=== PATIENT | female | born 1940 | race Caucasian/White ===

== ENCOUNTER 2022-08-01 12:37 | Outpatient (CLI) | payer MEDICARE, OTHER, SELFPAY ==
[2022-08-01 15:31] LABS: Chloride* 105 mmol/L (96-114)
[2022-08-01 15:32] LABS: Potassium* 4.5 mmol/L (3.6-5.1); Sodium* 139 mmol/L (135-149)
[2022-08-01 15:34] LABS: Carbon Dioxide* 30 mmol/L (20-32); Cholesterol* 193 mg/dL (90-199); Creatinine* 1.3 mg/dL (0.5-1.5); Estimated Glomerular Filt Rate 42 ml/min
[2022-08-01 15:35] LABS: Blood Urea Nitrogen* 30 mg/dL (7-30); Calcium* 8.9 mg/dL (8.4-10.6); Glucose* 81 mg/dL (60-115); HDL Cholesterol* 50 mg/dL (>=50); LDL Cholesterol Calculated 109 mg/dL (<100); Triglycerides* 168 mg/dL (40-149)
[2022-08-01 15:51] LABS: Vitamin D 25 Hydroxy* 31 ng/mL (30-80)
== END 2022-08-01 12:38 | disposition home or self-care (01) ==
PROVIDERS: PCP Internal Medicine; Visit Provider Internal Medicine
DX: M81.0 Age-related osteoporosis without current pathological fracture (principal); I10 Essential (primary) hypertension; Z13.6 Encounter for screening for cardiovascular disorders
CPT/HCPCS: 80048; 80061; 82306

== ENCOUNTER 2023-01-31 12:58 | Outpatient (CLI) | payer MEDICARE, OTHER, SELFPAY | END 2023-01-31 12:59 | disposition home or self-care (01) | LOC: AMB 02-01 09:10 | PROVIDERS: PCP Internal Medicine; Visit Provider Family Medicine | DX: J96.91 Respiratory failure, unspecified with hypoxia (principal) | CPT/HCPCS: A0425; A0428 ==

== ENCOUNTER 2023-03-21 13:50 | Inpatient (IN) | payer MEDICARE, OTHER, SELFPAY ==
[2023-03-21] VITALS (21 sets, daily range): BP systolic 82–146; BP diastolic 41–127; PULSE 76–94; RESP 18–24; TEMP 36.2–37.8; O2SAT 88–100; BMI 26.5; BMI 26.7
--- NOTE | 2023-03-21 14:07 | ED_ITS ---
HPI - General Adult General Time Seen by Provider: 14:07 Date Seen: 03/21/23 Chief complaint: Cough Stated complaint: Cough, low O2/BP Time Seen by Provider: 03/21/23 13:53 Source: patient and RN notes reviewed Mode of arrival: ambulatory Limitations: no limitations History of Present Illness HPI narrative: Patient is an 82-year-old female accompanied by her referred by her physical therapist for hypoxia and hypotension at her appointment today. She states she is not lightheaded, does not feel weak. Her feels that she was more ?lethargic? today. She believes she started coughing today, her thinks is probably last night. She does not think she aspirated but her isn't sure. There are no documented fevers. No other concerning symptoms. She was 88% at physical therapy and reportedly usually is in the higher 90s on her oxygenation. She was hospitalized January 26 through January 31 here at [place] for aspiration pneumonia. There reportedly was a speech pathology assessment but I do not see it at this time. 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 She has been taking her anticoagulant for which she is on this for history of pulmonary embolism. Related Data Home Medications Medication Instructions Recorded Confirmed albuterol 90 mcg/actuation aerosol 2 spray inhalation Q4H PRN 08/08/22 03/21/23 inhaler calcium carbonate 500 mg calcium 500 mg PO DAILY 08/08/22 03/21/23 (1,250 mg) tablet cyanocobalamin (vitamin B-12) 100 100 mcg PO DAILY 08/08/22 03/21/23 mcg tablet magnesium oxide 400 mg PO DAILY 08/08/22 03/21/23 melatonin 3 mg capsule 3 mg PO HS PRN 08/08/22 03/21/23 dexamethasone 4 mg tablet 20 mg PO .WEEKLY 01/17/23 03/21/23 carvedilol 12.5 mg tablet 6.25 mg PO BID 01/27/23 03/21/23 mirtazapine 7.5 mg tablet 7.5 mg PO HS 01/27/23 03/21/23 pregabalin 75 mg capsule 75 mg PO DAILY 01/27/23 03/21/23 Previous Rx's Medication Instructions Recorded rivaroxaban 20 mg tablet (Xarelto) See Rx Instructions .Route 10/05/22 .COMPLEX #90 tabs acetaminophen 325 mg tablet 650 mg (2 x 325 mg) PO QID PRN #30 01/31/23 tabs Allergies Allergy/AdvReac Type Severity Reaction Status Date / Time No Known Allergies Allergy Unknown Verified 03/21/23 16:15 Review of Systems Status of ROS: Reports: 6 or more systems reviewed and unremarkable except as noted in History and [facility] History History of breast cancer ?Z85.3 - Personal history of malignant neoplasm of breast (ICD-10) Surgical History History of placement of ear tubes (10/22/12) ?Z96.22 - Myringotomy tube(s) status (ICD-10) 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 They also have a home in [place] but have primarily been living here since [facility]. Home here is handicap assessable in the live on 1 level. They have a caregiver who comes to their h ome in the afternoon 3 days a week from 130-430 on Monday and . Remote history of minimal smoking. She drinks up to a half glass of wine a day and her notes she is not even drinking her half glass every day anymore What is your current living situation?: I presently have a place to live Problems where you live: no known problems In the past 12 months, utilities in danger of being shut off: no In the past 12 mos, have been you worried that your food would run out before you had money to buy more?: never true In the past 12 mos, the food you bought just didn't last and you didn't have money to buy more?: never true Highest level of school completed/degree received: Bachelor's degree Smoking Status: Never smoker Do you use any of these nicotine containing products: None Second hand tobacco smoke exposure: No How often do you have a drink containing alcohol: 2-4 times a month Alcohol type: wine How many standard drinks containing alcohol do you have on a typical day: 1 or 2 How often do you have six or more drinks on one occasion: Never AUDIT-C Alcohol total score: 2 Non-prescribed substance use: denies use Caffeine: Yes (1 CAN PEPSIS/DAY) How often does anyone, including family, friends and others, physically hurt you : never How often does anyone, including family, friends and others, insult or talk down to you: never How often does anyone, including family, friends and others, threaten you with harm: never How often does anyone, including family, friends and others, scream or curse at you: never Little interest or pleasure in doing things: not at all Feeling down, depressed, or hopeless: not at all service: No Exam Const: Vital Signs, click to edit/add: Vital Signs - 24 hr 03/21/23 13:54 03/21/23 15:02 03/21/23 15:02 Temperature 97.1 F L Pulse Rate Pulse Rate [Left] 76 Respiratory Rate 18 Blood Pressure Blood Pressure [Ri ght Forearm] Blood Pressure [Ri ght Upper Arm] 128/80 Pulse Oximetry 88 100 100 Oxygen Delivery Me thod Room Air Nasal Cannula Oxygen Flow Rate 2 03/21/23 16:25 03/21/23 16:28 03/21/23 16:29 Temperature 97.3 F L Pulse Rate 86 87 Pulse Rate [Left] 94 Respiratory Rate 20 Blood Pressure 141/123 H Blood Pressure [Ri ght Forearm] Blood Pressure [Ri ght Upper Arm] 143/127 H Pulse Oximetry 96 94 94 Oxygen Delivery Me thod Nasal Cannula Nasal Cannula Nasal Cannula Oxygen Flow Rate 1 1 1 03/21/23 16:30 03/21/23 16:33 03/21/23 16:38 Temperature Pulse Rate 87 88 Pulse Rate [Left] Respiratory Rate Blood Pressure 143/127 H Blood Pressure [Ri ght Forearm] 146/89 H Blood Pressure [Ri ght Upper Arm] Pulse Oximetry 95 92 Oxygen Delivery Me thod Nasal Cannula Nasal Cannula Oxygen Flow Rate 1 1 03/21/23 16:38 03/21/23 16:39 03/21/23 17:00 Temperature Pulse Rate 91 88 89 Pulse Rate [Left] Respiratory Rate Blood Pressure 146/89 H Blood Pressure [Ri ght Forearm] Blood Pressure [Ri ght Upper Arm] Pulse Oximetry 91 93 92 Oxygen Delivery Me thod Nasal Cannula Nasal Cannula Nasal Cannula Oxygen Flow Rate 1 1 1 03/21/23 17:03 Temperature Pulse Rate 89 Pulse Rate [Left] Respiratory Rate Blood Pressure 115/84 Blood Pressure [Ri ght Forearm] Blood Pressure [Ri t Upper Arm] Pulse Oximetry 93 Oxygen Delivery Me thod Nasal Cannula Oxygen Flow Rate 1 Documenting provider has reviewed patient's vital signs: yes Common normals: no apparent distress, oriented x3, no limitations and alert General appearance: cooperative, comfortable, well kempt and frail appearing HENMT: Common normals: normocephalic, head/scalp atraumatic, hearing grossly normal bilaterally and external nose normal Head and scalp: normocephalic and atraumatic Face and sinus: normal facial exam Nose: external nose normal Eye: Common normals: PERRL, EOMs intact bilaterally, conjunctivae normal and no scleral icterus Conjunctiva: conjunctiva(e) normal Pupil: PERRL Neck & C-Spine: Common normals: full ROM, no lymphadenopathy, supple, no meningeal signs, no JVD and thyroid normal Thyroid: thyroid normal Chest: Common normals: inspection of chest normal and palpation of chest normal Resp: Common normals: normal respiratory effort, no retractions and no use of accessory muscles Effort & inspection: able to speak in complete sentences Other: Has rhonchi heard throughout, difficulty sitting up on her own to listen to her lungs posteriorly. Cardio: Common normals: no JVD, regular rate, regular rhythm, S1 normal heart sound, S2 normal heart sound, no gallops, no clicks and no murmurs Rate: regular rate Rhythm: regular rhythm Heart sounds: S1 normal and S2 normal GI: Common normals: Normal to inspection, nondistended, normoactive bowel sounds present, soft to palpation, non-tender, no hepatosplenomegaly and no masses Palpation: soft and no hepatosplenomegaly Extremity: Other: Really no use of her right lower extremity, chronic thickened changes of this extremity. Did need to straighten her foot. No significant left lower extremity edema noted or skin changes. Neuro: Common normals: oriented x3 Sensorium/orientation: alert Meningeal signs: no meningeal signs Psych: Appearance: well kempt Course Course Hospital Course: Patient is an 82-year-old female with history of aspiration pneumonia here with asymptomatic hypotension, hypoxia. Most likely would be a recurrent aspiration event last night. It is possible that this is a new infectious etiology. We do have the triple viral swab pending, blood cultures and full complement of labs. Will proceed for better delineation of lung processes. Will place her on supplemental oxygen, consider cardiac manifestations of respiratory illness. Will have her on cardiac monitoring, pulse oximetry and get a baseline EKG. Consultations Consultation #1: Have spoken with Dr. Hernandez regarding this patient. Is likely a new aspiration pneumonia versus community-acquired pneumonia, patient has been stable here, no hypotension. Low-dose oxygen has recovered her hypoxia. Discussed antibiotics given that she was just in in the beginning of January. We have settled on Unasyn, have ordered 3 g IV. Will go now and let patient or no plan for hospitalization. Time: 17:15 Vital Signs Vital signs: Initial Vital Signs Temperature 97.1 F L 03/21/23 13:54 Temperature Source Temporal Artery Scan 03/21/23 13:54 Pulse Rate 76 03/21/23 13:54 Respiratory Rate 18 03/21/23 13:54 Blood Pressure 128/80 03/21/23 13:54 Blood Pressure Mean 96 03/21/23 13:54 Blood Pressure Position Sitting 03/21/23 13:54 Pulse Oximetry 88 03/21/23 13:54 Oxygen Delivery Method Room Air 03/21/23 13:54 Vital Signs Temperature 97.1 F L 03/21/23 13:54 Pulse Rate 76 03/21/23 13:54 Respiratory Rate 18 03/21/23 13:54 Blood Pressure 128/80 03/21/23 13:54 Pulse Oximetry 88 03/21/23 13:54 Oxygen Delivery Method Room Air 03/21/23 13:54 Temperature 97.3 F L 03/21/23 16:29 Pulse Rate 89 03/21/23 17:03 Respiratory Rate 20 03/21/23 16:29 Blood Pressure 115/84 03/21/23 17:03 Pulse Oximetry 93 03/21/23 17:03 Oxygen Delivery Method Nasal Cannula 03/21/23 17:03 Oxygen Flow Rate 1 03/21/23 17:03 Medical Decision Making Lab Data Labs: Lab Results 03/21/23 03/21/23 03/21/23 Range/Units 14:22 14:42 14:55 WBC 3.28 L (4.50-11.00) K/uL RBC 3.37 L (4.00-5.20) m/uL Hgb 10.4 L (12.0-16.0) gm/dL Hct 32.9 L (33.0-51.0) % MCV 98 (80-100) fL MCH 31 (26-34) pg MCHC 32 (32-36) gm/dL RDW Coeff of Ambreen 18.6 H (11.5-15.5) % Plt Count 112 L (140-440) K/uL Neut % (Auto) 55.5 (42.0-72.0) % Lymph % (Auto) 28.0 (20-44) % Crawford % (Auto) 11.9 H (0.0-11.0) % Eos % (Auto) 4.3 (0.0-7.0) % Baso % (Auto) 0.3 (0.0-3.0) % Neut # (Auto) 1.80 (1.7-7.0) K/uL Lymph # (Auto) 0.90 (0.90-2.90) K/uL Crawford # (Auto) 0.40 (0.00-0.90) K/UL Eos # (Auto) 0.10 (0.00-0.50) K/uL Baso # (Auto) 0.00 (0.00-0.30) K/uL Abs Immat Gran (auto) 0.00 (0.00-0.30) K/uL Imm/Tot Granulo (auto) 0.0 % VBG pH 7.370 (7.32-7.43) VBG pCO2 53 H (40-50) mmHG VBG pO2 34.7 (25-47) mmHG VBG HCO3 31 H (21-28) mmol/L Sodium 140 (135-149) mmol/L Potassium 3.9 (3.6-5.1) mmol/L Chloride 103 (96-114) mmol/L Carbon Dioxide 33 H (20-32) mmol/L BUN 26 (7-30) mg/dL Creatinine 1.1 (0.5-1.5) mg/dL Estimated Creat Clear 31.72 Estimated GFR 50 ml/min Glucose 81 (60-115) mg/dL Lactate 0.8 (0.5-1.9) mmol/L Calcium 9.7 (8.4-10.6) mg/dL Total Bilirubin 0.6 (0.1-1.5) mg/dL AST 27 (12-35) U/L ALT 18 (4-35) U/L Alkaline Phosphatase 51 (40-150) U/L C-Reactive Protein < 0.5 L (0.5-1.0) mg/dL NT-Pro-B Natriuret Pep 646 pg/mL Total Protein 6.1 (6.0-8.3) g/dL Albumin 3.9 (3.3-5.0) g/dL SARS-CoV-2 (PCR) Negative SARS-CoV-2 (Negative) Influenza Type A (PCR) Negative PCR FLU A (Negative) Influenza Type B (PCR) Negative PCR FLU B (Negative) RSV (PCR) Negative PCR RSV (Negative) POC Troponin I 0.02 (0.01-0.04) ng/ml Imaging Data CT scan - chest: Attestation: I have reviewed the pertinent imaging results. Radiologist's impression: Patient: KARTIK VEGA Facility:?[facility] Patient ID:?[id number] Site Patient ID:?[id number]. Site :?[id number] Study:?CT Chest 75 CC ISOVUE 370-03/21/2023 4:14:38 PM Ordering Physician:Renee Whitaker Final Report: INDICATION: COUGH, HYPOXIA. TECHNIQUE: CT chest without contrast. COMPARISON: None. FINDINGS: Lungs and pleura: Left lower lobe medial consolidation with bronchiectasis may represent atelectasis or scarring. Superimposed infection not entirely excluded. Additional scattered areas of linear opacities likely atelectasis or scarring. No pleural effusions, pleural thickening, or pneumothorax. Heart and vasculature: Heart size is normal. Thoracic aorta is borderline dilated measuring 41 millimeters in diameter. Dilation of the main pulmonary artery measuring up to 31 millimeters in diameter, which can be seen in the setting pulmonary hypertension.. Lymph nodes/mediastinum: No mediastinal, hilar, or axillary adenopathy. Chest wall: Calcification in the left breast (2/34) with associated small soft tissue. Correlate with mammogram.. Right-sided Port-A-Cath with distal tip at the SVC. Upper abdomen: No significant findings. Small hiatal hernia. Bones: Unremarkable for age. Diffuse demineralization of the visualized bones. IMPRESSION: Left lower lobe consolidation with bronchiectasis may represent atelectasis or scarring. Superimposed infection/aspiration not entirely excluded. Borderline enlarged ascending aorta measuring up to 41 millimeters in diameter. Dilated main pulmonary artery which can be seen in the setting of pulmonary hypertension. Please note that all CT scans at this facility use dose modulation, iterative reconstruction, and/or weight-based dosing when appropriate to reduce radiation dose to as low as reasonably achievable. Dictated by Jamel Parsons MD @ 03/21/2023 4:51:48 PM (Electronic Signature) ECG Data Attestation: I personally reviewed and interpreted this ECG as follows: (Sinus rhythm with rate of 77 beats per minute. No definitive ischemia noted but flipped T-waves lead V1 and flattened in V2 V3.) Prior ECG tracings: not available for review Discharge Plan Discharge Prescriptions: No Action melatonin 3 mg capsule 3 mg PO HS PRN magnesium oxide 400 mg magnesium capsule 400 mg PO DAILY calcium carbonate 500 mg calcium (1,250 mg) tablet 500 mg PO DAILY cyanocobalamin (vitamin B-12) 100 mcg tablet 100 mcg PO DAILY albuterol 90 mcg/actuation aerosol 2 spray inhalation Q4H PRN dexamethasone 4 mg tablet 20 mg PO .WEEKLY Hold Instructions: Resume on 02/28/23. carvedilol 12.5 mg tablet 6.25 mg PO BID Rx Instructions: TAKE HALF TABLET BY MOUTH TWICE DAILY WITH A MEAL mirtazapine 7.5 mg tablet 7.5 mg PO HS pregabalin 75 mg capsule 75 mg PO DAILY acetaminophen 325 mg tablet 650 mg PO QID PRNQty: 30 0RF Xarelto 20 mg tablet See Rx Instructions .ROUTE .COMPLEX Qty: 90 3RF Dose Instruction: TAKE 1 TABLET BY MOUTH DAILY WITH EVENING MEAL Rx Instructions: TAKE 1 TABLET BY MOUTH DAILY WITH EVENING MEAL Follow Up/Referrals: Marylou Roberts MD [Primary Care Provider] -
--- NOTE | 2023-03-21 14:21 | CRLHL7_ITS ---
For Patients: As a result of the Century Cures Act, medical imaging exams and procedure reports are released immediately into your electronic medical record. You may view this report before your referring provider. If you have questions, please contact your health care provider. INDICATION: COUGH, HYPOXIA. TECHNIQUE: CT chest without contrast. COMPARISON: None. FINDINGS: Lungs and pleura: Left lower lobe medial consolidation with bronchiectasis may represent atelectasis or scarring. Superimposed infection not entirely excluded. Additional scattered areas of linear opacities likely atelectasis or scarring. No pleural effusions, pleural thickening, or pneumothorax. Heart and vasculature: Heart size is normal. Thoracic aorta is borderline dilated measuring 41 millimeters in diameter. Dilation of the main pulmonary artery measuring up to 31 millimeters in diameter, which can be seen in the setting pulmonary hypertension.. Lymph nodes/mediastinum: No mediastinal, hilar, or axillary adenopathy. Chest wall: Calcification in the left breast (2/34) with associated small soft tissue. Correlate with mammogram.. Right-sided Port-A-Cath with distal tip at the SVC. Upper abdomen: No significant findings. Small hiatal hernia. Bones: Unremarkable for age. Diffuse demineralization of the visualized bones. IMPRESSION: Left lower lobe consolidation with bronchiectasis may represent atelectasis or scarring. Superimposed infection/aspiration not entirely excluded. Borderline enlarged ascending aorta measuring up to 41 millimeters in diameter. Dilated main pulmonary artery which can be seen in the setting of pulmonary hypertension. Please note that all CT scans at this facility use dose modulation, iterative reconstruction, and/or weight-based dosing when appropriate to reduce radiation dose to as low as reasonably achievable. Dictated by Jamel Parsons MD @ 03/21/2023 4:51:48 PM (Electronically Signed)
[2023-03-21 15:05] LABS: HCO3 VBG 31 mmol/L (21-28); Lactate* 0.8 mmol/L (0.5-1.9); PCO2 VBG 53 mmHG (40-50); PO2 VBG 34.7 mmHG (25-47)
[2023-03-21 15:06] LABS: Basophils Percent Auto 0.3 % (0.0-3.0); Eosinophils Percent Auto 4.3 % (0.0-7.0); Hematocrit 32.9 % (33.0-51.0); Hemoglobin* 10.4 gm/dL (12.0-16.0); Mean Corpuscular HGB Conc 32 gm/dL (32-36); Mean Corpuscular Hemoglobin 31 pg (26-34); Mean Corpuscular Volume 98 fL (80-100); Monocytes Percent Auto 11.9 % (0.0-11.0); Neutrophils Percent Auto 55.5 % (42.0-72.0); Platelet Count* 112 K/uL (140-440); RDW Coefficient of Variation % 18.6 % (11.5-15.5); Red Blood Count 3.37 m/uL (4.00-5.20); White Blood Count* 3.28 K/uL (4.50-11.00)
[2023-03-21 15:13] LABS: Troponin, Point-of-Care* 0.02 ng/ml (0.01-0.04)
[2023-03-21 15:14] LABS: Slide Review Reflex No
[2023-03-21 15:28] LABS: Albumin* 3.9 g/dL (3.3-5.0); Chloride* 103 mmol/L (96-114)
[2023-03-21 15:29] LABS: Potassium* 3.9 mmol/L (3.6-5.1); Sodium* 140 mmol/L (135-149)
[2023-03-21 15:31] LABS: Alkaline Phosphatase* 51 U/L (40-150); Aspartate Amino Transferase* 27 U/L (12-35); Bilirubin Total* 0.6 mg/dL (0.1-1.5); Carbon Dioxide* 33 mmol/L (20-32); Creatinine* 1.1 mg/dL (0.5-1.5); Est. Creatinine Clearance* 31.72; Estimated Glomerular Filt Rate 50 ml/min; Total Protein* 6.1 g/dL (6.0-8.3)
[2023-03-21 15:32] LABS: Alanine Aminotransferase* 18 U/L (4-35); Blood Urea Nitrogen* 26 mg/dL (7-30); Calcium* 9.7 mg/dL (8.4-10.6); Glucose* 81 mg/dL (60-115)
[2023-03-21 15:45] LABS: C Reactive Protein* < 0.5 mg/dL (0.5-1.0); NT Pro B Type NatriureticPept* 646 pg/mL
[2023-03-21 15:55] LABS: PCR FLU A Negative PCR FLU A (Negative); PCR FLU B Negative PCR FLU B (Negative); PCR RSV Negative PCR RSV (Negative)
[2023-03-21 15:59] LABS: SARS PCR* Negative SARS-CoV-2 (Negative)
--- NOTE | 2023-03-21 16:41 | ED.NURSE ---
pt handed off to other nurse
[2023-03-21] MEDS: AMPICILLIN/SULBACTAM 3 GM in 0.9 % SODIUM CHLORIDE Mini-bag 100 ML IVPB ×2 (17:29→22:58)
--- NOTE | 2023-03-21 19:21 | P.IMHP_ITS ---
Hospitalist- H&P: HPI History of Present Illness Time Seen by Provider: 19:22 Date Seen: 03/21/23 Chief complaint: Cough, low O2/BP Narrative: Jennifer Medrano is a 82 year old female with a history of polio and recent hospitalization for suspected aspiration pneumonia who presented for wet cough and rigors. She is sleepy and tells me she feels exhausted and is having hard time giving history. Her is in the room and gives the history. I have also obtained some of the history from her chart. She was hospitalized here in early January and discharged on the 31 of January for suspected aspiration pneumonia. She had a speech evaluation for swallowing on 01/30/2023 which she passed and did not have any diet changes as a result. She went to [address] [place] [address] for rehab and did well, being discharged home from there on 03/19/2023. She has had in-home PT and OT. She was back to her usual self and was progressing in PT and OT until last night when her noticed a junky cough. This morning she seemed like she was not herself in the PT who came to the home did vital signs noting that her oxygen saturations were 88% on room air, blood pressure 84/50, heart rate 75, and she was afebrile. Her noted that she then had some rigors. He also noted that she appeared very pale. She says she feels short of breath, denies chest pain. 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 - Postpolio syndrome (ICD-10) Peripheral neuropathy (04/21/11) ?G62.9 - Polyneuropathy, unspecified (ICD-10) Multiple myeloma (04/21/11) ?C90.00 - Multiple myeloma not having achieved remission (ICD-10) Hypothyroidism (04/21/11) ?E03.9 - Hypothyroidism, unspecified (ICD-10) Common variable hypogammaglobulinemia (2017) ?D80.1 - Nonfamilial hypogammaglobulinemia (ICD-10) Essential hypertension ?I10 - Essential (primary) hypertension (ICD-10) Chemotherapy-induced peripheral neuropathy ?G62.0 - Drug-induced polyneuropathy (ICD-10) ?T45.1X5A - Adverse effect of antineoplastic and immunosuppressive drugs, initial encounter (ICD-10) Chronic insomnia ?F51.04 - Psychophysiologic insomnia (ICD-10) History of pulmonary embolism ?Z86.711 - Personal history of pulmonary embolism (ICD-10) History of breast cancer ?Z85.3 - Personal history of malignant neoplasm of breast (ICD-10) Surgical History History of placement of ear tubes (10/22/12) ?Z96.22 - Myringotomy tube(s) status (ICD-10) History of autologous stem cell transplant (04/21/11) ?Z94.84 - Stem cells transplant status (ICD-10) Social History (Updated 03/21/23 @ 20:45 by Terra Hernandez MD) Narrative: She lives in [place] with her . They also have a home in [place] but have primarily been living here since [facility]. Home here is handicap assessable in the live on 1 level. They have a caregiver who comes to their home in the afternoon 3 days a week from 130-430 on Monday and . Remote history of minimal smoking. She drinks up to a half glass of wine a day since returning home from [facility]. What is your current living situation?: I presently have a place to live Problems where you live: no known problems Problems where you live details: none In the past 12 months, utilities in danger of being shut off: no In the past 12 mos, have been you worried that your food would run out before you had money to buy more?: never true In the past 12 mos, the food you bought just didn't last and you didn't have money to buy more?: never true Highest level of school completed/degree received: Bachelor's degree Smoking Status: Never smoker Do you use any of these nicotine containing products: None Second hand tobacco smoke exposure: No How often do you have a drink containing alcohol: 2-4 times a month Alcohol type: wine How many standard drinks containing alcohol do you have on a typical day: 1 or 2 How often do you have six or more drinks on one occasion: Never AUDIT-C Alcohol total score: 2 Non-prescribed substance use: denies use Caffeine: Yes (1 CAN PEPSIS/DAY) How often does anyone, including family, friends and others, physically hurt you : never How often does anyone, including family, friends and others, insult or talk down to you: never How often does anyone, including family, friends and others, threaten you with harm: never How often does anyone, including family, friends and others, scream or curse at you: never Little interest or pleasure in doing things: not at all Feeling down, depressed, or hopeless: not at all service: No Meds Home Medications and Allergies Home Medications Medication Instructions Recorded Confirmed Type albuterol 90 mcg/actuation aerosol 2 spray inhalation Q4H PRN 08/08/22 03/21/23 History inhaler calcium carbonate 500 mg calcium 500 mg PO DAILY 08/08/22 03/21/23 History (1,250 mg) tablet cyanocobalamin (vitamin B-12) 100 100 mcg PO DAILY 08/08/22 03/21/23 History mcg tablet magnesium oxide 400 mg PO DAILY 08/08/22 03/21/23 History melatonin 3 mg capsule 3 mg PO HS PRN 08/08/22 03/21/23 History dexamethasone 4 mg tablet 20 mg PO .WEEKLY 01/17/23 03/21/23 History carvedilol 12.5 mg tablet 6.25 mg PO BID 01/27/23 03/21/23 History mirtazapine 7.5 mg tablet 7.5 mg PO HS 01/27/23 03/21/23 History pregabalin 75 mg capsule 75 mg PO DAILY 01/27/23 03/21/23 History rivaroxaban 20 mg tablet (Xarelto) 20 mg PO QPM 03/21/23 03/21/23 History Allergies Allergy/AdvReac Type Severity Reaction Status Date / Time No Known Allergies Allergy Unknown Verified 03/21/23 16:15 Exam Narrative: Exam Narrative: General: No acute distress. Sleepy, arousable, smiles when I look at her, oriented x3. HEENT: Normocephalic atraumatic, pupils equally round and reactive to light and accommodation. Oropharynx clear. Mucous membranes are moist. No cervical lymphadenopathy, thyromegaly or carotid bruits. No JVD. Cardiovascular: Regular rate and rhythm. No murmurs, gallops, or rubs. Chest: No increased work of breathing. Very shallow inspiration. Bibasilar crackles. Abdomen: Bowel sounds present. Soft, nondistended, nontender. No hepatosplenomegaly or masses. Extremities: 1+ bilateral pretibial edema, no cyanosis or clubbing. Skin: Pallor noted. No jaundice, no rashes. Neuro: Right foot and ankle are chronically flaccid. Pedal status as above. No other focal deficits noted. Const: Vital Signs, click to edit/add: Vital Signs - 24 hr 03/21/23 13:54 03/21/23 15:02 03/21/23 15:02 Temperature 97.1 F L Pulse Rate Pulse Rate [Left] 76 Respiratory Rate 18 Blood Pressure Blood Pressure [Ri ght Forearm] Blood Pressure [Ri ght Upper Arm] 128/80 Pulse Oximetry 88 100 100 Oxygen Delivery Me thod Room Air Nasal Cannula Oxygen Flow Rate 2 03/21/23 16:25 03/21/23 16:28 03/21/23 16:29 Temperature 97.3 F L Pulse Rate 86 87 Pulse Rate [Left] 94 Respiratory Rate 20 Blood Pressure 141/123 H Blood Pressure [Ri ght Forearm] Blood Pressure [Ri ght Upper Arm] 143/127 H Pulse Oximetry 96 94 94 Oxygen Delivery Me thod Nasal Cannula Nasal Cannula Nasal Cannula Oxygen Flow Rate 1 1 1 03/21/23 16:30 03/21/23 16:33 03/21/23 16:38 Temperature Pulse Rate 87 88 Pulse Rate [Left] Respiratory Rate Blood Pressure 143/127 H Blood Pressure [Ri ght Forearm] 146/89 H Blood Pressure [Ri ght Upper Arm] Pulse Oximetry 95 92 Oxygen Delivery Me thod Nasal Cannula Nasal Cannula Oxygen Flow Rate 1 1 03/21/23 16:38 03/21/23 16:39 03/21/23 17:00 Temperature Pulse Rate 91 88 89 Pulse Rate [Left] Respiratory Rate Blood Pressure 146/89 H Blood Pressure [Ri ght Forearm] Blood Pressure [Ri ght Upper Arm] Pulse Oximetry 91 93 92 Oxygen Delivery Me thod Nasal Cannula Nasal Cannula Nasal Cannula Oxygen Flow Rate 1 1 1 03/21/23 17:03 03/21/23 17:04 03/21/23 17:30 Temperature Pulse Rate 89 87 86 Pulse Rate [Left] Respiratory Rate Blood Pressure 115/84 Blood Pressure [Ri ght Forearm] Blood Pressure [Ri ght Upper Arm] Pulse Oximetry 93 94 94 Oxygen Delivery Me thod Nasal Cannula Oxygen Flow Rate 1 03/21/23 17:31 03/21/23 18:26 Temperature 99.5 F Pulse Rate 84 Pulse Rate [Left] Respiratory Rate 20 Blood Pressure 107/76 Blood Pressure [Ri ght Forearm] Blood Pressure [Ri ght Upper Arm] Pulse Oximetry 94 93 Oxygen Delivery Me thod Nasal Cannula Oxygen Flow Rate 2.5 Documenting provider has reviewed patient's vital signs: yes Hospitalist - H&P: Result Labs Labs: Short CBC 03/21/23 Range/Units 14:55 WBC 3.28 L (4.50-11.00) K/uL Hgb 10.4 L (12.0-16.0) gm/dL Hct 32.9 L (33.0-51.0) % Plt Count 112 L (140-440) K/uL BMP 03/21/23 14:55 Sodium 140 Potassium 3.9 Chloride 103 Carbon Dioxide 33 H BUN 26 Creatinine 1.1 Glucose 81 Calcium 9.7 Liver Function 03/21/23 Range/Units 14:55 Total Bilirubin 0.6 (0.1-1.5) mg/dL AST 27 (12-35) U/L ALT 18 (4-35) U/L Alkaline Phosphatase 51 (40-150) U/L Albumin 3.9 (3.3-5.0) g/dL EKG: Sinus rhythm with premature atrial complexes. 77 beats per minute. Low-voltage QRS. Nonspecific ST and T-wave abnormality. Ordering Physician: Julianne Villalba M.D. Date of Service: 03/21/23 Procedure(s): CT chest w con Accession Number(s): [id number] cc: Marylou Roberts M.D.; Julianne Villalba M.D.~ For Patients: As a result of the Cures Act, medical imaging exams and procedure reports are released immediately into your electronic medical record. You may view this report before your referring provider. If you have questions, please contact your health care provider. INDICATION: COUGH, HYPOXIA. TECHNIQUE: CT chest without contrast. COMPARISON: None. FINDINGS: Lungs and pleura: Left lower lobe medial consolidation with bronchiectasis may represent atelectasis or scarring. Superimposed infection not entirely excluded. Additional scattered areas of linear opacities likely atelectasis or scarring. No pleural effusions, pleural thickening, or pneumothorax. Heart and vasculature: Heart size is normal. Thoracic aorta is borderline dilated measuring 41 millimeters in diameter. Dilation of the main pulmonary artery measuring up to 31 millimeters in diameter, which can be seen in the setting pulmonary hypertension.. Lymph nodes/mediastinum: No mediastinal, hilar, or axillary adenopathy. Chest wall: Calcification in the left breast (2/34) with associated small soft tissue. Correlate with mammogram.. Right-sided Port-A-Cath with distal tip at the SVC. Upper abdomen: No significant findings. Small hiatal hernia. Bones: Unremarkable for age. Diffuse demineralization of the visualized bones. IMPRESSION: Left lower lobe consolidation with bronchiectasis may represent atelectasis or scarring. Superimposed infection/aspiration not entirely excluded. Borderline enlarged ascending aorta measuring up to 41 millimeters in diameter. Dilated main pulmonary artery which can be seen in the setting of pulmonary hypertension. Please note that all CT scans at this facility use dose modulation, iterative reconstruction, and/or weight-based dosing when appropriate to reduce radiation dose to as low as reasonably achievable. Dictated by Jamel Parsons MD @ 03/21/2023 4:51:48 PM (Electronically Signed) Assessment and Plan Assessment and plan (1) Acute hypoxemic respiratory failure: Problem comment: Acute on chronic Status: Acute (2) Pneumonia: Status: Acute (3) Dementia: Problem comment: At [address] [place] [address], SLUMS score 17/30 and dementia was diagnosed Status: Chronic (4) Frailty syndrome in geriatric patient: Status: Acute (5) Hypothyroidism: Problem comment: on replacement in past Status: Chronic (6) History of pulmonary embolism: Problem comment: around 2015, on xarelto (had DVT in past felt to be related to tamoxifen use) Status: Chronic (7) Post-polio syndrome: Problem comment: 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 Wheel-chair bound Status: Chronic (8) Multiple myeloma: Problem comment: Dxed 07/2010, s/p autologous stem cell transplant 02/2011, chemotherapy started at [facility] 2012. Not in remission. Pending ongoing therapy through [facility] soon. Needs clinical improvement before she can proceed with more treatment of her myeloma. Presently has pancytopenia. Status: Chronic (9) Common variable hypogammaglobulinemia: Problem comment: due to multiple myeloma Status: Chronic (10) Essential hypertension: Problem comment: Dxed 2005. No longer on treatment Status: Chronic Plan Admit for treatment of acute hypoxemic respiratory failure suspect secondary to probable pneumonia and known pulmonary hypertension. She was on Rocephin and azithromycin last time in then got switched to levofloxacin to finish out treatment. I will start her on Unasyn. Speech therapy did a swallow evaluation during her last hospitalization and I am not sure that repeating this would have any utility at this time. Her notes that she does a lot of laying in bed and rarely sits up and hardly ever stands which has likely contributed to atelectasis and poor inspiratory effort which contributes to risk of developing pneumonia. She is quite weak this evening so I am not sure if she will be able to participate with incentive spirometry or vibratory pep, but I will order these and wished her to try to do so. I have also ordered respiratory therapy to see her tomorrow. In the meantime I have also ordered nebulizers and furosemide as she does appear to have some amount of volume overload which may be contributing to this duration. I have written for the head of bed to remain elevated. She is no longer hypotensive and so I think it is safe to give her a diuretic tonight. Hopefully she will be able to participate in PT and OT tomorrow and I have ordered social work as she will likely need rehab again. I spoke with her about how wine can relax a person and also relaxed the lower esophageal sphincter which may also contribute to aspiration. The patient was agreeable to avoid alcohol at home. We also discussed the possibility that as she gets older and with post-polio syndrome, she is likely getting weaker and having poor inspiratory effort and she can likely expect recurrent hospitalizations for the same.
[2023-03-21] MEDS: MIRTAZAPINE 15 MG TABLET 7.5 MG PO (21:23)
[2023-03-21] MEDS: FUROSEMIDE 10 MG/ML inj 40 MG IVP (21:23)
[2023-03-21] MEDS: carvediloL 6.25 MG TABLET PO (21:23)
[2023-03-21] MEDS: SODIUM CHLORIDE 0.9 % (FLUSH) 10 ML SYRINGE 5 ML IVF (21:23)
[2023-03-21] MEDS: ALBUTEROL SULFATE 2.5 MG/3 ML VIAL.NEB NEB (21:30)
[2023-03-21] MEDS: ACETAMINOPHEN 325 MG TABLET 650 MG PO (21:54)
[2023-03-21 22:44] LABS: HCO3 VBG 29 mmol/L (21-28); PCO2 VBG 46 mmHG (40-50); PO2 VBG 55.7 mmHG (25-47); pH VBG 7.408 (7.32-7.43)
[2023-03-21] MEDS: METHYLPREDNISOLONE SOD SUCC 62.5 MG/ML (125) 60 MG IVP (22:53)
[2023-03-22] VITALS (23 sets, daily range): BP systolic 82–133; BP diastolic 37–72; PULSE 61–95; RESP 16–20; TEMP 35.9–36.7; O2SAT 90–991; BMI 26.8
[2023-03-22] MEDS: AMPICILLIN/SULBACTAM 3 GM in 0.9 % SODIUM CHLORIDE Mini-bag 100 ML IVPB ×3 (05:06→22:56)
[2023-03-22] MEDS: METHYLPREDNISOLONE SOD SUCC 62.5 MG/ML (125) 60 MG IVP ×4 (05:06→22:50)
--- NOTE | 2023-03-22 05:56 | PC.NURSE ---
[id number] at beginning of shift, Pt with difficultly clearing secretions, she is weak and tired, does not speak in full sentences but does nod head yes/no, occasionally talks in single word responses. she falls asleep frequently during assessment. O2 required to maintain sats >90%. Approx 2220, pt BP 85/45, charge nurse and MD updated and came to bedside. New order of solu-medrol given, md believes pt is exhausted with possibility of side effects from HS meds given. MD reassessed pt prior to leaving, no new orders obtained. Pt BP remained 80's/40's with maps in mid 50's to low 60's remainder of night, difficult to arouse but when awake answers questions appropriately and follows directions, able to open eyes, stick out tongue and smile. Pt pupils are pinpoint, reactive to light, round, equal. HR stable in 70's NSR. High temp of 100.1, tylenol given with HS meds afbrile remainder of night. No urine output during the night. Moist cough heard, continues to have difficulty clearing secretions.
[2023-03-22 06:34] LABS: Basophils Absolute Auto 0.01 K/uL (0.00-0.30); Basophils Percent Auto 0.2 % (0.0-3.0); Hematocrit 31.6 % (33.0-51.0); Hemoglobin* 10.3 gm/dL (12.0-16.0); Immature Granulocytes Abs Auto 0.01 K/uL (0.00-0.30); Immature Granulocytes Pct Auto 0.2 %; Lymphocytes Percent Auto 10.5 % (20-44); Mean Corpuscular HGB Conc 33 gm/dL (32-36); Mean Corpuscular Hemoglobin 32 pg (26-34); Mean Corpuscular Volume 99 fL (80-100); Neutrophils Percent Auto 85.1 % (42.0-72.0); Platelet Count* 93 K/uL (140-440); RDW Coefficient of Variation % 18.7 % (11.5-15.5); Red Blood Count 3.19 m/uL (4.00-5.20); White Blood Count* 5.53 K/uL (4.50-11.00)
[2023-03-22 06:37] LABS: Slide Review Reflex No
[2023-03-22 06:44] LABS: Chloride* 105 mmol/L (96-114)
[2023-03-22 06:45] LABS: Sodium* 142 mmol/L (135-149)
[2023-03-22 06:47] LABS: Creatinine* 1.4 mg/dL (0.5-1.5); Est. Creatinine Clearance* 24.93; Estimated Glomerular Filt Rate 38 ml/min
[2023-03-22 06:48] LABS: Blood Urea Nitrogen* 27 mg/dL (7-30); Calcium* 8.8 mg/dL (8.4-10.6); Carbon Dioxide* 31 mmol/L (20-32); Glucose* 174 mg/dL (60-115)
[2023-03-22 07:04] LABS: Procalcitonin* 1.34 ng/mL (<0.50)
[2023-03-22] MEDS: SODIUM CHLORIDE 0.9 % (FLUSH) 10 ML SYRINGE 5 ML IVF ×2 (10:02→21:48)
--- NOTE | 2023-03-22 10:08 | CRLHL7_ITS ---
For Patients: As a result of the Century Cures Act, medical imaging exams and procedure reports are released immediately into your electronic medical record. You may view this report before your referring provider. If you have questions, please contact your health care provider. INDICATION: Altered mental status. TECHNIQUE: CT head without contrast. COMPARISON: January 26, 2023. FINDINGS: CSF spaces: Mild diffuse parenchymal volume loss. Brain parenchyma and extra-axial spaces: Moderate chronic white matter ischemic disease. The jaramillo-white differentiation is normal. No sign of mass, hemorrhage, or midline shift. No extra-axial fluid collection. Skull base and calvarium: The visualized paranasal sinuses and mastoid air cells demonstrate no acute or significant findings. The visualized orbits are grossly unremarkable. No skull fractures. IMPRESSION: No acute intracranial abnormality on this noncontrast CT scan. Mild diffuse parenchymal volume loss and moderate chronic white matter ischemic disease. Please note that all CT scans at this facility use dose modulation, iterative reconstruction, and/or weight-based dosing when appropriate to reduce radiation dose to as low as reasonably achievable. Dictated by Jac Mullen MD @ 03/22/2023 12:03:28 PM (Electronically Signed)
--- NOTE | 2023-03-22 10:09 | CRLHL7_ITS ---
For Patients: As a result of the Century Cures Act, medical imaging exams and procedure reports are released immediately into your electronic medical record. You may view this report before your referring provider. If you have questions, please contact your health care provider. INDICATION: Hypoxia. TECHNIQUE: Chest 1 views. COMPARISON: January 13, 2023. FINDINGS: Cardiovascular and mediastinum: Stable heart size and vasculature. Right chest wall port with catheter tip in the superior cavoatrial junction. Lungs and pleural spaces: Left basilar atelectasis. No sign of infiltrate or mass. No sign of pleural effusion. No pneumothorax. Bones and soft tissues: No significant findings. IMPRESSION: Left basilar atelectasis. No acute findings and no significant changes from the prior exam. Dictated by Jac Mullen MD @ 03/22/2023 12:04:55 PM (Electronically Signed)
--- NOTE | 2023-03-22 10:30 | P.IMPN_ITS ---
Progress Note: A&P Assessment and plan (1) Acute hypoxemic respiratory failure: Problem details: Acute on chronic Status: Acute (2) Metabolic encephalopathy: Status: Acute (3) Chronic insomnia: Status: Chronic (4) Aspiration pneumonia: Status: Acute (5) Essential hypertension: Problem details: Dxed 2005. 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 Not in remission. Pending ongoing therapy through [facility] soon. Needs clinical improvement before she can proceed with more treatment of her myeloma. 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 Status: Chronic (9) History of pulmonary embolism: Problem details: around 2015, on xarelto (had DVT in past felt to be related to tamoxifen use) Status: Chronic (10) Peripheral neuropathy: Problem details: on Cymbelta in past, now on Lyrica, due to Tx from myeloma Status: Chronic (11) Hypothyroidism: Problem details: on replacement in past Status: Chronic (12) Dementia: Problem details: At [address] [place] [address], SLUMS score 17/30 and dementia was diagnosed Status: Chronic (13) Frailty syndrome in geriatric patient: Status: Acute Plan for 03/22/23 1) Acute hypoxic Respiratory Failure secondary to Aspiration pneumonia; will obt ain VBG to assess for hypercapnia 2) Worsening Metabolic Encephalopathy 3) Goals of care; lengthy discussion with , he confirmed full code status, I think he has limited insight into situation; patient with many chronic medical comorbities; and now with resp failure; hopefully patient will respond to treatment below. Overall prognosis in my opinion is guarded/poor Plan -transfer to CCU for closer monitoring -dc coreg -hold all sedating medications -stat CT Head -stat CXR -unable to obtain CT PE study given renal function; patient not tachycardic but on coreg; on Xarelto for Hx of PE/DVT -stat CMP, Lactate, VBG, UA, procal; sputum cx, BNP -continue unasyn, add vanco pharm to dose for now -venous doppler US LEs -Echo to assess for pulm htn -bolus (last MAP 65) -BIPAP prn -may consider trial of narcan if not improving; although has not had any narcotics; pupils pinpoint Code-Full DVT ppx-Xarelt Subjective Date Seen: 03/22/23 Interval history: Nursing notes reviewed; overnight patient with worsening altered mental status and tenous resp status This morning patient somnolent and lethargic; minimally responsive at bedside discussed severity of patient's status especially concern for resp status Exam Narrative: Exam Narrative: Gen: somnolent; le thargic HEENT: Nca t; pinpoint pupils CV: RRR normal s1 s2 Lungs: diminis hed breath sounds Abd: Soft,nt, nd N euro: somnolent, l ethargic; arousabl e to sternal rub M SK: age appropriat e muscle mass Const: Vital Signs, click to edit/add: Vital Signs - 24 hr 03/21/23 13:54 03/21/23 15:02 03/21/23 15:02 Temperature 97.1 F L Pulse Rate Pulse Rate [Left] 76 Pulse Rate [Right] Respiratory Rate 18 Blood Pressure Blood Pressure [Le ft Arm] Blood Pressure [Ri ght Forearm] Blood Pressure [Ri ght Upper Arm] 128/80 Pulse Oximetry 88 100 100 Oxygen Delivery Me thod Room Air Nasal Cannula Oxygen Flow Rate 2 03/21/23 16:25 03/21/23 16:28 03/21/23 16:29 Temperature 97.3 F L Pulse Rate 86 87 Pulse Rate [Left] 94 Pulse Rate [Right] Respiratory Rate 20 Blood Pressure 141/123 H Blood Pressure [Le ft Arm] Blood Pressure [Ri ght Forearm] Blood Pressure [Ri ght Upper Arm] 143/127 H Pulse Oximetry 96 94 94 Oxygen Delivery Me thod Nasal Cannula Nasal Cannula Nasal Cannula Oxygen Flow Rate 1 1 1 03/21/23 16:30 03/21/23 16:33 03/21/23 16:38 Temperature Pulse Rate 87 88 Pulse Rate [Left] Pulse Rate [Right] Respiratory Rate Blood Pressure 143/127 H Blood Pressure [Le ft Arm] Blood Pressure [Ri ght Forearm] 146/89 H Blood Pressure [Ri ght Upper Arm] Pulse Oximetry 95 92 Oxygen Delivery Me thod Nasal Cannula Nasal Cannula Oxygen Flow Rate 1 1 03/21/23 16:38 03/21/23 16:39 03/21/23 17:00 Temperature Pulse Rate 91 88 89 Pulse Rate [Left] Pulse Rate [Right] Respiratory Rate Blood Pressure 146/89 H Blood Pressure [Le ft Arm] Blood Pressure [Ri ght Forearm] Blood Pressure [Ri ght Upper Arm] Pulse Oximetry 91 93 92 Oxygen Delivery Me thod Nasal Cannula Nasal Cannula Nasal Cannula Oxygen Flow Rate 1 1 1 03/21/23 17:03 03/21/23 17:04 03/21/23 17:30 Temperature Pulse Rate 89 87 86 Pulse Rate [Left] Pulse Rate [Right] Respiratory Rate Blood Pressure 115/84 Blood Pressure [Le ft Arm] Blood Pressure [Ri ght Forearm] Blood Pressure [Ri ght Upper Arm] Pulse Oximetry 93 94 94 Oxygen Delivery Me thod Nasal Cannula Oxygen Flow Rate 1 03/21/23 17:31 03/21/23 18:26 03/21/23 18:26 Temperature 99.5 F 99.5 F Pulse Rate 84 Pulse Rate [Left] Pulse Rate [Right] Respiratory Rate 20 20 Blood Pressure 107/76 Blood Pressure [Le ft Arm] 144/88 H Blood Pressure [Ri ght Forearm] Blood Pressure [Ri ght Upper Arm] Pulse Oximetry 94 93 93 Oxygen Delivery Me thod Nasal Cannula Nasal Cannula Oxygen Flow Rate 2.5 2.5 03/21/23 18:26 03/21/23 19:00 03/21/23 20:37 Temperature 99.8 F H Pulse Rate Pulse Rate [Left] Pulse Rate [Right] Respiratory Rate 24 24 Blood Pressure Blood Pressure [Le ft Arm] 145/77 H Blood Pressure [Ri ght Forearm] Blood Pressure [Ri ght Upper Arm] Pulse Oximetry 93 92 93 Oxygen Delivery Me thod Nasal Cannula Nasal Cannula Oxygen Flow Rate 2.5 2.5 03/21/23 22:30 03/21/23 23:00 03/21/23 23:00 Temperature Pulse Rate Pulse Rate [Left] Pulse Rate [Right] Respiratory Rate 24 24 Blood Pressure Blood Pressure [Le ft Arm] 84/48 L Blood Pressure [Ri ght Forearm] Blood Pressure [Ri ght Upper Arm] Pulse Oximetry 93 Oxygen Delivery Me thod Nasal Cannula Oxygen Flow Rate 4 03/21/23 23:00 03/21/23 23:00 03/21/23 23:30 Temperature 100.1 F H Pulse Rate Pulse Rate [Left] Pulse Rate [Right] Respiratory Rate 24 Blood Pressure Blood Pressure [Le ft Arm] 109/57 L 82/41 L 82/41 L Blood Pressure [Ri ght Forearm] Blood Pressure [Ri ght Upper Arm] Pulse Oximetry 93 Oxygen Delivery Me thod Nasal Cannula Oxygen Flow Rate 4 03/21/23 23:56 03/22/23 00:00 03/22/23 00:30 Temperature Pulse Rate Pulse Rate [Left] Pulse Rate [Right] Respiratory Rate 24 Blood Pressure Blood Pressure [Le ft Arm] 96/48 L 82/37 L 86/43 L Blood Pressure [Ri ght Forearm] Blood Pressure [Ri ght Upper Arm] Pulse Oximetry 95 Oxygen Delivery Me thod Nasal Cannula Oxygen Flow Rate 4 03/22/23 01:00 03/22/23 01:30 03/22/23 02:00 Temperature Pulse Rate Pulse Rate [Left] Pulse Rate [Right] Respiratory Rate Blood Pressure Blood Pressure [Le ft Arm] 86/43 L 91/45 L 89/42 L Blood Pressure [Ri ght Forearm] Blood Pressure [Ri ght Upper Arm] Pulse Oximetry Oxygen Delivery Me thod Oxygen Flow Rate 03/22/23 02:30 03/22/23 03:00 03/22/23 03:00 Temperature 97.7 F Pulse Rate Pulse Rate [Left] Pulse Rate [Right] Respiratory Rate 18 Blood Pressure Blood Pressure [Le ft Arm] 83/44 L 87/46 L 91/47 L Blood Pressure [Ri ght Forearm] Blood Pressure [Ri ght Upper Arm] Pulse Oximetry 92 Oxygen Delivery Me thod OxyMask Oxygen Flow Rate 2 03/22/23 03:30 03/22/23 04:00 03/22/23 04:30 Temperature Pulse Rate Pulse Rate [Left] Pulse Rate [Right] Respiratory Rate Blood Pressure Blood Pressure [Le ft Arm] 86/46 L 83/47 L 92/47 L Blood Pressure [Ri ght Forearm] Blood Pressure [Ri ght Upper Arm] Pulse Oximetry Oxygen Delivery Me thod Oxygen Flow Rate 03/22/23 05:00 03/22/23 05:30 03/22/23 07:00 Temperature Pulse Rate Pulse Rate [Left] Pulse Rate [Right] Respiratory Rate Blood Pressure Blood Pressure [Le ft Arm] 88/46 L 89/46 L 91/51 L Blood Pressure [Ri ght Forearm] Blood Pressure [Ri ght Upper Arm] Pulse Oximetry Oxygen Delivery Me thod Oxygen Flow Rate 03/22/23 08:36 03/22/23 09:00 Temperature 97.2 F L 97.2 F L Pulse Rate Pulse Rate [Left] Pulse Rate [Right] 95 69 Respiratory Rate 20 20 Blood Pressure Blood Pressure [Le ft Arm] 110/55 L 113/53 L Blood Pressure [Ri ght Forearm] Blood Pressure [Ri ght Upper Arm] Pulse Oximetry 94 95 Oxygen Delivery Me thod OxyMask OxyMask Oxygen Flow Rate 1.5 1.5 Labs Labs: Laboratory Results - last 24 hr 03/21/23 03/21/23 03/21/23 14:22 14:42 14:55 WBC 3.28 L RBC 3.37 L Hgb 10.4 L Hct 32.9 L MCV 98 MCH 31 MCHC 32 RDW Coeff of Ambreen 18.6 H Plt Count 112 L Neut % (Auto) 55.5 Lymph % (Auto) 28.0 [place] % (Auto) 11.9 H Eos % (Auto) 4.3 Baso % (Auto) 0.3 Neut # (Auto) 1.80 Lymph # (Auto) 0.90 [place] # (Auto) 0.40 Eos # (Auto) 0.10 Baso # (Auto) 0.00 Abs Immat Gran (auto) 0.00 Imm/Tot Granulo (auto) 0.0 VBG pH 7.370 VBG pCO2 53 H VBG pO2 34.7 VBG HCO3 31 H Sodium 140 Potassium 3.9 Chloride 103 Carbon Dioxide 33 H BUN 26 Creatinine 1.1 Estimated Creat Clear 31.72 Estimated GFR 50 Glucose 81 Lactate 0.8 Calcium 9.7 Total Bilirubin 0.6 AST 27 ALT 18 Alkaline Phosphatase 51 C-Reactive Protein < 0.5 L NT-Pro-B Natriuret Pep 646 Total Protein 6.1 Albumin 3.9 Procalcitonin SARS-CoV-2 (PCR) Negative SARS-CoV-2 Influenza Type A (PCR) Negative PCR FLU A Influenza Type B (PCR) Negative PCR FLU B RSV (PCR) Negative PCR RSV POC Troponin I 0.02 03/21/23 03/22/23 22:40 05:37 WBC 5.53 RBC 3.19 L Hgb 10.3 L Hct 31.6 L MCV 99 MCH 32 MCHC 33 RDW Coeff of Ambreen 18.7 H Plt Count 93 L Neut % (Auto) 85.1 H Lymph % (Auto) 10.5 L [place] % (Auto) 4.0 Eos % (Auto) 0.0 Baso % (Auto) 0.2 Neut # (Auto) 4.70 Lymph # (Auto) 0.60 L [place] # (Auto) 0.20 Eos # (Auto) 0.00 Baso # (Auto) 0.01 Abs Immat Gran (auto) 0.01 Imm/Tot Granulo (auto) 0.2 VBG pH 7.408 VBG pCO2 46 VBG pO2 55.7 H VBG HCO3 29 H Sodium 142 Potassium 4.0 Chloride 105 Carbon Dioxide 31 BUN 27 Creatinine 1.4 Estimated Creat Clear 24.93 Estimated GFR 38 Glucose 174 H Lactate Calcium 8.8 Total Bilirubin AST ALT Alkaline Phosphatase C-Reactive Protein NT-Pro-B Natriuret Pep Total Protein Albumin Procalcitonin 1.34 H SARS-CoV-2 (PCR) Influenza Type A (PCR) Influenza Type B (PCR) RSV (PCR) POC Troponin I
[2023-03-22 10:33] LABS: HCO3 VBG 30 mmol/L (21-28); Lactate* 0.9 mmol/L (0.5-1.9); PCO2 VBG 54 mmHG (40-50); PO2 VBG 46.6 mmHG (25-47); pH VBG 7.352 (7.32-7.43)
[2023-03-22 10:47] LABS: Albumin* 3.5 g/dL (3.3-5.0); Chloride* 106 mmol/L (96-114); Sodium* 142 mmol/L (135-149)
[2023-03-22 10:50] LABS: Alanine Aminotransferase* 17 U/L (4-35); Alkaline Phosphatase* 41 U/L (40-150); Aspartate Amino Transferase* 26 U/L (12-35); Bilirubin Total* 0.5 mg/dL (0.1-1.5); Blood Urea Nitrogen* 28 mg/dL (7-30); Calcium* 8.8 mg/dL (8.4-10.6); Carbon Dioxide* 31 mmol/L (20-32); Creatinine* 1.3 mg/dL (0.5-1.5); Est. Creatinine Clearance* 26.84; Estimated Glomerular Filt Rate 41 ml/min; Glucose* 174 mg/dL (60-115); Total Protein* 5.7 g/dL (6.0-8.3)
[2023-03-22 10:56] LABS: Ammonia* < 9.0 umol/L (13.1-30.0)
[2023-03-22 11:00] LABS: NT Pro B Type NatriureticPept* 12700 pg/mL
[2023-03-22] MEDS: MAGNESIUM OXIDE 400 MG TABLET PO (11:47)
[2023-03-22] MEDS: 0.9 % SODIUM CHLORIDE 500 ML 500 ML IV (11:48)
[2023-03-22] MEDS: IPRAT-ALBUT 0.5-2.5 MG/3 ML NEB 1 NEB IH ×4 (11:51→21:49)
--- NOTE | 2023-03-22 11:55 | REH.PT ---
Attempted PT eval this morning. She had just transferred to CCU1 after sudden somnolent episode. I spoke with patient and her spouse. Pt exhausted and in/out of sleep. Not willing/ready to participate in PT eval this morning.
[2023-03-22 12:11] LABS: Appearance Urine Clear (Clear); Bilirubin Urine Negative (Negative); Blood Urine Negative (Negative); Color Urine Yellow (Yellow); Glucose Urine Negative (Negative); Ketones Urine Negative (Negative); Leukocyte Esterase Urine Negative (Negative); Nitrite Urine Negative (Negative); Protein Urine 1+ (Negative); Urobilinogen Urine 0.2 (0.2-1.0)
[2023-03-22 12:25] LABS: Bacteria Urine Few; RBC Urine 0-2 (0-2); WBC Urine 0-2 (0-5)
[2023-03-22] MEDS: 5 % DEXTROSE/0.9% SOD CHLORIDE 1,000 ML 75 ML IV (12:57)
--- NOTE | 2023-03-22 13:00 | CRLHL7_ITS ---
For Patients: As a result of the Cures Act, medical imaging exams and procedure reports are released immediately into your electronic medical record. You may view this report before your referring provider. If you have questions, please contact your health care provider. INDICATION: SOB, CHRONIC SWELLING COMPARISON: none TECHNIQUE: A compression venous ultrasound exam was performed of both lower extremities using jaramillo scale imaging, color Doppler and spectral Doppler analysis. FINDINGS: Sonographic imaging of the lower extremities demonstrates normal compressibility and color Doppler venous blood flow within the common femoral, deep femoral, and proximal greater saphenous veins. Within the thighs the femoral veins are patent and compressible. At a lower level the popliteal and posterior tibial veins also show normal compressibility and color Doppler venous blood flow. Peripheral hypoechoic clot formation noted within the common femoral veins bilaterally along with the proximal left femoral vein and right deep femoral vein. IMPRESSION: No acute DVT. 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 Dictated by Abdirizak Mayorga MD @ 03/22/2023 12:43:05 PM (Electronically Signed)
--- NOTE | 2023-03-22 13:25 | PC.SOCIAL ---
Confirmed pt. discharged from [facility] on 03/19 and was there under a Med A skilled stay for rehab, (01/26to 01/31) at [facility]. Pt. is under her 30- day window to return to a SNF under her Med A benefits. Spoke with [facility] and they have a potential shared room for a female available. No other beds are available in [place]. Pt.'s H and P and demographics was sent to [facility] as the physician felt pt. will need a rehab stay again. office services representative to follow-up on discharge planning.
[2023-03-22] MEDS: CYANOCOBALAMIN (VITAMIN B-12) 500 MCG TABLET PO (13:43)
--- NOTE | 2023-03-22 13:49 | PC.NURSE ---
Shift Note: Patient returned from radiology and was more awake and answering questions. Although confusion was noted as when asked where she is she said hospital. I asked where and her response was in [place]. Explained to her she is in [place] and her answer was close enough. Vitals have been stable since I took over. is at bedside she did have an ultrasound of her legs checking for a DVT and also an echo to check out her heart. O2 sat have been around 90-91 % when I ask her to take a deep breath she does increase to 94-96%. She is currently sitting straight up in bed and is enjoying her scramble eggs and toast with some apple juice. Will give giving report to her prior nurse as she is no longer a critical care patient.
--- NOTE | 2023-03-22 15:18 | PC.SOCIAL ---
[facility] will not have a bed for pt. They only have a shared room and spouse wants a private room. Also their was past stay issues at [facility].
--- NOTE | 2023-03-22 18:07 | PC.NURSE ---
[id number]: Patient started off day this am AAOx3, responsive and awake. At around 1000 patient became lethargic, unresponsive to sternal rub and pinpoint pupils that were reactive. Provider came to bedside and ordered several tests and labs. Patient was transferred to CCU status. Patient was later transferred back to [facility] status after she awakened again and was AAOx3. To note patient did wake up and scream ow my hair while transferring her to stretcher to go get CT scan. She also yelled her husbands name although she had not been awake since he came to visit her in the visit, but had been in room talking. Patient did not recall events from earlier today. Patient became vitally stable. Patient on RA. Patient has no complains of pain. Patient incontinent of bowel and bladder at baseline. Patient labs revealed were unremarkable. Patient continues with coarse crackles. Patient encouraged to perform Aerobika and IS. Patient with good appetite and ate lunch and dinner. Patient transfers with x2 assist to wheelchair. Patient right leg immobile d/t post polio. Patient easily tired after therapy services today. Patient takes pills whole in pudding.
[2023-03-22] MEDS: RIVAROXABAN 10 MG TABLET 20 MG PO (18:22)
[2023-03-22] MEDS: MIRTAZAPINE 15 MG TABLET 7.5 MG PO (21:49)
--- NOTE | 2023-03-22 22:09 | PC.NURSE ---
End of shift nursing note, care provided from [id number]: Pt alert and oriented x2, unaware of correct year, reoriented, reinforcement needed. Pt pleasant. Pt removed her IV this evening, pt states she doesn't know how but it was sitting on bedside table, catheter intact. Digital Printer Operator replaced IV to R wrist, patent, flushed and saline locked, protective sleeve placed over site. Vitals stable, BP continues to be on softer side, 113/50, pt asymptomatic, denies pain, denies dizziness. Pt incontinent of bowel and bladder this shift, but did notify staff that she believes she needed to be changed so had sensation, brief changed, celia cares completed, cream placed to buttocks. Pt tolerating PO intake. Continues on IV abx, solumedrol and sched nebs, con't on RA. Repo in bed w/ Ax1-2. Bed alarm on and call light within reach.
[2023-03-23 05:00] VITALS: BP 133/56; PULSE 62; RESP 16; TEMP 36.6; O2SAT 92
[2023-03-23] MEDS: METHYLPREDNISOLONE SOD SUCC 62.5 MG/ML (125) 60 MG IVP (05:00)
--- NOTE | 2023-03-23 06:13 | PC.NURSE ---
Shift note: The pt has been pleasant and cooperative. The pt has been alert and oriented to self, place and occasional to time; she appeared very forgetful. 2L of oxygen via NC with Spo2 in the 90s, the pt has been taking the oxygen tube off intermittently. . Very minimal cough noted. The pt has been denied chest pain and other distress. Redness noted buttock; the pt has bee turned and repositioned. Incontinent of urine and bowel noted this shift. The pt appeared without any any acute distress throughout the shift.
[2023-03-23 07:00] VITALS: BP 149/72; PULSE 66; RESP 16; TEMP 36.6; O2SAT 95
[2023-03-23] MEDS: IPRAT-ALBUT 0.5-2.5 MG/3 ML NEB 1 NEB IH (08:39)
[2023-03-23] MEDS: CYANOCOBALAMIN (VITAMIN B-12) 500 MCG TABLET PO (08:39)
[2023-03-23] MEDS: MAGNESIUM OXIDE 400 MG TABLET PO (08:39)
[2023-03-23] MEDS: PREGABALIN 75 MG CAPSULE PO (08:42)
--- NOTE | 2023-03-23 10:45 | PC.SOCIAL ---
Discharge planning: Met with pt and in room. Plan is for pt to reuturn home at discharge today. Pt is on service for PT/OT with [facility] and requested any needed information be provided to them to resume home care services at discharge. Called [facility] [phone] and received call back from Marilyn confirming pt is on service for PT/OT and requesting a resumption of home care PT/OT order, H&P and med list be faxed to [facility] at discharge to [phone]. Marilyn confirmed that a new face to face form is not needed to resume home care already being provided. exhaust worker to follow up as needed.
--- NOTE | 2023-03-23 10:55 | PM.DS1 ---
DS: Providers Provider Date Seen: 03/23/23 Date of admission: 03/21/23 20:53 Primary care physician: Marylou Roberts MD Admitting Clinician: Terra Hernandez MD Attending Physician on discharge: Terra Hernandez MD Date of Discharge: 03/23/23 DS: Diagnosis Discharge Diagnosis (1) Aspiration pneumonia: Status: Acute Problem details: Likely a recurrent problem. In January and today she had swallowing evaluations when her mental status was normal and these evaluations were normal. When she is obtunded she may not be protecting her airway leading to aspiration (2) Acute hypoxemic respiratory failure: Status: Acute Problem details: Acute on chronic. Not hypoxic on discharge. Acute hypoxia due to pneumonia. Chronic respiratory problems possibly due to a combination of factors including possible underlying lung disease, hypoventilation due to [employer] EXECUTIVE disease and post-polio (3) Metabolic encephalopathy: Status: Acute Problem details: Obtunded on arrival. Back to baseline mental status on discharge (4) Chronic insomnia: Status: Chronic Problem details: Recently has had more problems being sleepy. Will stop mirtazapine to see if this makes a difference. (5) Essential hypertension: Status: Chronic Problem details: Dxed 2005. No longer on treatment (6) Common variable hypogammaglobulinemia: Status: Chronic Problem details: due to multiple myeloma (7) Multiple myeloma: Status: Chronic Problem details: Dxed 07/2010, s/p autologous stem cell transplant 02/2011, chemotherapy started at [place] 2012. Not in remission. Pending ongoing therapy through [facility] soon. Needs clinical improvement before she can proceed with more treatment of her myeloma. 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 Wheel-chair bound (9) History of pulmonary embolism: Status: Chronic Problem details: around 2015, on xarelto (had DVT in past felt to be related to tamoxifen use) (10) Peripheral neuropathy: Status: Chronic Problem details: on Cymbelta in past, now on Lyrica, due to Tx from myeloma (11) Hypothyroidism: Status: Chronic Problem details: on replacement in past (12) Dementia: Status: Chronic Problem details: At 3 [facility], SLUMS score 17/30 and dementia was diagnosed (13) Frailty syndrome in geriatric patient: Status: Acute DS: Summary Hospital Course Hospital Course: 82-year-old female admitted to the hospital obtunded with hypoxia and hypotension. Initial evaluation included chest CT showing basilar infiltrate. Clinically suspected to be aspiration. Treated with Unasyn. Initially on arousable. Patient's mental status returned to normal over the 1st day in the hospital. Hypoxia and hypotension resolved. There remains some uncertainty about the initial course of events. This is similar to her hospitalization in January of this year when she was also obtunded and return to normal mental status. Uncertain whether her altered mental status comes 1st and then she aspirates or whether she aspirates and gets pneumonia and then has altered mental status. Status at Discharge Functional status at discharge: wheelchair bound Overall status at discharge: patient is back to baseline Time Spent with Patient Time attestation: Total time spent providing and/or coordinating discharge services: 45 minutes Time spent: Greater than 30 minutes Exam Narrative: Exam Narrative: She is alert appears in no distress. She is oriented to her circumstances. She is observed to eat breakfast without any difficulties. Breathing is unlabored. Respirations are clear to auscultation except for bibasilar crackles which may be chronic. She has no prolonged expiratory phase and no wheezing noted with fairly good air exchange in all lung martinez. Cardiovascular: S1, S2, regular rate and rhythm. Abdomen is soft without tenderness or mass. Right lower extremity with 2+ edema. Trace edema on the left. Const: Vital Signs, click to edit/add: Vital Signs - 24 hr 03/22/23 11:00 03/22/23 12:36 03/22/23 12:38 Temperature 96.6 F L Pulse Rate Pulse Rate [Right] 62 62 67 Respiratory Rate 16 18 Blood Pressure [Le ft Arm] 116/66 92/57 L Pulse Oximetry 93 90 Oxygen Delivery Me thod Room Air Room Air Oxygen Flow Rate 03/22/23 13:03 03/22/23 15:00 03/22/23 15:00 Temperature Pulse Rate 73 Pulse Rate [Right] 61 Respiratory Rate 18 Blood Pressure [Le ft Arm] 120/72 Pulse Oximetry 91 93 Oxygen Delivery Me thod Room Air Oxygen Flow Rate 03/22/23 15:00 03/22/23 15:00 03/22/23 15:00 Temperature 97.7 F Pulse Rate Pulse Rate [Right] 73 73 Respiratory Rate 18 18 18 Blood Pressure [Le ft Arm] 119/55 L Pulse Oximetry 93 93 Oxygen Delivery Me thod Room Air Room Air Oxygen Flow Rate 03/22/23 20:00 03/23/23 05:00 03/23/23 07:00 Temperature 98.0 F 97.8 F Pulse Rate Pulse Rate [Right] 83 62 Respiratory Rate 16 16 Blood Pressure [Le ft Arm] 133/50 L 133/56 L Pulse Oximetry 92 92 95 Oxygen Delivery Me thod Nasal Cannula Oxygen Flow Rate 2 03/23/23 07:00 03/23/23 07:00 03/23/23 07:00 Temperature 97.8 F Pulse Rate Pulse Rate [Right] 66 66 Respiratory Rate 16 16 16 Blood Pressure [Le ft Arm] 149/72 H Pulse Oximetry 95 95 Oxygen Delivery Me thod Room Air Room Air Oxygen Flow Rate Documenting provider has reviewed patient's vital signs: yes DS: Data Data Completed and Pending Completed studies during hospitalization: Procedure Labs on day of discharge: Labs from last 24 hours 03/22/23 03/22/23 03/22/23 13:44 10:22 10:09 Sodium 142 Potassium 4.0 Chloride 106 Carbon Dioxide 31 BUN 28 Creatinine 1.3 Estimated Creat Clear 26.84 Estimated GFR 41 Glucose 174 H Calcium 8.8 Total Bilirubin 0.5 AST 26 ALT 17 Alkaline Phosphatase 41 Ammonia < 9.0 L NT-Pro-B Natriuret Pep 72236 Total Protein 5.7 L Albumin 3.5 Urine Color Yellow Urine Appearance Clear Urine pH 5.0 Ur Specific [place] 1.020 Urine Protein 1+ A Urine Glucose (UA) Negative Urine Ketones Negative Urine Blood Negative Urine Nitrite Negative Urine Bilirubin Negative Urine Urobilinogen 0.2 Ur Leukocyte Esterase Negative Urine RBC 0-2 Urine WBC 0-2 Ur Squamous Epith Cells None Urine Bacteria Few A Lab Acknowledgement Test Added Preliminary micro results at discharge 03/22/23 Unknown Urine Culture - Preliminary Urine,Clean Catch No growth. 03/21/23 16:57 Blood Culture - Preliminary Blood NO GROWTH AFTER 24 HOURS 03/21/23 14:45 Blood Culture - Preliminary Blood NO GROWTH AFTER 24 HOURS Discharge Plan Discharge Disposition: Home w/ Parent or Adult Date of Admission: 03/21/23 20:53 Attending Provider on Discharge: David Staples Primary Care Provider: Marylou Roberts Anticipated Discharge Date/Time: 03/23/23 10:21 Discharge Medications: New amoxicillin-pot clavulanate 875-125 mg Tablet 1 tab PO BIDWM Qty: 10 0RF Continued melatonin 3 mg capsule 3 mg PO HS PRN magnesium oxide 400 mg magnesium capsule 400 mg PO DAILY calcium carbonate 500 mg calcium (1,250 mg) tablet 500 mg PO DAILY cyanocobalamin (vitamin B-12) 100 mcg tablet 100 mcg PO DAILY carvedilol 12.5 mg tablet 6.25 mg PO BID Rx Instructions: TAKE HALF TABLET BY MOUTH TWICE DAILY WITH A MEAL pregabalin 75 mg capsule 75 mg PO DAILY acetaminophen 325 mg tablet 650 mg PO QID PRNQty: 30 0RF Xarelto 20 mg tablet 20 mg PO QPM Rx Instructions: TAKE 1 TABLET BY MOUTH DAILY WITH EVENING MEAL Discontinued albuterol 90 mcg/actuation aerosol 2 spray inhalation Q4H PRN dexamethasone 4 mg tablet 20 mg PO .WEEKLY Hold Instructions: Resume on 02/28/23. mirtazapine 7.5 mg tablet 7.5 mg PO HS Discharge Orders: Discharge Order (Routine); Ordered 03/23/23 Ordered By: David Staples Patient Education: Amoxicillin/Clavulanate Potassium (By mouth), Aspiration Pneumonia (DC) Activity Level: Up with assist Discharge Diet: Regular Follow Up Appointments: Marylou Roberts MD [Primary Care Provider] - (1-2 weeks) Forms: [employer] Info Instructions
[2023-03-23 11:00] VITALS: BP 154/73; PULSE 64; RESP 16; TEMP 36.5; O2SAT 94
--- NOTE | 2023-03-23 13:11 | PC.NURSE ---
Patient vitally stable. PIV removed. AVS reviewed. All concerns addressed. Patient discharged to home.
== END 2023-03-23 13:11 | disposition home health service (06) | DRG 177 ==
LOC: ED 17:26 → MEDSURG 17:57
PROVIDERS: Hospitalist; Admitting Provider Family Medicine; Emergency Provider Family Medicine; PCP Internal Medicine; Visit Provider Family Medicine
DX: J69.0 Pneumonitis due to inhalation of food and vomit (principal); G93.41 Metabolic encephalopathy; J96.21 Acute and chronic respiratory failure with hypoxia; Z94.84 Stem cells transplant status; C90.00 Multiple myeloma not having achieved remission; D80.1 Nonfamilial hypogammaglobulinemia; I95.9 Hypotension, unspecified; G62.0 Drug-induced polyneuropathy; T45.1X5A Adverse effect of antineoplastic and immunosuppressive drugs, initial encounter; I27.20 Pulmonary hypertension, unspecified; Z79.01 Long term (current) use of anticoagulants; Z85.3 Personal history of malignant neoplasm of breast; Z86.718 Personal history of other venous thrombosis and embolism; F03.90 Unspecified dementia, unspecified severity, without behavioral disturbance, psychotic disturbance, mood disturbance, and anxiety; G14 Postpolio syndrome; F51.04 Psychophysiologic insomnia; E03.9 Hypothyroidism, unspecified; Z86.711 Personal history of pulmonary embolism
CPT/HCPCS: 36415; 70450; 71045; 71260; 80048; 80053; 81003; 81015; 82140; 82803; 82947; 83605; 83880; 84145; 84484; 85025; 86140; 87040; 87086; 87631; 92610; 93005; 93306; 93970; 94640; 94664; 94761; 97162; 97165; 97530; 97535; 99284; 99285; A9270; J0295; J1940; J2930; J3370; J7042; J7050; J7120; Q9967

== ENCOUNTER 2023-04-26 10:56 | Outpatient (CLI) | payer MEDICARE, OTHER, SELFPAY ==
--- NOTE | 2023-04-26 11:15 | CRLHL7_ITS ---
For Patients: As a result of the Century Cures Act, medical imaging exams and procedure reports are released immediately into your electronic medical record. You may view this report before your referring provider. If you have questions, please contact your health care provider. INDICATION: History are pneumonia TECHNIQUE: Modified barium swallow. Fluoroscopic time 2 minutes 9 seconds. FINDINGS/IMPRESSION: Normal epiglottis retroversion. No aspiration. Mild transient penetration. Decreased clearance from the left piriform sinus. No obstruction. Dictated by Abdirizak Mayorga MD @ 04/26/2023 2:22:33 PM (Electronically Signed)
--- NOTE | 2023-04-26 12:04 | SLP.EVAL ---
Dr. Roberts Please review, sign and return. Thank you Coby Polk, ASSISTANCE COORDINATOR ASSISTANCE COORDINATOR Katieal ASSISTANCE COORDINATOR Eval Start: 04/26/23 11:51 Freq: Status: Active Protocol: Document 04/26/23 11:51 Segundo (Rec: 04/26/23 12:04 [facility] [id number]) E-signed By Coby Polk, SEPIDEH, ASSISTANCE COORDINATOR ASSISTANCE COORDINATOR System Review History & Reason For Referral Type of Speech Evaluation Modified Barium Swallow Evaluation Rehabilitation Order Evaluation Date of Order 04/10/23 Reason for Referral recurrent pneumonia Treatment Diagnosis Dysphagia Vision Information Vision Status Patient is wearing glasses Patient Orientation Orientation & Mental Status cognitive deficits ASSISTANCE COORDINATOR Initial Assessment/POC Subjective Information Subjective/Pain Comment Patient brought to the xray suite via wheelchair. Her stayed in the waiting room. Caregiver's Name Markell - Assessment & Impression Assessment/Impression Patient is an 82 year old female referred for a modified barium swallow study due to two hospitalization with pneumonia. Her swallow was evaluated at bedside by this therapist and there was no indication of aspiration. ORAL MOTOR FUNCTION AND DENTITION Patient able to adequately move tongue and lips and has adequate natural dentition. THIN LIQUID Patient took sips of thin liquid by cup. She was able to initiate a swallow. There was adequate epiglottic deflection. There was a mild amount of residue in the pyriform sinus after swallow. No penetration or aspiration occurred. MILDLY THICK LIQUID Patient took a sip of mildly thick liquid. She was able to initiate a swallow. There was adequate epiglottic deflection . There was a mild amount of residue in the pyriform sinus after swallow. No penetration or aspiration occurred. PUREE Patient given a teaspoon of puree. She was able to manipulate and swallow without penetration or aspiration. She did have some pyriform residue that she was able to clear with a subsequent swallow. MUFFIN AND COOKIE WITH PUREE Patient given separate trials of muffin and cookie each mixed with barium puree. She was able to chew and swallow with no penetration or aspiration. There was slightly less residue in the pyriform sinuses with the food consistencies. AP VIEW Patient viewed in the AP position. This revealed that the residue was in the left pyriform. Turning head to the left did not eliminate the residue. IMPRESSIONS AND RECOMMENDATIONS Patient exhibits some residue in the left pyriform sinus which she is able to clear with subsequent swallows. No penetration or aspiration occurred on any consistency today. Tried turning head to the left but this did not eliminate the residue. Recommend patient take small bites and small sips and take time with eating. Swallowing twice with each bite and sip is helpful. Regular diet and thin liquid. The images were reviewed with the patient. The results were shared with her . Therapist Signature & License # I Certify That Therapy Services Provided Therapist Signature & License Number Coby Polk, [facility] COORDINATOR, # [id number] Physician Signature Signature of Physician Indicates Medically Needed Services Physician Signature & Date Required Please Sign/Date Here Speech/Language Pathology Billing Units Billing Units Eval Swallow Motion Fluoro 1
== END 2023-04-26 10:57 | disposition home or self-care (01) ==
LOC: RAD 10:57
PROVIDERS: PCP Internal Medicine; Visit Provider Internal Medicine
DX: R13.10 Dysphagia, unspecified (principal); Z87.01 Personal history of pneumonia (recurrent)
CPT/HCPCS: 74230; 92611

== ENCOUNTER 2023-05-24 18:00 | Outpatient (CLI) | payer MEDICARE, OTHER, SELFPAY | END 2023-05-24 18:01 | disposition home or self-care (01) | LOC: AMB 05-27 14:23 | PROVIDERS: PCP Internal Medicine; Visit Provider Family Medicine | DX: R07.89 Other chest pain (principal); U07.1 COVID-19 | CPT/HCPCS: A0425; A0427 ==

== ENCOUNTER 2023-05-24 18:13 | Inpatient (IN) | payer MEDICARE, OTHER, SELFPAY ==
[2023-05-24] VITALS (15 sets, daily range): BP systolic 148–182; BP diastolic 67–147; PULSE 70–101; RESP 18–22; TEMP 36.7–37.7; O2SAT 86–100; BMI 22.9; BMI 26.7
--- NOTE | 2023-05-24 18:47 | ED_ITS ---
HPI - General Adult General Chief complaint: Cough Stated complaint: Covid+ Time Seen by Provider: 05/24/23 18:46 History of Present Illness HPI narrative: CC: Cough, Body Aches pt. covid + on monday. cough worse today. denies fevers, n/v, diarrhea. feels weak. started paxlovid today 82-year-old woman presenting to the emergency department concern of cough and body aches. Diagnosed with COVID 2 days ago. No symptoms though until today. Cough is worse today. Feels weak. Has been taking Paxlovid as of today. No diarrhea. Has been struggling with some constipation and daughter think this might be related to medications through a trial for multiple myeloma that she is participating in at [place]. Does live independently with her but daughter has been staying to help out over the last couple of days because also has had COVID. Is too weak to manage now at home. Daughter reports a history of asthma . Has been more short of breath with cough. Daughter reports a history of pneumonia couple of times. Sounds as though does there is some degre e of dementia/poor recall and baseline. Ms. Medrano seems to think she has a nebulizer but daughter disagrees, maybe an inhaler is present. Daughter says she has not been eating nor keeping up with fluids either. Anticoagulated with Xarelto with history of pulmonary embolus. Related Data Home Medications Medication Instructions Recorded Confirmed calcium carbonate 500 mg calcium 500 mg PO DAILY 08/08/22 05/30/23 (1,250 mg) tablet cyanocobalamin (vitamin B-12) 100 100 mcg PO DAILY 08/08/22 05/30/23 mcg tablet magnesium oxide 400 mg PO DAILY 08/08/22 05/30/23 melatonin 3 mg capsule 3 mg PO HS PRN 08/08/22 05/30/23 carvedilol 12.5 mg tablet 6.25 mg PO BID 01/27/23 05/30/23 rivaroxaban 20 mg tablet (Xarelto) 20 mg PO QPM 03/21/23 05/30/23 pregabalin 75 mg capsule (Lyrica) 75 mg PO HS 05/25/23 05/30/23 Previous Rx's Medication Instructions Recorded acetaminophen 325 mg tablet 650 mg (2 x 325 mg) PO QID PRN #30 01/31/23 tabs acyclovir 200 mg capsule 400 mg (2 x 200 mg) PO BID #60 caps 05/27/23 Allergies Allergy/AdvReac Type Severity Reaction Status Date / Time No Known Allergies Allergy Unknown Verified 05/30/23 09:25 Review of Systems Status of ROS: Reports: 6 or more systems reviewed and unremarkable except as noted in History and below [facility] Medical History History of hypertension ?Z86.79 - Personal history of other diseases of the circulatory system (ICD- 10) History of pulmonary embolism ?Z86.711 - Personal history of pulmonary embolism (ICD-10) History of breast cancer ?Z85.3 - Personal history of malignant neoplasm of breast (ICD-10) Surgical History History of placement of ear tubes (10/22/12) ?Z96.22 - Myringotomy tube(s) status (ICD-10) History of autologous stem cell transplant (04/21/11) ?Z94.84 - Stem cells transplant status (ICD-10) Social History Narrative: She lives in [place] with her . They also have a home in [place] but have primarily been living here since [facility]. Home here is handicap assessable in the live on 1 level. They have a caregiver who comes to their home in the afternoon 3 days a week from 130-430 on Monday and . Remote history of minimal smoking. She drinks up to a half glass of wine a day since returning home from [facility]. What is your current living situation?: I presently have a place to live Problems where you live: other Problems where you live details: no In the past 12 months, utilities in danger of being shut off: no In past 12 months, lack of transportation kept you from medical appts, meetings, work, or getting things needed for daily living: no In the past 12 mos, have been you worried that your food would run out before you had money to buy more?: never true In the past 12 mos, the food you bought just didn't last and you didn't have money to buy more?: never true Highest level of school completed/degree received: Master's degree Smoking Status: Former smoker What tobacco products do you use: cigarettes Smoking quit date/years: >15 years ago Do you use any of these nicotine containing products: None How often do you have a drink containing alcohol: 2-3 times a week Alcohol type: wine How many standard drinks containing alcohol do you have on a typical day: 1 or 2 How often do you have six or more drinks on one occasion: Never AUDIT-C Alcohol total score: 3 Non-prescribed substance use: denies use Caffeine: Yes (coffee) How often does anyone, including family, friends and others, physically hurt you : unable to answer How often does anyone, including family, friends and others, insult or talk down to you: unable to answer How often does anyone, including family, friends and others, threaten you with harm: unable to answer How often does anyone, including family, friends and others, scream or curse at you: unable to answer Little interest or pleasure in doing things: not at all Feeling down, depressed, or hopeless: not at all service: No Exam Narrative: Exam Narrative: Is pleasant. With repeated prompting is able to awake otherwise just drifts off. Appears quite tired. Cranial nerves 2-12 to be intact. Oropharynx is sticky. She does have some congested upper airways transmitted into her lungs clearing a little bit in the bases with inspiratory efforts but bibasilar with crepitus. Some squeaks in the left upper lung. Air movement throughout. Heart is elevated rate in a regular rhythm. I note pulse ox when I am talking with her is 90-91% on room air. Abdomen is soft and nontender. Lower extremities l eft with trace edema the right with 1+ pitting edema some scarring along the medial tibia. Skin otherwise warm and dry. Some bruising consistent with anticoagulation I think at the left distal forearm/wrist. Const: Vital Signs, click to edit/add: Vital Signs - 24 hr 05/24/23 18:23 05/24/23 20:15 05/24/23 20:30 Temperature 98.0 F Pulse Rate 83 101 H Pulse Rate [Right Pulse Oximeter] 84 Respiratory Rate 18 Blood Pressure Blood Pressure [Ri ght Upper Arm] 171/92 H Pulse Oximetry 98 95 100 Oxygen Delivery Me thod Room Air Nasal Cannula Nasal Cannula Oxygen Flow Rate 1 1 05/24/23 20:32 05/24/23 20:45 05/24/23 21:00 Temperature Pulse Rate 96 93 83 Pulse Rate [Right Pulse Oximeter] Respiratory Rate Blood Pressure 182/82 H Blood Pressure [Ri ght Upper Arm] Pulse Oximetry 92 92 86 L Oxygen Delivery Me thod Room Air Room Air Room Air Oxygen Flow Rate 05/24/23 21:02 05/24/23 21:15 Temperature Pulse Rate 88 77 Pulse Rate [Right Pulse Oximeter] Respiratory Rate Blood Pressure 173/87 H Blood Pressure [Ri ght Upper Arm] Pulse Oximetry 97 96 Oxygen Delivery Me thod Nasal Cannula Nasal Cannula Oxygen Flow Rate 1 1 Documenting provider has reviewed patient's vital signs: yes Course Vital Signs Vital signs: Initial Vital Signs Temperature 98.0 F 05/24/23 18:23 Temperature Source Temporal Artery Scan 05/24/23 18:23 Pulse Rate 84 05/24/23 18:23 Respiratory Rate 18 05/24/23 18:23 Blood Pressure 171/92 H 05/24/23 18:23 Blood Pressure Mean 118 H 05/24/23 18:23 Blood Pressure Position Supine 05/24/23 18:23 Pulse Oximetry 98 05/24/23 18:23 Oxygen Delivery Method Room Air 05/24/23 18:23 Vital Signs Temperature 98.0 F 05/24/23 18:23 Pulse Rate 84 05/24/23 18:23 Respiratory Rate 18 05/24/23 18:23 Blood Pressure 171/92 H 05/24/23 18:23 Pulse Oximetry 98 05/24/23 18:23 Oxygen Delivery Method Room Air 05/24/23 18:23 Temperature 98.1 F 05/27/23 11:00 Pulse Rate 65 05/27/23 11:00 Respiratory Rate 20 05/27/23 11:00 Blood Pressure 171/70 H 05/27/23 11:00 Pulse Oximetry 97 05/27/23 11:00 Oxygen Delivery Method Room Air 05/27/23 11:00 Oxygen Flow Rate 1 05/26/23 15:00 Medical Decision Making MDM Narrative Medical decision making narrative: I think would benefit from hydration. Do not see documentation of heart failure but daughter thinks she may have some diagnosis of that. Might be diastolic. Sounds as though too weak to return home at this point otherwise borderline admission status for respiratory failure with what I observed on pulse oximetry on room air. I did turn up to 2 L at 1 point and jumped right up to 95%. Will look for pneumonia with her history as well. Further concern with multiple myeloma. Will give a DuoNeb in history of asthma per report. Oxygen saturations have stayed around 90%. Did give nebulization treatment. Did drop temporarily have gone as low though is 86%. Upper 80s on room air. Re sponds quickly to nasal cannula oxygen. Continues to have small congested cough. Chest x-ray reviewed by me looks similar to prior. I do not appreciate infiltrate consistent with bacterial infection Centrally looks little congested. Hemoglobin of 7.8. Was 10.3 2 months ago. Had received chemo trial in the setting multiple myeloma over the last 2 weeks. No other source of bleeding identified. Discussed with hospitalist for admission. Lab Data Lab results reviewed: Yes I reviewed the patient's lab results Labs: Lab Results 05/24/23 05/24/23 Range/Units 19:30 21:02 WBC 2.34 L (4.50-11.00) K/uL RBC 2.48 L (4.00-5.20) m/uL Hgb 7.8 L* (12.0-16.0) gm/dL Hct 25.2 L (33.0-51.0) % MCV 102 H (80-100) fL MCH 32 (26-34) pg MCHC 31 L (32-36) gm/dL RDW Coeff of Ambreen 18.4 H (11.5-15.5) % Plt Count 83 L (140-440) K/uL Neut % (Auto) 60.3 (42.0-72.0) % Lymph % (Auto) 14.5 L (20-44) % [place] % (Auto) 20.1 H (0.0-11.0) % Eos % (Auto) 3.4 (0.0-7.0) % Baso % (Auto) 1.3 (0.0-3.0) % Neut # (Auto) 1.40 L (1.7-7.0) K/uL Lymph # (Auto) 0.30 L (0.90-2.90) K/uL [place] # (Auto) 0.50 (0.00-0.90) K/UL Eos # (Auto) 0.10 (0.00-0.50) K/uL Baso # (Auto) 0.00 (0.00-0.30) K/uL Abs Immat Gran (auto) 0.00 (0.00-0.30) K/uL Imm/Tot Granulo (auto) 0.4 % VBG pH 7.395 (7.32-7.43) VBG pCO2 54 H (40-50) mmHG VBG pO2 52.5 H (25-47) mmHG VBG HCO3 33 H (21-28) mmol/L Sodium 140 (135-149) mmol/L Potassium 3.8 (3.6-5.1) mmol/L Chloride 104 (96-114) mmol/L Carbon Dioxide 33 H (20-32) mmol/L Anion Gap 3 L (7-15) mEq/L BUN 19 (7-30) mg/dL Creatinine 0.8 (0.5-1.5) mg/dL Estimated Creat Clear 34.90 Estimated GFR 74 ml/min Glucose 76 (60-115) mg/dL Lactate 0.6 (0.5-1.9) mmol/L Calcium 9.2 (8.4-10.6) mg/dL Total Bilirubin 0.8 (0.1-1.5) mg/dL Direct Bilirubin 0.0 (0.0-0.5) mg/dL AST 26 (12-35) U/L ALT 19 (4-35) U/L Alkaline Phosphatase 52 (40-150) U/L C-Reactive Protein 1.4 H (0.5-1.0) mg/dL NT-Pro-B Natriuret Pep 5070 pg/mL Total Protein 5.5 L (6.0-8.3) g/dL Albumin 3.5 (3.3-5.0) g/dL Lab Acknowledgement Test Added ECG Data Attestation: I personally reviewed and interpreted this ECG as follows: (Normal sinus. Rate of 75) Discharge Plan Discharge Clinical Impression: Respiratory failure, Multiple myeloma, COVID-19, Anemia, Weakness Patient Disposition: Admitted As Observation Condition: Stable Activity Level: Activity as Tolerated Discharge Diet: Regular
--- NOTE | 2023-05-24 19:07 | CRLHL7_ITS ---
For Patients: As a result of the Century Cures Act, medical imaging exams and procedure reports are released immediately into your electronic medical record. You may view this report before your referring provider. If you have questions, please contact your health care provider. INDICATION: Increasing dyspnea. TECHNIQUE: Chest 1 view. COMPARISON: None. FINDINGS: Cardiovascular and mediastinum: Heart size and vasculature are normal in caliber and appearance. Right-sided port catheter tip projects over the SVC. Lungs and pleural spaces: No focal consolidation. No large pleural effusion. No pneumothorax. Bones and soft tissues: Degenerative changes of the spine and shoulders. IMPRESSION: No focal consolidation. Dictated by Rosendo Foster MD @ 05/24/2023 9:36:49 PM (Electronically Signed)
[2023-05-24 19:50] LABS: HCO3 VBG 33 mmol/L (21-28); Lactate* 0.6 mmol/L (0.5-1.9); PCO2 VBG 54 mmHG (40-50); PO2 VBG 52.5 mmHG (25-47); pH VBG 7.395 (7.32-7.43)
[2023-05-24 19:55] LABS: Basophils Percent Auto 1.3 % (0.0-3.0); Eosinophils Percent Auto 3.4 % (0.0-7.0); Hematocrit 25.2 % (33.0-51.0); Immature Granulocytes Pct Auto 0.4 %; Lymphocytes Percent Auto 14.5 % (20-44); Mean Corpuscular HGB Conc 31 gm/dL (32-36); Mean Corpuscular Hemoglobin 32 pg (26-34); Mean Corpuscular Volume 102 fL (80-100); Monocytes Percent Auto 20.1 % (0.0-11.0); Neutrophils Percent Auto 60.3 % (42.0-72.0); Platelet Count* 83 K/uL (140-440); RDW Coefficient of Variation % 18.4 % (11.5-15.5); Red Blood Count 2.48 m/uL (4.00-5.20); White Blood Count* 2.34 K/uL (4.50-11.00)
[2023-05-24 19:57] LABS: Hemoglobin* 7.8 gm/dL (12.0-16.0); Slide Review Reflex No
[2023-05-24 20:05] LABS: Chloride* 104 mmol/L (96-114); Potassium* 3.8 mmol/L (3.6-5.1); Sodium* 140 mmol/L (135-149)
[2023-05-24] MEDS: 0.9 % SODIUM CHLORIDE 1000 ml 1,000 ML IV (20:05)
[2023-05-24 20:08] LABS: Creatinine* 0.8 mg/dL (0.5-1.5); Estimated Glomerular Filt Rate 74 ml/min
[2023-05-24 20:09] LABS: Anion Gap 3 mEq/L (7-15); Blood Urea Nitrogen* 19 mg/dL (7-30); Calcium* 9.2 mg/dL (8.4-10.6); Carbon Dioxide* 33 mmol/L (20-32); Glucose* 76 mg/dL (60-115)
[2023-05-24 20:12] LABS: C Reactive Protein* 1.4 mg/dL (0.5-1.0)
[2023-05-24 20:20] LABS: NT Pro B Type NatriureticPept* 5070 pg/mL
[2023-05-24] MEDS: IPRAT-ALBUT 0.5-2.5 MG/3 ML NEB 1 NEB IH (20:23)
[2023-05-24 21:12] LABS: Albumin* 3.5 g/dL (3.3-5.0)
[2023-05-24 21:15] LABS: Alanine Aminotransferase* 19 U/L (4-35); Alkaline Phosphatase* 52 U/L (40-150); Aspartate Amino Transferase* 26 U/L (12-35); Bilirubin Total* 0.8 mg/dL (0.1-1.5); Total Protein* 5.5 g/dL (6.0-8.3)
--- NOTE | 2023-05-24 23:33 | P.IMHP_ITS ---
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 Her recently tested positive for covid. She tested positive two days ago and was started on Paxlovid. She presented to ED and required 1 liter supplemental oxygen to keep O2 saturation of 98%, she was afebrile and hemodynamically stable. CXR with no acute findings. She was admitted due to hypoxia and weakness. She is currently sleeping; arousable but unable to provide additional hx. 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 They also have a home in [place] but have primarily been living here since COVID. Home here is handicap assessable in the live on 1 level. They have a caregiver who comes to their home in the afternoon 3 days a week from 130-430 on Monday and . Remote history of minimal smoking. She drinks up to a half glass of wine a day since returning home from [facility]. What is your current living situation?: I presently have a place to live Problems where you live: other Problems where you live details: no In the past 12 months, utilities in danger of being shut off: no In past 12 months, lack of transportation kept you from medical appts, meetings, work, or getting things needed for daily living: no In the past 12 mos, have been you worried that your food would run out before you had money to buy more?: never true In the past 12 mos, the food you bought just didn't last and you didn't have money to buy more?: never true Highest level of school completed/degree received: Master's degree Smoking Status: Former smoker What tobacco products do you use: cigarettes Smoking quit date/years: >15 years ago Do you use any of these nicotine containing products: None How often do you have a drink containing alcohol: 2-3 times a week Alcohol type: wine How many standard drinks containing alcohol do you have on a typical day: 1 or 2 How often do you have six or more drinks on one occasion: Never AUDIT-C Alcohol total score: 3 Non-prescribed substance use: denies use Caffeine: Yes (coffee) How often does anyone, including family, friends and others, physically hurt you : unable to answer How often does anyone, including family, friends and others, insult or talk down to you: unable to answer How often does anyone, including family, friends and others, threaten you with harm: unable to answer How often does anyone, including family, friends and others, scream or curse at you: unable to answer Little interest or pleasure in doing things: not at all Feeling down, depressed, or hopeless: not at all service: No Meds Home Medications and Allergies Home Medications Medication Instructions Recorded Confirmed Type calcium carbonate 500 mg calcium 500 mg PO DAILY 08/08/22 05/25/23 History (1,250 mg) tablet cyanocobalamin (vitamin B-12) 100 100 mcg PO DAILY 08/08/22 05/25/23 History mcg tablet magnesium oxide 400 mg PO DAILY 08/08/22 05/25/23 History melatonin 3 mg capsule 3 mg PO HS PRN 08/08/22 05/25/23 History carvedilol 12.5 mg tablet 6.25 mg PO BID 01/27/23 05/25/23 History rivaroxaban 20 mg tablet (Xarelto) 20 mg PO QPM 03/21/23 05/25/23 History pregabalin 75 mg capsule (Lyrica) 75 mg PO HS 05/25/23 05/25/23 History Allergies Allergy/AdvReac Type Severity Reaction Status Date / Time No Known Allergies Allergy Unknown Verified 05/24/23 18:25 Exam Narrative: Exam Narrative: Gen: no acute distress; sleeping HEENT: NCAT EOMI mmm Neck: Supple CV: RRR normal s1 s2 Lungs: CTAB Abd: Soft,nt, nd Neuro:sleeping; arousable; able to follow some commands MSK: age appropriate muscle mass Skin; Warm, dry no rash on face Const: Vital Signs, click to edit/add: Vital Signs - 24 hr 05/24/23 18:23 05/24/23 19:07 05/24/23 20:15 Temperature 98.0 F Pulse Rate 83 Pulse Rate [Right Pulse Oximeter] 84 Respiratory Rate 18 Blood Pressure Blood Pressure [Ri ght Upper Arm] 171/92 H Pulse Oximetry 98 96 95 Oxygen Delivery Me thod Room Air Nasal Cannula Oxygen Flow Rate 1 05/24/23 20:30 05/24/23 20:32 05/24/23 20:45 Temperature Pulse Rate 101 H 96 93 Pulse Rate [Right Pulse Oximeter] Respiratory Rate Blood Pressure 182/82 H Blood Pressure [Ri ght Upper Arm] Pulse Oximetry 100 92 92 Oxygen Delivery Me thod Nasal Cannula Room Air Room Air Oxygen Flow Rate 1 05/24/23 21:00 05/24/23 21:02 05/24/23 21:15 Temperature Pulse Rate 83 88 77 Pulse Rate [Right Pulse Oximeter] Respiratory Rate Blood Pressure 173/87 H Blood Pressure [Ri ght Upper Arm] Pulse Oximetry 86 L 97 96 Oxygen Delivery Me thod Room Air Nasal Cannula Nasal Cannula Oxygen Flow Rate 1 1 05/24/23 21:30 05/24/23 21:32 05/24/23 21:45 Temperature Pulse Rate 75 84 72 Pulse Rate [Right Pulse Oximeter] Respiratory Rate Blood Pressure 167/147 H Blood Pressure [Ri ght Upper Arm] Pulse Oximetry 97 98 96 Oxygen Delivery Me thod Nasal Cannula Nasal Cannula Nasal Cannula Oxygen Flow Rate 1 1 1 05/24/23 22:00 05/24/23 22:02 Temperature Pulse Rate 73 74 Pulse Rate [Right Pulse Oximeter] Respiratory Rate Blood Pressure 148/67 H Blood Pressure [Ri ght Upper Arm] Pulse Oximetry 96 97 Oxygen Delivery Me thod Nasal Cannula Nasal Cannula Oxygen Flow Rate 1 1 Hospitalist - H&P: Result Labs Labs: Short CBC 05/24/23 Range/Units 19:30 WBC 2.34 L (4.50-11.00) K/uL Hgb 7.8 L* (12.0-16.0) gm/dL Hct 25.2 L (33.0-51.0) % Plt Count 83 L (140-440) K/uL BMP 05/24/23 19:30 Sodium 140 Potassium 3.8 Chloride 104 Carbon Dioxide 33 H BUN 19 Creatinine 0.8 Glucose 76 Calcium 9.2 Liver Function 05/24/23 Range/Units 19:30 Total Bilirubin 0.8 (0.1-1.5) mg/dL Direct Bilirubin 0.0 (0.0-0.5) mg/dL AST 26 (12-35) U/L ALT 19 (4-35) U/L Alkaline Phosphatase 52 (40-150) U/L Albumin 3.5 (3.3-5.0) g/dL Assessment and Plan Assessment and plan (1) COVID-19: Status: Acute (2) Weakness: Status: Acute (3) Anemia: Status: Acute (4) Multiple myeloma: Status: Acute (5) History of aspiration pneumonia: Problem comment: 02/17 and 03/19 hospitalizations Status: Acute (6) Chronic insomnia: Problem comment: Mirtazapine stopped by hospitalist 03/19 due to daytime sleepiness Status: Acute (7) Hypothyroidism: Problem comment: on replacement in past Status: Acute (8) Peripheral neuropathy: Problem comment: on Cymbalta in past, now on Lyrica, due to Tx from myeloma Status: Acute (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 Her recently tested positive for covid. She tested positive two days ago and was started on Paxlovid. She presented to ED and required 1 liter supplemental oxygen to keep O2 saturation of 98%, she was afebrile and hemodynamically stable. CXR with no acute findings. She was admitted due to hypoxia and weakness. 1. COVID 19 with mild acute hypoxia requiring 1 liter supplemental oxygen 2. Anemia of chronic disease, hgb 7.8 previously 10.3 in February 3. Hx of MM 4. Hx of Dementia 5. elevated bnp, echo in february with normal EF 6. Hx of PE on xarelto Plan -admit to inpatient -decadron -remdesivir -PT evaluation -wean oxygen as tolerated -daily cbc, cmp, vbg in am -patient instructed to be off xarelto while on paxlovid by pharmacist and pcp; recieved paxlovid this morning; xarelto reordered for tomorrow Code status-full code verified with daughter DVT ppx on xarelto
[2023-05-25 01:25] VITALS: RESP 22; O2SAT 94
[2023-05-25] MEDS: PANTOPRAZOLE SODIUM 40 MG INJ IVP (02:08)
[2023-05-25] MEDS: dexAMETHasone 10 MG/ML inj 6 MG IVP (02:09)
[2023-05-25 03:00] VITALS: BP 160/76; PULSE 73; RESP 22; TEMP 36.8; O2SAT 95
[2023-05-25] MEDS: HEPARIN 500 UNIT/5 ML SYRINGE IVF ×2 (05:17→17:33)
[2023-05-25] MEDS: SODIUM CHLORIDE 0.9 % (FLUSH) 10 ML SYRINGE 5 ML IVF ×3 (05:17→21:17)
[2023-05-25 05:27] LABS: HCO3 VBG 31 mmol/L (21-28); PCO2 VBG 58 mmHG (40-50); PO2 VBG 62.7 mmHG (25-47); pH VBG 7.333 (7.32-7.43)
[2023-05-25 05:29] LABS: Basophils Percent Auto 1.6 % (0.0-3.0); Eosinophils Percent Auto 1.6 % (0.0-7.0); Hematocrit 24.5 % (33.0-51.0); Lymphocytes Percent Auto 17.8 % (20-44); Mean Corpuscular HGB Conc 31 gm/dL (32-36); Mean Corpuscular Hemoglobin 31 pg (26-34); Mean Corpuscular Volume 103 fL (80-100); Monocytes Percent Auto 9.3 % (0.0-11.0); Neutrophils Percent Auto 69.7 % (42.0-72.0); Platelet Count* 83 K/uL (140-440); RDW Coefficient of Variation % 18.4 % (11.5-15.5); Red Blood Count 2.39 m/uL (4.00-5.20)
[2023-05-25 05:30] LABS: Hemoglobin* 7.5 gm/dL (12.0-16.0); White Blood Count* 1.29 K/uL (4.50-11.00)
[2023-05-25 05:31] LABS: Slide Review Reflex Yes
--- NOTE | 2023-05-25 05:32 | PC.NURSE ---
Pt lethargic. Does open eyes to name but then falls back tto sleep. VSS she had a slight temp of 99.9 on admission to the med/surg unit. that has since reduced to 98. she is on 1L O2 to maintain her sats low to mid 90's. she is a T&R every 2 hrs. She is totally inc. LS are diminished in the bases.
[2023-05-25 05:47] LABS: Chloride* 106 mmol/L (96-114); Sodium* 142 mmol/L (135-149)
[2023-05-25 05:48] LABS: Potassium* 3.8 mmol/L (3.6-5.1)
[2023-05-25 05:50] LABS: Alanine Aminotransferase* 17 U/L (4-35); Alkaline Phosphatase* 44 U/L (40-150); Anion Gap 4 mEq/L (7-15); Aspartate Amino Transferase* 21 U/L (12-35); Bilirubin Total* 0.6 mg/dL (0.1-1.5); Blood Urea Nitrogen* 15 mg/dL (7-30); Calcium* 8.3 mg/dL (8.4-10.6); Carbon Dioxide* 32 mmol/L (20-32); Creatinine* 0.8 mg/dL (0.5-1.5); Est. Creatinine Clearance* 31.69; Estimated Glomerular Filt Rate 74 ml/min; Glucose* 80 mg/dL (60-115); Total Protein* 4.8 g/dL (6.0-8.3)
[2023-05-25 06:02] LABS: Slide Review Acceptable Review (Acceptable)
[2023-05-25 06:07] LABS: Procalcitonin* 0.07 ng/mL (<0.50)
[2023-05-25 07:00] VITALS: BP 145/75; PULSE 76; RESP 18; TEMP 36.6; O2SAT 93; O2SAT 94
[2023-05-25] MEDS: carvediloL 6.25 MG TABLET PO ×2 (09:35→21:13)
[2023-05-25 11:00] VITALS: BP 122/65; PULSE 70; RESP 20; TEMP 36.6; O2SAT 96
--- NOTE | 2023-05-25 12:15 | PM.IMPN1 ---
Progress Note: A&P Assessment and plan (1) COVID-19: Status: Acute (2) Weakness: Status: Acute (3) Anemia: Status: Acute (4) Multiple myeloma: Status: Acute (5) History of aspiration pneumonia: Problem details: 02/17 and 03/19 hospitalizations Status: Acute (6) Chronic insomnia: Problem details: Mirtazapine stopped by hospitalist 03/19 due to daytime sleepiness Status: Acute (7) Hypothyroidism: Problem details: on replacement in past Status: Acute (8) Peripheral neuropathy: Problem details: on Cymbalta in past, now on Lyrica, due to Tx from myeloma Status: Acute (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 Wheel-chair bound Status: Acute (10) Dementia: Problem details: At [address] [place] [address], SLUMS score 17/30 and dementia was diagnosed Status: Chronic (11) Chronic hypercapnic respiratory failure: Problem details: Room air venous blood gas 05/25/2023: PH 7.33, pCO2 of 58, PO2 63, bicarb 31 Status: Acute (12) Pancytopenia: Problem details: Has underlying multiple myeloma. COVID-19 can in and of itself cause anemia and neutropenia. Status: Acute Plan 1. Reviewed impression with patient. 2. I called and discussed the patient's situation with her , Markell, at [phone]. Answered his questions. He asked me to call his daughter. 3. I called and discussed the patient's situation with the patient's daughter, Wandy Bocanegra, at [phone]. Answered her questions. 4. Continue with current treatment efforts, including remdesivir and dexamethasone. 5. Continue to monitor oxygen needs, venous blood gas, and CBC. 6. Patient and family are agreeable to above stated plans and recommendations. Time Spent With Patient Total time spent: 40 minutes Subjective Time Seen by Provider: 11:00 Date Seen: 05/25/23 Interval history: Hospital day 2. 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 Her recently tested positive for covid. She tested positive two days ago and was started on Paxlovid. She presented to ED and required 1 liter supplemental oxygen to keep O2 saturation of 98%, she was afebrile and hemodynamically stable. CXR with no acute findings. She was admitted due to hypoxia and weakness. She is currently sleeping; arousable but unable to provide additional hx. No longer requiring oxygen supplementation with room air oxygen saturations at rest around 94%. Denies dyspnea at rest. Tolerated 1st dose of remdesivir. No longer taking Paxlovid. Appetite is fair. Able to engage in conversation, but with obvious cognitive deficit, sometimes same thing such as, I do not know,? ?I do not remember. ? Exam Narrative: Exam Narrative: Examined patient in her hospital room. Appears comfortable and in no acute distress. Vision and hearing are grossly normal. Alert and oriented to self, in part to place, not to time, not to situation. Does not recall that she has COVID-19. From the, articulate, cooperative. Mood and affect are congruent. Lungs clear to auscultation. Heart tones with regular rhythm. Apathy active bowel sounds, soft, nontender. Moves all 4 extremities. Able to eat and drink without any difficulties. Const: Vital Signs, click to edit/add: Vital Signs - 24 hr 05/24/23 18:23 05/24/23 19:07 05/24/23 20:15 Temperature 98.0 F Pulse Rate 83 Pulse Rate [Left R adial] Pulse Rate [Right Pulse Oximeter] 84 Respiratory Rate 18 Blood Pressure Blood Pressure [Le ft Arm] Blood Pressure [Ri ght Upper Arm] 171/92 H Pulse Oximetry 98 96 95 Oxygen Delivery Me thod Room Air Nasal Cannula Oxygen Flow Rate 1 05/24/23 20:30 05/24/23 20:32 05/24/23 20:45 Temperature Pulse Rate 101 H 96 93 Pulse Rate [Left R adial] Pulse Rate [Right Pulse Oximeter] Respiratory Rate Blood Pressure 182/82 H Blood Pressure [Le ft Arm] Blood Pressure [Ri ght Upper Arm] Pulse Oximetry 100 92 92 Oxygen Delivery Me thod Nasal Cannula Room Air Room Air Oxygen Flow Rate 1 05/24/23 21:00 05/24/23 21:02 05/24/23 21:15 Temperature Pulse Rate 83 88 77 Pulse Rate [Left R adial] Pulse Rate [Right Pulse Oximeter] Respiratory Rate Blood Pressure 173/87 H Blood Pressure [Le ft Arm] Blood Pressure [Ri ght Upper Arm] Pulse Oximetry 86 L 97 96 Oxygen Delivery Me thod Room Air Nasal Cannula Nasal Cannula Oxygen Flow Rate 1 1 05/24/23 21:30 05/24/23 21:32 05/24/23 21:45 Temperature Pulse Rate 75 84 72 Pulse Rate [Left R adial] Pulse Rate [Right Pulse Oximeter] Respiratory Rate Blood Pressure 167/147 H Blood Pressure [Le ft Arm] Blood Pressure [Ri ght Upper Arm] Pulse Oximetry 97 98 96 Oxygen Delivery Me thod Nasal Cannula Nasal Cannula Nasal Cannula Oxygen Flow Rate 1 1 1 05/24/23 22:00 05/24/23 22:02 05/24/23 23:30 Temperature 99.9 F H Pulse Rate 73 74 Pulse Rate [Left R adial] 70 Pulse Rate [Right Pulse Oximeter] Respiratory Rate 22 Blood Pressure 148/67 H Blood Pressure [Le ft Arm] 160/80 H Blood Pressure [Ri ght Upper Arm] Pulse Oximetry 96 97 97 Oxygen Delivery Me thod Nasal Cannula Nasal Cannula Nasal Cannula Oxygen Flow Rate 1 1 1 05/25/23 01:25 05/25/23 03:00 05/25/23 07:00 Temperature 98.2 F 97.9 F Pulse Rate Pulse Rate [Left R adial] 73 76 Pulse Rate [Right Pulse Oximeter] Respiratory Rate 22 22 18 Blood Pressure Blood Pressure [Le ft Arm] 160/76 H 145/75 H Blood Pressure [Ri ght Upper Arm] Pulse Oximetry 94 95 93 Oxygen Delivery Me thod Nasal Cannula Nasal Cannula Room Air Oxygen Flow Rate 1 1 05/25/23 07:00 05/25/23 07:00 Temperature Pulse Rate Pulse Rate [Left R adial] Pulse Rate [Right Pulse Oximeter] Respiratory Rate Blood Pressure Blood Pressure [Le ft Arm] Blood Pressure [Ri ght Upper Arm] Pulse Oximetry 94 94 Oxygen Delivery Me thod Room Air Oxygen Flow Rate Labs Labs: Laboratory Results - last 24 hr 05/24/23 05/24/23 05/25/23 19:30 21:02 05:20 WBC 2.34 L 1.29 L* RBC 2.48 L 2.39 L Hgb 7.8 L* 7.5 L* Hct 25.2 L 24.5 L MCV 102 H 103 H MCH 32 31 MCHC 31 L 31 L RDW Coeff of Ambreen 18.4 H 18.4 H Plt Count 83 L 83 L Neut % (Auto) 60.3 69.7 Lymph % (Auto) 14.5 L 17.8 L [place] % (Auto) 20.1 H 9.3 Eos % (Auto) 3.4 1.6 Baso % (Auto) 1.3 1.6 Neut # (Auto) 1.40 L 0.90 L Lymph # (Auto) 0.30 L 0.20 L [place] # (Auto) 0.50 0.10 Eos # (Auto) 0.10 0.00 Baso # (Auto) 0.00 0.00 Abs Immat Gran (auto) 0.00 0.00 Imm/Tot Granulo (auto) 0.4 0.0 Diff Slide Review Acceptable Review VBG pH 7.395 7.333 VBG pCO2 54 H 58 H VBG pO2 52.5 H 62.7 H VBG HCO3 33 H 31 H Sodium 140 142 Potassium 3.8 3.8 Chloride 104 106 Carbon Dioxide 33 H 32 Anion Gap 3 L 4 L BUN 19 15 Creatinine 0.8 0.8 Estimated Creat Clear 34.90 31.69 Estimated GFR 74 74 Glucose 76 80 Lactate 0.6 Calcium 9.2 8.3 L Total Bilirubin 0.8 0.6 Direct Bilirubin 0.0 AST 26 21 ALT 19 17 Alkaline Phosphatase 52 44 C-Reactive Protein 1.4 H NT-Pro-B Natriuret Pep 5070 Total Protein 5.5 L 4.8 L Albumin 3.5 3.0 L Procalcitonin 0.07 Lab Acknowledgement Test Added
[2023-05-25 15:00] VITALS: BP 121/70; PULSE 77; RESP 24; TEMP 36.8; O2SAT 94
--- NOTE | 2023-05-25 16:37 | PC.NURSE ---
Spoke with pt's daughter about DC. Daughter states she was caring for mom at home and is willing to do so at DC when medically cleared.
[2023-05-25] MEDS: RIVAROXABAN 10 MG TABLET 20 MG PO (17:33)
[2023-05-25 19:00] VITALS: BP 141/74; PULSE 86; RESP 20; TEMP 36.8; O2SAT 96
[2023-05-25] MEDS: PREGABALIN 75 MG CAPSULE PO (21:14)
--- NOTE | 2023-05-25 23:40 | PC.NURSE ---
Patient pleasant and cooperative. Patient is verbalizing ?fear of staff? in PPE and has been easily reoriented to place and situation and friendly with staff. Patient made comments believing staff was going to wear PPE to upcoming wedding. VS WNL, afebrile, tolerating room air without difficulty. Good appetite, tolerating diet well. Patient able to eat 75% of meal tray independently with minimal set up. Port patent and intact, used to infuse medication per MAR. Daughter at bedside this shift.?
[2023-05-26] VITALS (8 sets, daily range): BP systolic 137–181; BP diastolic 63–85; PULSE 63–86; RESP 16–22; TEMP 36.5–37; O2SAT 94–99
[2023-05-26] MEDS: PANTOPRAZOLE SODIUM 40 MG INJ IVP ×2 (00:35→23:47)
[2023-05-26] MEDS: HEPARIN 500 UNIT/5 ML SYRINGE IVF ×4 (00:35→23:48)
[2023-05-26] MEDS: SODIUM CHLORIDE 0.9 % (FLUSH) 10 ML SYRINGE 5 ML IVF ×5 (00:36→21:42)
[2023-05-26 07:15] LABS: HCO3 VBG 30 mmol/L (21-28); Lactate* 0.7 mmol/L (0.5-1.9); PCO2 VBG 50 mmHG (40-50); PO2 VBG 53.4 mmHG (25-47); pH VBG 7.388 (7.32-7.43)
[2023-05-26 07:18] LABS: Basophils Percent Auto 0.9 % (0.0-3.0); Immature Granulocytes Pct Auto 0.9 %; Lymphocytes Percent Auto 29.2 % (20-44); Mean Corpuscular HGB Conc 32 gm/dL (32-36); Mean Corpuscular Hemoglobin 32 pg (26-34); Mean Corpuscular Volume 101 fL (80-100); Monocytes Percent Auto 14.2 % (0.0-11.0); Neutrophils Percent Auto 54.8 % (42.0-72.0); Platelet Count* 104 K/uL (140-440); RDW Coefficient of Variation % 17.8 % (11.5-15.5); Red Blood Count 2.28 m/uL (4.00-5.20)
[2023-05-26 07:23] LABS: Hemoglobin* 7.3 gm/dL (12.0-16.0); Slide Review Reflex Yes; White Blood Count* 1.06 K/uL (4.50-11.00)
[2023-05-26 07:32] LABS: Chloride* 108 mmol/L (96-114); Potassium* 3.9 mmol/L (3.6-5.1); Sodium* 142 mmol/L (135-149)
[2023-05-26 07:35] LABS: Creatinine* 0.8 mg/dL (0.5-1.5); Est. Creatinine Clearance* 31.69; Estimated Glomerular Filt Rate 74 ml/min
[2023-05-26 07:36] LABS: Anion Gap 4 mEq/L (7-15); Blood Urea Nitrogen* 31 mg/dL (7-30); Calcium* 7.9 mg/dL (8.4-10.6); Carbon Dioxide* 30 mmol/L (20-32); Glucose* 111 mg/dL (60-115); Magnesium* 1.9 mg/dL (1.5-2.6); Phosphorus* 3.6 mg/dL (2.5-4.5)
[2023-05-26 07:38] LABS: C Reactive Protein* 2.2 mg/dL (0.5-1.0)
[2023-05-26 07:46] LABS: NT Pro B Type NatriureticPept* 5560 pg/mL
[2023-05-26 07:52] LABS: Procalcitonin* 0.05 ng/mL (<0.50)
--- NOTE | 2023-05-26 08:01 | PC.NURSE ---
Shift note [id number]: Pt is oriented to self only. Pt denies pain, SOB, Chest pain, and N/V. Pt is on room air, turned and repositioned, and tolerating a regular diet. Pt had 1 moderately soaked brief overnight, and had a small formed bowel movement. Pt slept intermittently throughout night. Night uneventful.
[2023-05-26 08:56] LABS: Slide Review Acceptable Review (Acceptable)
[2023-05-26] MEDS: carvediloL 6.25 MG TABLET PO ×2 (09:17→21:41)
--- NOTE | 2023-05-26 14:17 | PC.NURSE ---
Shift note: Pt is oriented to self only. Pt denies pain, SOB, Chest pain, and N/V. Pt is on room air, turned and repositioned Q2-3 hours, and tolerating a regular diet. Pt had 1 significantly soaked brief and slept intermittently throughout the shift. Patient's daughter called and RN gave a quick update, Md notified that would like to chat about POC.
--- NOTE | 2023-05-26 14:19 | P.IMPN_ITS ---
Progress Note: A&P Assessment and plan (1) COVID-19: Status: Acute (2) Weakness: Status: Acute (3) Anemia: Status: Acute (4) Multiple myeloma: Problem details: - 1st diagnosed with multiple myeloma in February of 2010. - Received multiple different chemotherapeutic and immunologic treatment regimens for this and has not been responsive over the years. - February of 2011, underwent an autologous stem cell transplant. - More recently, enrolled in a cevostamab multiple myeloma clinical trial. The last dose she received this trial medication was on 05/18/2023. 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 Wheel-chair bound Status: Acute (10) Dementia: Problem details: At [address] [place] [address], SLUMS score 17/30 and dementia was diagnosed Status: Chronic (11) Pancytopenia: Problem details: Has underlying multiple myeloma. COVID-19 can in and of itself cause anemia and neutropenia. Last dose of medication to treat multiple myeloma was on 05/18/2023. Status: Acute (12) Chronic hypercapnic respiratory failure: Problem details: Room air venous blood gas 05/25/2023: PH 7.33, pCO2 of 58, PO2 63, bicarb 31 Status: Acute (13) Common variable hypogammaglobulinemia: Problem details: due to multiple myeloma Status: Acute Plan 1. Reviewed impression with patient. 2. Called and discussed the patient's progress and condition with her , Markell, and her daughter, Wandy. I explained to them that the patient's clinical symptoms associated with COVID are improving, however her evolving pancytopenia continues to be concerning. For now we will continue to focus our efforts on treating the COVID with the remdesivir. May need to consider granulocyte stimulating factor administration, irradiated blood product transfusions, and more, if warranted. Consider discussion with her hematology group at [place], [place], if her condition does not stabilize or continues to progress. 3. Restarted her acyclovir 400 mg twice daily for prophylaxis. She was recently prescribed trimethoprim sulfamethoxazole single-strength 1 tab daily for prophylaxis, but given her evolving pancytopenia I will not continue with that at this time. She was additionally prescribed fluconazole 400 mg once daily for prophylaxis given her advanced hematologic malignancy. For now I am holding off on this as well. 4. Continue with other supportive efforts as specified. 5. Patient, , daughter are all agreeable with above stated plans and recommendations. Time Spent With Patient Total time spent: 50 minutes Subjective Time Seen by Provider: 10:00 Date Seen: 05/26/23 Interval history: Hospital day 3. 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 Her recently tested positive for covid. She tested positive two days ago and was started on Paxlovid. She presented to ED and required 1 liter supplemental oxygen to keep O2 saturation of 98%, she was afebrile and hemodynamically stable. CXR with no acute findings. She was admitted due to hypoxia and weakness. She is currently sleeping; arousable but unable to provide additional hx. I reviewed her most recent [facility] medical records from an office visit that she had on 05/22/2023 with the Division of Hematology, [place], [place]. She was 1st diagnosed with multiple myeloma in February of 2010. She has received multiple different chemotherapeutic and immunologic treatment regimens for this and has not been responsive over the years. Additionally in February of 2011 she underwent an autologous stem cell transplant. Again the multiple myeloma that she suffers from has been unresponsive to all intervention efforts over the years. More recently, she was enrolled in a cevostamab multiple myeloma clinical trial. The last dose she received this trial medication was on 05/18/2023. Reportedly the risk of this medication causing significant cytopenias is usually not expected. Nevertheless should patient require transfusions, her tube builder airplane recommend adherence to standard transfusion thresholds of a hemoglobin of less than 7 grams/deciliter or platelet count less than 10,000 and that blood be irradiated. Decision was made to stop the clinical trial at that time until it could be discerned if in fact she had COVID-19, given her high risk exposure to her who did have COVID-19. Her COVID-19 symptoms evolved such that she was admitted to our hospital on 05/24/2023. In terms of her weakness and cough and dyspnea these have all improved substantially. No longer requiring oxygen supplementation. Has received 2 doses of IV remdesivir since being in the hospital, and is seemingly tolerating this. Did receive a single dose of Paxolivd in the outpatient setting before she presented to the hospital with her symptoms. The Paxlovid has since been discontinued. Appetite is improving. Tolerating increased activities. Underlying dementia continues to be stable. Has had no blood loss in the hospital setting or previously that patient or family are aware of. Exam Narrative: Exam Narrative: Examined patient in her hospital room. Appears comfortable in no acute distress. When I 1st walk in the room she is sound asleep. She arouses easily to my calling out her name. Alert and oriented to self only, not to place, time, or situation. She is able to tell me her 's and her daughter's names. Does not remember that she is in the hospital or why she is in the hospital. This is not unusual for her. Remains afebrile. Moves all 4 extremities. Lungs are clear to auscultation. Heart tones with regular rhythm. Abdomen benign with active bowel sounds, soft. Extremities without edema. No petechiae, jaundice, icterus, or rash. Const: Vital Signs, click to edit/add: Vital Signs - 24 hr 05/25/23 15:00 05/25/23 15:00 05/25/23 15:00 Temperature 98.3 F Pulse Rate [Pulse Oximeter] 77 Respiratory Rate 24 24 Blood Pressure [Le ft Arm] 121/70 Pulse Oximetry 94 94 94 Oxygen Delivery Me thod Room Air Room Air Oxygen Flow Rate 05/25/23 15:00 05/25/23 19:00 05/26/23 00:30 Temperature 98.3 F Pulse Rate [Pulse Oximeter] 77 86 Respiratory Rate 24 20 Blood Pressure [Le ft Arm] 141/74 H Pulse Oximetry 96 98 Oxygen Delivery Me thod Room Air Oxygen Flow Rate 05/26/23 00:30 05/26/23 00:30 05/26/23 00:30 Temperature 97.7 F Pulse Rate [Pulse Oximeter] 65 65 Respiratory Rate 18 18 18 Blood Pressure [Le ft Arm] 142/68 H Pulse Oximetry 98 98 Oxygen Delivery Me thod Room Air Room Air Oxygen Flow Rate 05/26/23 04:35 05/26/23 07:00 05/26/23 07:00 Temperature 97.7 F Pulse Rate [Pulse Oximeter] 66 63 Respiratory Rate 16 16 Blood Pressure [Le ft Arm] 137/76 Pulse Oximetry 98 98 Oxygen Delivery Me thod Room Air Oxygen Flow Rate 05/26/23 07:00 05/26/23 07:00 05/26/23 10:17 Temperature 97.7 F 97.7 F Pulse Rate [Pulse Oximeter] 63 68 Respiratory Rate 16 16 16 Blood Pressure [Le ft Arm] 181/85 H 145/66 H Pulse Oximetry 99 99 99 Oxygen Delivery Me thod Room Air Room Air Room Air Oxygen Flow Rate 1 Documenting provider has reviewed patient's vital signs: yes Labs Labs: Laboratory Results - last 24 hr 05/26/23 07:10 WBC 1.06 L* RBC 2.28 L Hgb 7.3 L* Hct 23.0 L MCV 101 H MCH 32 MCHC 32 RDW Coeff of Ambreen 17.8 H Plt Count 104 L Neut % (Auto) 54.8 Lymph % (Auto) 29.2 [place] % (Auto) 14.2 H Eos % (Auto) 0.0 Baso % (Auto) 0.9 Neut # (Auto) 0.60 L Lymph # (Auto) 0.30 L [place] # (Auto) 0.20 Eos # (Auto) 0.00 Baso # (Auto) 0.00 Abs Immat Gran (auto) 0.00 Imm/Tot Granulo (auto) 0.9 Diff Slide Review Acceptable Review VBG pH 7.388 VBG pCO2 50 VBG pO2 53.4 H VBG HCO3 30 H Sodium 142 Potassium 3.9 Chloride 108 Carbon Dioxide 30 Anion Gap 4 L BUN 31 H Creatinine 0.8 Estimated Creat Clear 31.69 Estimated GFR 74 Glucose 111 Lactate 0.7 Calcium 7.9 L Phosphorus 3.6 Magnesium 1.9 C-Reactive Protein 2.2 H NT-Pro-B Natriuret Pep 5560 Procalcitonin 0.05
[2023-05-26] MEDS: RIVAROXABAN 10 MG TABLET 20 MG PO (18:21)
[2023-05-26] MEDS: PREGABALIN 75 MG CAPSULE PO (21:41)
[2023-05-26] MEDS: ACYCLOVIR 200 MG CAPSULE 400 MG PO (21:41)
--- NOTE | 2023-05-26 22:58 | PC.NURSE ---
Elevated BP, otherwise VSS. RA. Some slight pain in right hip- relieved w/ repositioning. A&Ox3, follows direction, but confused at times. ~0 procedure writer walked into patient's room to find port dressing taking off and port catheter loose. LS diminished. RLE foot drop with pulses diminished, edema, and warmth- per pt she contracted polio at age 13. Tolerating regular diet- ate 50% of dinner. Needs encouragement with drinking. 1 wet brief, no BM. Port accessed, heparin locked- @ ~0 procedure writer walked into pt's room to find port dressing off and catheter loose. Port deaccessed and reaccessed shortly after- dressing c/i, some bleeding noted after reaccessing. Given IV remdesivir. Repositioned q2h. Daughter, Wandy, visited this evening for dinner. Will continue to monitor, follow POC, keep pt and family updated. Frannie Zimmerman RN
[2023-05-27 00:37] VITALS: O2SAT 94
[2023-05-27 04:51] VITALS: BP 182/84; PULSE 64; RESP 20; TEMP 36.6; O2SAT 97
--- NOTE | 2023-05-27 05:35 | PC.NURSE ---
[id number]: Patient pleasant and cooperative. Dementia. Afebrile. Frequent T&R. Incontinent. Denies pain. Rested on and off during noc.
[2023-05-27] MEDS: HEPARIN 500 UNIT/5 ML SYRINGE IVF ×2 (06:45→11:40)
[2023-05-27 06:56] LABS: HCO3 VBG 29 mmol/L (21-28); PCO2 VBG 48 mmHG (40-50); PO2 VBG 51.9 mmHG (25-47); pH VBG 7.392 (7.32-7.43)
[2023-05-27 07:00] VITALS: BP 169/76; PULSE 80; RESP 18; TEMP 36.9; O2SAT 98
[2023-05-27 07:13] LABS: Chloride* 110 mmol/L (96-114); Potassium* 3.6 mmol/L (3.6-5.1); Sodium* 143 mmol/L (135-149)
[2023-05-27 07:16] LABS: Creatinine* 0.8 mg/dL (0.5-1.5); Est. Creatinine Clearance* 31.69; Estimated Glomerular Filt Rate 74 ml/min
[2023-05-27 07:17] LABS: Anion Gap 5 mEq/L (7-15); Blood Urea Nitrogen* 36 mg/dL (7-30); Calcium* 7.8 mg/dL (8.4-10.6); Carbon Dioxide* 28 mmol/L (20-32); Glucose* 86 mg/dL (60-115)
[2023-05-27 07:19] LABS: C Reactive Protein* 1.4 mg/dL (0.5-1.0)
[2023-05-27] MEDS: ACYCLOVIR 200 MG CAPSULE 400 MG PO (09:24)
[2023-05-27] MEDS: carvediloL 6.25 MG TABLET PO (09:24)
[2023-05-27 09:45] LABS: Immature Granulocytes Pct Auto 1.2 %; Lymphocytes Percent Auto 28.4 % (20-44); Mean Corpuscular HGB Conc 31 gm/dL (32-36); Mean Corpuscular Hemoglobin 32 pg (26-34); Mean Corpuscular Volume 101 fL (80-100); Monocytes Percent Auto 12.4 % (0.0-11.0); Platelet Count* 120 K/uL (140-440); RDW Coefficient of Variation % 17.8 % (11.5-15.5); Red Blood Count 2.37 m/uL (4.00-5.20)
[2023-05-27 10:04] LABS: Hemoglobin* 7.5 gm/dL (12.0-16.0); Slide Review Reflex Yes; White Blood Count* 1.69 K/uL (4.50-11.00)
[2023-05-27 10:15] LABS: Slide Review Acceptable Review (Acceptable)
[2023-05-27 11:00] VITALS: BP 171/70; PULSE 65; RESP 20; TEMP 36.7; O2SAT 97
[2023-05-27] MEDS: SODIUM CHLORIDE 0.9 % (FLUSH) 10 ML SYRINGE 5 ML IVF (11:40)
--- NOTE | 2023-05-27 13:19 | P.DS_ITS ---
DS: Providers Provider Date Seen: 05/27/23 Date of admission: 05/24/23 23:35 Primary care physician: Marylou Roberts MD Admitting Clinician: Anthony Ulloa MD Attending Physician on discharge: Markell Staples MD Date of Discharge: 05/27/23 DS: Diagnosis Discharge Diagnosis (1) COVID-19: Status: Acute Problem details: Diagnosed prior to admission. Start on Paxlovid. Treated with Remdesivir in the hospital. Briefly had hypoxic respiratory failure which has resolved. (2) Pancytopenia: Status: Acute Problem details: Has underlying multiple myeloma. On immune therapy for refractory multiple myeloma. This is likely the cause of her pancytopenia. COVID-19 can in and of itself cause anemia and neutropenia. Last dose of medication to treat multiple myeloma was on 05/18/2023. (3) Multiple myeloma: Status: Acute Problem details: - 1st diagnosed with multiple myeloma in February of 2010. - Received multiple different chemotherapeutic and immunologic treatment regimens for this and has not been responsive over the years. - February of 2011, underwent an autologous stem cell transplant. - More recently, enrolled in a cevostamab multiple myeloma clinical trial. The last dose she received this trial medication was on 05/18/2023. 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 Wheel-chair bound (7) Dementia: Status: Chronic Problem details: At [address] [place] [address], SLUMS score 17/30 and dementia was diagnosed (8) Frailty syndrome in geriatric patient: Status: Acute DS: Summary Hospital Course Hospital Course: Jennifer Medrano is a 82 year old female with past medical history noted below including dementia, polio syndrome (as a child), Multiple myeloma, hypothyroidism, peripheral neuropathy presenting to ED for evaluation of generalized weakness and COVID 19. Her recently tested positive for covid. She tested positive two days ago and was started on Paxlovid. She presented to ED and required 1 liter supplemental oxygen to keep O2 saturation of 98%, she was afebrile and hemodynamically stable. CXR with no acute findings. She was admitted due to hypoxia and weakness. She is currently sleeping; arousable but unable to provide additional hx. During hospital stay she was treated with Remdesivir. She had monitoring of her respiratory status which remain good. She was able to wean off of oxygen. She had no other severe COVID symptoms. She did develop progressive pancytopenia during hospital stay. This included the expected lymphopenia from COVID but also neutropenia thrombocytopenia and anemia. These blood cell abnormalities have stabilized and improved in the last day. These are thought more likely due to her myeloma and myeloma therapy rather than the COVID illness itself. Her absolute neutrophil count reached an 80 year of 600 (0.6) yesterday and has rebounded to 1000 (1.0) today. Status at Discharge Functional status at discharge: wheelchair bound Overall status at discharge: patient is progressing back to baseline Time Spent with Patient Time attestation: Total time spent providing and/or coordinating discharge services: Time spent: Greater than 30 minutes Exam Narrative: Exam Narrative: She is alert and appears in no distress. Due to dementia she is unable to give much details of recent events. She is pleasant and cooperative. Breathing is unlabored on room air. Respirations are clear to auscultation. Occasional basilar crackles noted. Cardiovascular: S1, S2 relatively regular. Abdomen is soft without tenderness or mass. Extremities without edema. No rash. Const: Vital Signs, click to edit/add: Vital Signs - 24 hr 05/26/23 15:00 05/26/23 15:00 05/26/23 15:00 Temperature 98.6 F Pulse Rate [Pulse Oximeter] 77 77 Respiratory Rate 16 16 Blood Pressure [Le ft Arm] 155/63 H Pulse Oximetry 98 98 Oxygen Delivery Me thod Room Air Oxygen Flow Rate 05/26/23 15:00 05/26/23 18:26 05/26/23 21:53 Temperature 98.6 F 98.0 F Pulse Rate [Pulse Oximeter] 82 86 Respiratory Rate 16 22 Blood Pressure [Le ft Arm] 145/67 H 161/81 H Pulse Oximetry 98 98 94 Oxygen Delivery Me thod Room Air Room Air Room Air Oxygen Flow Rate 1 05/26/23 23:00 05/27/23 00:37 05/27/23 04:51 Temperature 97.8 F Pulse Rate [Pulse Oximeter] 64 Respiratory Rate 22 20 Blood Pressure [Le ft Arm] 182/84 H Pulse Oximetry 94 94 97 Oxygen Delivery Me thod Room Air Room Air Oxygen Flow Rate 05/27/23 07:00 05/27/23 07:00 05/27/23 07:00 Temperature 98.5 F Pulse Rate [Pulse Oximeter] 80 Respiratory Rate 18 Blood Pressure [Le ft Arm] 169/76 H Pulse Oximetry 98 98 98 Oxygen Delivery Me thod Room Air Room Air Oxygen Flow Rate 05/27/23 07:00 05/27/23 11:00 Temperature 98.1 F Pulse Rate [Pulse Oximeter] 80 65 Respiratory Rate 18 20 Blood Pressure [Le ft Arm] 171/70 H Pulse Oximetry 97 Oxygen Delivery Me thod Room Air Oxygen Flow Rate Documenting provider has reviewed patient's vital signs: yes DS: Data Data Completed and Pending Completed studies during hospitalization: Procedures Introduction of Other Gas into Respiratory Tract, Via Natural or Artificial Opening (01/26/23) Introduction of Other Therapeutic Substance into Respiratory Tract, Via Natural or Artificial Opening (03/21/23) Labs on day of discharge: Labs from last 24 hours 05/27/23 06:40 WBC 1.69 L* RBC 2.37 L Hgb 7.5 L* Hct 24.0 L MCV 101 H MCH 32 MCHC 31 L RDW Coeff of Ambreen 17.8 H Plt Count 120 L Neut % (Auto) 58.0 Lymph % (Auto) 28.4 [place] % (Auto) 12.4 H Eos % (Auto) 0.0 Baso % (Auto) 0.0 Neut # (Auto) 1.00 L Lymph # (Auto) 0.50 L [place] # (Auto) 0.20 Eos # (Auto) 0.00 Baso # (Auto) 0.00 Abs Immat Gran (auto) 0.00 Imm/Tot Granulo (auto) 1.2 Diff Slide Review Acceptable Review VBG pH 7.392 VBG pCO2 48 VBG pO2 51.9 H VBG HCO3 29 H Sodium 143 Potassium 3.6 Chloride 110 Carbon Dioxide 28 Anion Gap 5 L BUN 36 H Creatinine 0.8 Estimated Creat Clear 31.69 Estimated GFR 74 Glucose 86 Calcium 7.8 L C-Reactive Protein 1.4 H Preliminary micro results at discharge 05/24/23 19:40 Blood Culture - Preliminary Blood NO GROWTH AFTER 48 HOURS 05/24/23 19:30 Blood Culture - Preliminary Blood NO GROWTH AFTER 48 HOURS Discharge Plan Discharge Disposition: Home, Self-Care Date of Admission: 05/24/23 23:35 Attending Provider on Discharge: David Staples Primary Care Provider: Marylou Roberts Condition: Stable Anticipated Discharge Date/Time: 05/27/23 11:30 Discharge Medications: New acyclovir 200 mg Capsule 400 mg PO BID Qty: 60 0RF fluconazole [Diflucan] 200 mg tablet 400 mg PO DAILY Qty: 60 0RF Continued melatonin 3 mg capsule 3 mg PO HS PRN magnesium oxide 400 mg magnesium capsule 400 mg PO DAILY calcium carbonate 500 mg calcium (1,250 mg) tablet 500 mg PO DAILY cyanocobalamin (vitamin B-12) 100 mcg tablet 100 mcg PO DAILY carvedilol 12.5 mg tablet 6.25 mg PO BID Rx Instructions: TAKE HALF TABLET BY MOUTH TWICE DAILY WITH A MEAL acetaminophen 325 mg tablet 650 mg PO QID PRNQty: 30 0RF Xarelto 20 mg tablet 20 mg PO QPM Rx Instructions: TAKE 1 TABLET BY MOUTH DAILY WITH EVENING MEAL pregabalin [Lyrica] 75 mg capsule 75 mg PO HS acyclovir 400 mg tablet 400 mg PO BID Discontinued sulfamethoxazole-trimethoprim 400-80 mg tablet 1 tab PO DAILY Discharge Orders: Discharge Order (Routine); Ordered 05/27/23 Ordered By: David Staples Patient Education: Acyclovir (By mouth), Fluconazole (By mouth) (Diflucan), Anemia (DC), COVID-19 (Coronavirus Disease 2019) (DC) Additional Instructions: You appear to be recovering from her COVID infection well. Your low blood counts are possibly related to your myeloma or the treatment of your myeloma. I have asked you to stop taking the sulfa trimethoprim antibiotic as it could affect your blood counts as well. Go to the oncology clinic next week and get your blood counts checked. They can decide if you should be restarted on sulfa trimethoprim. I have also ordered acyclovir and fluconazole to prevent viral and fungal infections that can occur in people with immune suppression. Activity Level: Activity as Tolerated Discharge Diet: Regular Follow Up Appointments: Marylou Roberts MD [Primary Care Provider] - 05/30/23 9:30 am ([facility]) Nilsa Garcias APRN [Advanced Practice Nurse] - (they will call you for appointment for next week ) Forms: [employer] Info Instructions
--- NOTE | 2023-05-27 15:35 | PC.NURSE ---
Discharge Summary: Patient pleasant and cooperative. Afebrile. O2 sats greater than 90% on room air. Denies pain. Up to chair with 2 assist and Octaviano lift or 2 assist, pivot transfer and gait belt. Tolerating regular diet with no nausea. Incontinent x3. Patient discharged home at 1342 with all personal belongings accompanied by daughter. Discharge instructions including diagnosis, medications and follow up appointment discussed with patient and family and voiced understanding.
== END 2023-05-27 13:42 | disposition home or self-care (01) | DRG 177 ==
LOC: ED 21:07 → MEDSURG 22:00
PROVIDERS: Internal Medicine; Admitting Provider Hospitalist; Emergency Provider Family Medicine; PCP Internal Medicine; Visit Provider Hospitalist
DX: U07.1 COVID-19 (principal); D61.810 Antineoplastic chemotherapy induced pancytopenia; C90.00 Multiple myeloma not having achieved remission; J96.12 Chronic respiratory failure with hypercapnia; R53.1 Weakness; D64.81 Anemia due to antineoplastic chemotherapy; F03.90 Unspecified dementia, unspecified severity, without behavioral disturbance, psychotic disturbance, mood disturbance, and anxiety; G14 Postpolio syndrome; Z87.01 Personal history of pneumonia (recurrent); G62.89 Other specified polyneuropathies; Z87.891 Personal history of nicotine dependence; Z86.711 Personal history of pulmonary embolism; Z79.01 Long term (current) use of anticoagulants; E03.9 Hypothyroidism, unspecified
CPT/HCPCS: 36415; 71045; 80048; 80053; 80076; 81001; 82803; 83605; 83735; 83880; 84100; 84145; 85025; 86140; 87040; 93005; 94640; 94761; 99284; 99285; A9270; C9113; J1100; J1642; J7030; J7050

== ENCOUNTER 2023-06-02 12:07 | Outpatient (CLI) | payer MEDICARE, OTHER, SELFPAY | END 2023-06-02 12:08 | disposition home or self-care (01) | LOC: AMB 06-04 10:50 | PROVIDERS: PCP Internal Medicine; Visit Provider Family Medicine | DX: R06.09 Other forms of dyspnea (principal); Z20.822 Contact with and (suspected) exposure to COVID-19 | CPT/HCPCS: A0425; A0427 ==

== ENCOUNTER 2023-06-02 12:43 | Inpatient (IN) | payer MEDICARE, OTHER, SELFPAY ==
[2023-06-02 12:51] VITALS: BP 166/70; PULSE 70; RESP 14; TEMP 36.6; O2SAT 91; BMI 20.9
[2023-06-02 13:19] VITALS: O2SAT 95
--- NOTE | 2023-06-02 13:19 | CRLHL7_ITS ---
For Patients: As a result of the Cures Act, medical imaging exams and procedure reports are released immediately into your electronic medical record. You may view this report before your referring provider. If you have questions, please contact your health care provider. INDICATION: Hypoxia. TECHNIQUE: Chest 1 views. COMPARISON: May 24, 2023. FINDINGS: Cardiovascular and mediastinum: Stable heart size and vasculature. Stable right IJ Port. Lungs and pleural spaces: Left basilar atelectasis. No sign of infiltrate or mass. No sign of pleural effusion. No pneumothorax. Bones and soft tissues: No significant findings. IMPRESSION: Left basilar atelectasis. No acute findings and no significant changes from the prior exam. Dictated by Jac Mullen MD @ 06/02/2023 1:50:52 PM (Electronically Signed)
--- NOTE | 2023-06-02 13:20 | ED.GENADULT ---
HPI - General Adult General Chief complaint: Shortness of Breath/Dyspnea Stated complaint: Shortness of breath Time Seen by Provider: 06/02/23 12:53 History of Present Illness HPI narrative: This 82-year-old female comes in with her . She has a history of polio and is wheelchair bound. Twelve days ago she was diagnosed with COVID and did receive medication which she took and her states that she was improved until 3 or 4 days ago when she began to be more short of breath with coughing. There is no report of fever. The patient arrives with oximetry at 86-87% on room air. With 2 L nasal cannula oxygen she improves up into the mid 90s. Related Data Home Medications Medication Instructions Recorded Confirmed calcium carbonate 500 mg calcium 500 mg PO DAILY 08/08/22 06/02/23 (1,250 mg) tablet cyanocobalamin (vitamin B-12) 100 1,000 mcg PO DAILY 08/08/22 06/02/23 mcg tablet magnesium oxide 400 mg PO DAILY 08/08/22 06/02/23 melatonin 3 mg capsule 4 mg PO HS PRN 08/08/22 06/02/23 carvedilol 12.5 mg tablet 6.25 mg PO BID 01/27/23 06/02/23 rivaroxaban 20 mg tablet (Xarelto) 20 mg PO QPM 03/21/23 06/02/23 pregabalin 75 mg capsule (Lyrica) 75 mg PO HS 05/25/23 06/02/23 albuterol 90 mcg/actuation aerosol mcg inhalation 06/02/23 inhaler allopurinol 300 mg tablet 300 mg PO DAILY 06/02/23 06/02/23 mirtazapine 7.5 mg tablet 7.5 mg PO QPM 06/02/23 06/02/23 Previous Rx's Medication Instructions Recorded acetaminophen 325 mg tablet 650 mg (2 x 325 mg) PO QID PRN #30 01/31/23 tabs acyclovir 200 mg capsule 400 mg (2 x 200 mg) PO BID #60 caps 05/27/23 Allergies Allergy/AdvReac Type Severity Reaction Status Date / Time No Known Allergies Allergy Unknown Verified 06/02/23 12:57 Review of Systems Status of ROS: Reports: 10 or more systems reviewed and unremarkable except as noted in History and below Narrative: Constitutional: No fevers, no weight gain or loss. Eyes: No discharge. No vision changes. HENT: No congestion, no sore throat, no ear pain. Cardiovascular: No chest pain, no palpitations. Respiratory: Cough and shortness of breath. Gastrointestinal: No abdominal pain, no vomiting, no diarrhea. Genitourinary: No dysuria, no hematuria. Musculoskeletal: Late affects of polio. Unable to ambulate. Skin: No rashes, no pruritis. Neurological: No dizziness, weakness, sensory change, speech change. Endo/Heme/Allergies: No bruising or bleeding. No polydipsia. Pysch: no suicidality, no anxiety, no insomnia. All other systems reviewed and are negative. 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 They also have a home in [place] but have primarily been living here since [facility]. Home here is handicap assessable in the live on 1 level. They have a caregiver who comes to their home in the afternoon 3 days a week from 130-430 on Monday and . Remote history of minimal smoking. She drinks up to a half glass of wine a day since returning home from [facility]. What is your current living situation?: I presently have a place to live Problems where you live: other Problems where you live details: no In the past 12 months, utilities in danger of being shut off: no In past 12 months, lack of transportation kept you from medical appts, meetings, work, or getting things needed for daily living: no In the past 12 mos, have been you worried that your food would run out before you had money to buy more?: never true In the past 12 mos, the food you bought just didn't last and you didn't have money to buy more?: never true Highest level of school completed/degree received: Master's degree Smoking Status: Former smoker What tobacco products do you use: cigarettes Smoking quit date/years: >15 years ago Do you use any of these nicotine containing products: None Second hand tobacco smoke exposure: No (unknown) How often do you have a drink containing alcohol: 2-3 times a week Alcohol type: wine How many standard drinks containing alcohol do you have on a typical day: 1 or 2 How often do you have six or more drinks on one occasion: Never AUDIT-C Alcohol total score: 3 Non-prescribed substance use: denies use Caffeine: Yes (coffee) How often does anyone, including family, friends and others, physically hurt you: unable to answer How often does anyone, including family, friends and others, insult or talk down to you: unable to answer How often does anyone, including family, friends and others, threaten you with harm: unable to answer How often does anyone, including family, friends and others, scream or curse at you: unable to answer Little interest or pleasure in doing things: not at all Feeling down, depressed, or hopeless: not at all service: No Exam Narrative: Exam Narrative: Constitutional: Well-developed, well-nourished, no acute distress. HEENT: Normocephalic, atraumatic. Neck: Normal range of motion. Nontender. Supple. Heart: Regular. No murmurs. Normal rate. Intact distal pulses. Lungs: Clear to auscultation. No chest discomfort. No wheezes, rhonchi, or rales. No use of accessory muscles for breathing. Abdomen: Normal bowel sounds. Nontender. No rebound tenderness. Genitalia: Deferred. Back: No midline tenderness. Normal range of motion. Extremities: Nonambulatory due to polio. Skin: Intact. No rash. Warm. No erythema or pallor. Neurologic: No altered sensation. Psychiatric: No suicidality. No anxiety or depression. No insomnia. Nursing notes and vitals signs are reviewed. Const: Vital Signs, click to edit/add: Vital Signs - 24 hr 06/02/23 12:51 06/02/23 13:19 06/02/23 14:40 Temperature 97.8 F Pulse Rate 66 Pulse Rate [Pulse Oximeter] 70 Respiratory Rate 14 Blood Pressure [Ri ght Upper Arm] 166/70 H Pulse Oximetry 91 95 95 Oxygen Delivery Me thod Room Air Nasal Cannula Oxygen Flow Rate 2 Course Vital Signs Vital signs: Initial Vital Signs Temperature 97.8 F 06/02/23 12:51 Temperature Source Temporal Artery Scan 06/02/23 12:51 Pulse Rate 70 06/02/23 12:51 Respiratory Rate 14 06/02/23 12:51 Blood Pressure 166/70 H 06/02/23 12:51 Blood Pressure Mean 102 06/02/23 12:51 Blood Pressure Position Supine 06/02/23 12:51 Pulse Oximetry 91 06/02/23 12:51 Oxygen Delivery Method Room Air 06/02/23 12:51 Vital Signs Temperature 97.8 F 06/02/23 12:51 Pulse Rate 70 06/02/23 12:51 Respiratory Rate 14 06/02/23 12:51 Blood Pressure 166/70 H 06/02/23 12:51 Pulse Oximetry 91 06/02/23 12:51 Oxygen Delivery Method Room Air 06/02/23 12:51 Temperature 97.8 F 06/02/23 12:51 Pulse Rate 66 06/02/23 14:40 Respiratory Rate 14 06/02/23 12:51 Blood Pressure 166/70 H 06/02/23 12:51 Pulse Oximetry 95 06/02/23 14:40 Oxygen Delivery Method Nasal Cannula 06/02/23 13:19 Oxygen Flow Rate 2 06/02/23 13:19 Medical Decision Making MDM Narrative Medical decision making narrative: This patient comes in with cough and shortness of breath. She arrives by ambulance and it was noted that her oximetry was at 86-87% on room air. She response to nasal cannula oxygen where at 1 L she improves to 95-97%. Chest x-ray shows no acute findings. The patient was positive for COVID 12 days ago in her COVID test today again returns positive. Influenza and RSV are negative. Her lab results are unchanged from previous but are certainly not normal. She has a white count of 1.86 and hemoglobin of 7.5. She has history of multiple myeloma and polio. I did turn off her nasal cannula oxygen to reassess her oximetry and again she decreased to 87% on room air at rest. I spoke with the hospitalist supervisor computer operations, Dr. Watson, who agrees to bring her into the hospital for further evaluation and treatment. Lab Data Labs: Lab Results 06/02/23 Range/Units 14:18 WBC 1.86 L* (4.50-11.00) K/uL RBC 2.43 L (4.00-5.20) m/uL Hgb 7.5 L* (12.0-16.0) gm/dL Hct 25.0 L (33.0-51.0) % MCV 103 H (80-100) fL MCH 31 (26-34) pg MCHC 30 L (32-36) gm/dL RDW Coeff of Ambreen 17.2 H (11.5-15.5) % Plt Count 119 L (140-440) K/uL Neut % (Auto) 42.5 (42.0-72.0) % Lymph % (Auto) 34.9 (20-44) % [place] % (Auto) 16.7 H (0.0-11.0) % Eos % (Auto) 4.3 (0.0-7.0) % Baso % (Auto) 1.6 (0.0-3.0) % Neut # (Auto) 0.80 L (1.7-7.0) K/uL Lymph # (Auto) 0.60 L (0.90-2.90) K/uL [place] # (Auto) 0.30 (0.00-0.90) K/UL Eos # (Auto) 0.10 (0.00-0.50) K/uL Baso # (Auto) 0.00 (0.00-0.30) K/uL Abs Immat Gran (auto) 0.00 (0.00-0.30) K/uL Imm/Tot Granulo (auto) 0.0 % Diff Slide Review Acceptable Review (Acceptable) D-Dimer Quant (PE/DVT) 0.23 (0.00-0.50) ug/ml Sodium 143 (135-149) mmol/L Potassium 3.5 L (3.6-5.1) mmol/L Chloride 107 (96-114) mmol/L Carbon Dioxide 32 (20-32) mmol/L Anion Gap 4 L (7-15) mEq/L BUN 15 (7-30) mg/dL Creatinine 0.8 (0.5-1.5) mg/dL Estimated Creat Clear 34.90 Estimated GFR 74 ml/min Glucose 74 (60-115) mg/dL Calcium 8.4 (8.4-10.6) mg/dL SARS-CoV-2 (PCR) POSITIVE SARS-CoV-2 A (Negative) Influenza Type A (PCR) Negative PCR FLU A (Negative) Influenza Type B (PCR) Negative PCR FLU B (Negative) RSV (PCR) Negative PCR RSV (Negative) POC Troponin I 0.01 (0.01-0.04) ng/ml Imaging Data Chest x-ray: Radiologist's impression: Left basilar atelectasis. No acute findings and no significant changes from the prior exam. ECG Data Attestation: I personally reviewed and interpreted this ECG as follows: Interpretation: Normal sinus rhythm. Rate is 68 beats per minute. There are no ST or T-wave abnormalities. Discharge Plan Discharge Clinical Impression: COVID-19, Pancytopenia, Hypoxia, Multiple myeloma Patient Disposition: Admitted As Observation Condition: Unchanged Prescriptions: No Action melatonin 3 mg capsule 4 mg PO HS PRN magnesium oxide 400 mg magnesium capsule 400 mg PO DAILY calcium carbonate 500 mg calcium (1,250 mg) tablet 500 mg PO DAILY cyanocobalamin (vitamin B-12) 100 mcg tablet 1,000 mcg PO DAILY carvedilol 12.5 mg tablet 6.25 mg PO BID Rx Instructions: TAKE HALF TABLET BY MOUTH TWICE DAILY WITH A MEAL acetaminophen 325 mg tablet 650 mg PO QID PRNQty: 30 0RF mirtazapine 7.5 mg tablet 7.5 mg PO QPM albuterol 90 mcg/actuation aerosol inhalation allopurinol 300 mg tablet 300 mg PO DAILY Xarelto 20 mg tablet 20 mg PO QPM Rx Instructions: TAKE 1 TABLET BY MOUTH DAILY WITH EVENING MEAL pregabalin [Lyrica] 75 mg capsule 75 mg PO HS acyclovir 200 mg Capsule 400 mg PO BID Qty: 60 0RF Follow Up/Referrals: Marylou Roberts MD [Primary Care Provider] -
[2023-06-02 14:32] LABS: Basophils Percent Auto 1.6 % (0.0-3.0); Eosinophils Percent Auto 4.3 % (0.0-7.0); Lymphocytes Percent Auto 34.9 % (20-44); Mean Corpuscular HGB Conc 30 gm/dL (32-36); Mean Corpuscular Hemoglobin 31 pg (26-34); Mean Corpuscular Volume 103 fL (80-100); Monocytes Percent Auto 16.7 % (0.0-11.0); Neutrophils Percent Auto 42.5 % (42.0-72.0); Platelet Count* 119 K/uL (140-440); RDW Coefficient of Variation % 17.2 % (11.5-15.5); Red Blood Count 2.43 m/uL (4.00-5.20)
[2023-06-02 14:36] LABS: White Blood Count* 1.86 K/uL (4.50-11.00)
[2023-06-02 14:37] LABS: Hemoglobin* 7.5 gm/dL (12.0-16.0); Troponin, Point-of-Care* 0.01 ng/ml (0.01-0.04)
[2023-06-02 14:39] LABS: Slide Review Reflex Yes
[2023-06-02 14:40] VITALS: PULSE 66; O2SAT 95
[2023-06-02 14:43] LABS: Chloride* 107 mmol/L (96-114); Potassium* 3.5 mmol/L (3.6-5.1); Sodium* 143 mmol/L (135-149)
[2023-06-02 14:46] LABS: Anion Gap 4 mEq/L (7-15); Carbon Dioxide* 32 mmol/L (20-32); Creatinine* 0.8 mg/dL (0.5-1.5); Estimated Glomerular Filt Rate 74 ml/min
[2023-06-02 14:47] LABS: Blood Urea Nitrogen* 15 mg/dL (7-30); Calcium* 8.4 mg/dL (8.4-10.6); Glucose* 74 mg/dL (60-115)
[2023-06-02 14:54] LABS: D Dimer Quantitative* 0.23 ug/ml (0.00-0.50)
[2023-06-02 14:59] LABS: Slide Review Acceptable Review (Acceptable)
[2023-06-02 15:14] LABS: PCR FLU A Negative PCR FLU A (Negative); PCR FLU B Negative PCR FLU B (Negative); PCR RSV Negative PCR RSV (Negative); SARS PCR* POSITIVE SARS-CoV-2 (Negative)
[2023-06-02 17:35] VITALS: BP 183/76; PULSE 76; RESP 18; RESP 20; TEMP 36.3; O2SAT 94; O2SAT 98; BMI 20.9
--- NOTE | 2023-06-02 18:50 | CRLHL7_ITS ---
For Patients: As a result of the Century Cures Act, medical imaging exams and procedure reports are released immediately into your electronic medical record. You may view this report before your referring provider. If you have questions, please contact your health care provider. INDICATIONS: Acute/chronic hypoxia. TECHNIQUE: CT chest without contrast. COMPARISON: CT chest 03/21/2023. FINDINGS: No pleural or pericardial effusions. No pathologic lymphadenopathy. Right-sided Port-A-Cath terminates in the distal SVC. Aortic atherosclerosis. 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 Main pulmonary artery is dilated to 3 cm, as before. Mild cardiomegaly. Mild coronary artery calcifications. Small hiatal hernia. Soft tissues of the thoracic wall are unremarkable. No pneumothorax. Mild secretions in the trachea. Mild lower lobe bronchial wall thickening. Mild bilateral scarring and atelectasis greatest at the lung bases. Lungs are otherwise clear. Visualized upper abdomen is unremarkable. Degenerative changes of the spine with accentuated thoracic kyphosis, as before. No acute osseous abnormality. IMPRESSION: 1. Mild lower lobe bronchial wall thickening is likely infectious or inflammatory. Bibasilar scarring or atelectasis. No evidence of acute airspace disease. 2. Dilatation of the ascending thoracic aorta and main pulmonary artery, as before. 3. Examination of the chest is otherwise unchanged. Dictated by Giuseppe Redd MD @ 06/02/2023 9:03:37 PM Please note that all CT scans at this facility use dose modulation, iterative reconstruction, and/or weight-based dosing when appropriate to reduce radiation dose to as low as reasonably achievable. Dictated by: Giuseppe Redd MD @ 06/02/2023 21:04:19 (Electronically Signed)
--- NOTE | 2023-06-02 18:55 | P.IMHP_ITS ---
Hospitalist- H&P: HPI History of Present Illness Time Seen by Provider: 17:30 Date Seen: 06/02/23 Chief complaint: Cough, hypoxia, hypersomnolence, weakness Narrative: Jennifer Medrano is a 82 year old woman presents with her to the emergency department for further assessment of recurrent, worsening cough and hypoxia. Patient was admitted and treated at [facility] from 24 May through 05/27/2023 due to new diagnosis of COVID-19, acute on chronic hypoxic respiratory failure in association with the same, increasing frailty. In the outpatient setting she was started on Paxlovid for treatment of COVID-19. Received 2 doses maximum before she presented to the hospital on 05/24/2023. In- hospital she received 3 days of remdesivir IV. Her hypoxic respiratory failure improve promptly on admission to the hospital. Her condition was back to [facility] before she was discharged and return home. informs me that she was doing well for the 1st 2-3 days at home. Subsequently she started to have a loose sounding cough that seemed to originate in her throat and she was not able to clear the loose secretions from her throat. Was seen by her primary care physician, Dr. Roberts, on the day that this set of symptoms started, 05/30/2023. The plan was that her would continue to try to help her at home with use of the Aerobika device and the bedside incentive spirometry device in addition to her other pulmonary medications. They attempted to do so with only minimal success because the patient slept most of the day, and thus in actuality they hardly utilized the recommended treatments at all. Given that her condition did not improve and her room air oxygen saturations were sometimes dropping into the mid 80% range at home, her opted to bring her into the emergency department for further assessment. Patient's dementia is such that it is difficult to trust all of her answers. For what it is worth, she indicates she has not been dyspneic. She acknowledges the cough. She indicates that is too difficult for her to clear her throat as much as she tries. Acknowledges weakness and hypersomnolence. Sleeping much of the day now. Patient and deny fevers, rigors, diaphoresis. She slept much of the day. Would awaken and eat regularly. Is on a regular diet. Not on a modified diet. No obvious aspiration or coughing with eating or drinking. Became increasingly weak at home over the last 2-3 days. Ordinarily utilizes a wheelchair for locomotion due to her post-polio syndrome. Over the last 2-3 days she has required help with all of her ADLs except for eating. She could feed herself after food prep and setup. Required maximum assist of 1 for any and all transfers from bed to bedside commode and back, to the point that she was only carrying this out 3 times a day at the most due to her increased weakness. Review of Systems Status of ROS: Reports: 10 or more systems reviewed and unremarkable except as noted in History and below Narrative: No chest heaviness, pressure, tightness, or pain. No syncope or near syncope. No nausea vomiting. No palpitations or chest fluttering. Denies diarrhea or constipation. Denies dysuria, urgency, frequency, hematuria. No recent trauma or injury. Patient's had COVID-19 2 weeks ago, his symptoms preceding the onset of her symptoms of COVID-19. His condition is totally resolved. Once again her symptoms were back to baseline by the time she left the hospital, and remained as such for a good 2-3 days before she started on with this more recent cough. Chronic weakness from post-polio syndrome. No acute focal motor neurologic deficits. Denies myalgias or arthralgias. Patient and indicate that she has been taking her medications as prescribed. Still able to swallow her pills. Yet, has not been administering pulmonary hygiene efforts as instructed when she last left the hospital and when she last saw her primary care physician a few days ago on 05/30/2023. 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 - Postpolio syndrome (ICD-10) Common variable hypogammaglobulinemia (2017) ?D80.1 - Nonfamilial hypogammaglobulinemia (ICD-10) History of aspiration pneumonia ?Z87.01 - Personal history of pneumonia (recurrent) (ICD-10) Peripheral neuropathy (04/21/11) ?G62.9 - Polyneuropathy, unspecified (ICD-10) Hypothyroidism (04/21/11) ?E03.9 - Hypothyroidism, unspecified (ICD-10) Chronic insomnia ?F51.04 - Psychophysiologic insomnia (ICD-10) History of hypertension ?Z86.79 - Personal history of other diseases of the circulatory system (ICD- 10) History of pulmonary embolism ?Z86.711 - Personal history of pulmonary embolism (ICD-10) History of breast cancer ?Z85.3 - Personal history of malignant neoplasm of breast (ICD-10) Surgical History History of placement of ear tubes (10/22/12) ?Z96.22 - Myringotomy tube(s) status (ICD-10) History of autologous stem cell transplant (04/21/11) ?Z94.84 - Stem cells transplant status (ICD-10) Social History Narrative: She lives in [place] with her . They also have a home in [place] but have primarily been living here since [facility]. Home here is handicap assessable in the live on 1 level. They have a caregiver who comes to their home in the afternoon 3 days a week from 130-430 on Monday and . Remote history of minimal smoking. She drinks up to a half glass of wine a day since returning home from [facility]. What is your current living situation?: I presently have a place to live Problems where you live: no known problems Problems where you live details: N/A In the past 12 months, utilities in danger of being shut off: no In past 12 months, lack of transportation kept you from medical appts, meetings, work, or getting things needed for daily living: no In the past 12 mos, have been you worried that your food would run out before you had money to buy more?: never true In the past 12 mos, the food you bought just didn't last and you didn't have money to buy more?: never true Highest level of school completed/degree received: Master's degree Smoking Status: Former smoker What tobacco products do you use: cigarettes Smoking quit date/years: >15 years ago Do you use any of these nicotine containing products: None Second hand tobacco smoke exposure: No (unknown) How often do you have a drink containing alcohol: 2-3 times a week Alcohol type: wine How many standard drinks containing alcohol do you have on a typical day: 1 or 2 How often do you have six or more drinks on one occasion: Never AUDIT-C Alcohol total score: 3 Non-prescribed substance use: denies use Caffeine: Yes (coffee) How often does anyone, including family, friends and others, physically hurt you : never How often does anyone, including family, friends and others, insult or talk down to you: never How often does anyone, including family, friends and others, threaten you with harm: never How often does anyone, including family, friends and others, scream or curse at you: never Little interest or pleasure in doing things: not at all Feeling down, depressed, or hopeless: not at all service: No Meds Home Medications and Allergies Home Medications Medication Instructions Recorded Confirmed Type calcium carbonate 500 mg calcium 500 mg PO DAILY 08/08/22 06/02/23 History (1,250 mg) tablet cyanocobalamin (vitamin B-12) 100 1,000 mcg PO DAILY 08/08/22 06/02/23 History mcg tablet magnesium oxide 400 mg PO DAILY 08/08/22 06/02/23 History melatonin 3 mg capsule 4 mg PO HS PRN 08/08/22 06/02/23 History carvedilol 12.5 mg tablet 6.25 mg PO BID 01/27/23 06/02/23 History rivaroxaban 20 mg tablet (Xarelto) 20 mg PO QPM 03/21/23 06/02/23 History pregabalin 75 mg capsule (Lyrica) 75 mg PO HS 05/25/23 06/02/23 History albuterol sulfate 90 mcg/actuation 2 inh inhalation Q4H PRN 06/02/23 06/02/23 History aerosol inhaler (Ventolin HFA) allopurinol 300 mg tablet 300 mg PO DAILY 06/02/23 06/02/23 History fluconazole 200 mg tablet 400 mg PO DAILY 06/02/23 06/02/23 History mirtazapine 7.5 mg tablet 7.5 mg PO HS 06/02/23 06/02/23 History multivitamin 1 tab PO DAILY 06/02/23 06/02/23 History Allergies Allergy/AdvReac Type Severity Reaction Status Date / Time No Known Allergies Allergy Unknown Verified 06/02/23 12:57 Exam Narrative: Exam Narrative: I examined the patient in her hospital room with her sitting in a chair at her bedside. She is sound asleep and appears comfortable and in no acute distress. Her head is extended backward in her mouth is wide open as she breathes. Oxygen supplementation is being delivered via nasal cannula at 2 liters/minute with saturations 94-96%. She is easily arousable by my holding her hand and talking with her. She barely opens her eyes and answers some of my questions with yes and no. In time she awakens a little more and converses somewhat but then falls asleep readily after I am done trying to talk with her. This is unlike how she was when she was in the hospital last week close to the time of her discharge from the hospital, when she was awake and interactive and talkative, not falling asleep. When awake she is oriented to self and recognizes her . Not oriented to place, time, or situation. Obeys simple 1 step commands. Moves extremities. Opens and closes her eyes. Open and close her mouth. Tympanic membranes normal bilaterally. Midline nasal septum. Dry buccal mucosa. Dentition in fair repair. No icterus or conjunctival injection. Conjugate gaze. Pupils equally round and reactive to light and accommodation. Neck is supple. Midline trachea. No JVD. No head neck lymphadenopathy. Lungs with scattered rhonchi without rales per se. No wheezing. Heart tones with regular rhythm, normal S1-S2. Abdomen with active bowel sounds, soft, nontender. Nondistended. No organomegaly, masses, rebound. Extremities without edema. Skin without wounds or rashes. Const: Vital Signs, click to edit/add: Vital Signs - 24 hr 06/02/23 12:51 06/02/23 13:19 06/02/23 14:40 Temperature 97.8 F Pulse Rate 66 Pulse Rate [Pulse Oximeter] 70 Pulse Rate [Right Radial] Respiratory Rate 14 Blood Pressure [Ri ght Arm] Blood Pressure [Ri ght Upper Arm] 166/70 H Pulse Oximetry 91 95 95 Oxygen Delivery Me thod Room Air Nasal Cannula Oxygen Flow Rate 2 06/02/23 17:35 Temperature 97.3 F L Pulse Rate Pulse Rate [Pulse Oximeter] Pulse Rate [Right Radial] 76 Respiratory Rate 20 Blood Pressure [Ri ght Arm] 183/76 H Blood Pressure [Ri ght Upper Arm] Pulse Oximetry 94 Oxygen Delivery Me thod Nasal Cannula Oxygen Flow Rate 1 Documenting provider has reviewed patient's vital signs: yes Hospitalist - H&P: Result Labs Labs: Short CBC 06/02/23 Range/Units 14:18 WBC 1.86 L* (4.50-11.00) K/uL Hgb 7.5 L* (12.0-16.0) gm/dL Hct 25.0 L (33.0-51.0) % Plt Count 119 L (140-440) K/uL BMP 06/02/23 14:18 Sodium 143 Potassium 3.5 L Chloride 107 Carbon Dioxide 32 BUN 15 Creatinine 0.8 Glucose 74 Calcium 8.4 Imaging Chest x-ray: Attestation: I have reviewed the pertinent imaging results. Radiologist's impression: IMPRESSION: Left basilar atelectasis. No acute findings and no significant changes from the prior exam. Assessment and Plan Assessment and plan (1) Acute on chronic hypoxic respiratory failure: Problem comment: - D/Dx: COPD +/- bronchitis (on bronchodilator Rx), bronchiectasis (CT chest 03/21/23), mucus plugging of airway, atelectasis, pneumonia (h/o), aspiration (h/o), pulmonary HTN (CT chest 03/21/23) - obtain CT chest 06/02/23 without contrast (on chronic rivaroxaban for h/o PE) and consider appropriate additional interventions - O2 supplementation, nebs, Aerobika, bedside incentive spirometer Status: Acute (2) Frailty syndrome in geriatric patient: Problem comment: - D/Dx: recent COVID, evolving multiple myeloma, evolving dementia, chronic anemia, CKD, polypharmacy, hypoxia, chronic adrenal insufficiency, urinary tract infection - assess and treat acute on chronic hypoxic respiratory failure as noted above - support with O2, monitor CBC and consider irradiated PRBC transfusion if warranted, such as Hg < 7, decrease dose of meds or stop meds if appropriate, monitor cortisol level now and cortisol and ACTH level in the morning to exclude adrenal insufficiency, urinalysis and urine culture - PT and OT consult - As recently as patient's last hospitalization, she informed me of her desire for full resuscitation and today (06/02/23) her reiterates this Status: Acute (3) Cough: Status: Acute (4) Dementia: Problem comment: At [address] [place] [address], SLUMS score 17/30 and dementia was diagnosed Status: Acute (5) Pancytopenia: Problem comment: Due to underlying multiple myeloma Status: Acute (6) Multiple myeloma: Problem comment: Dxed 07/2010, s/p autologous stem cell transplant 02/2011, chemotherapy started at [facility] 2012. Not in remission. Followed by [facility]ology Status: Acute (7) Common variable hypogammaglobulinemia: Problem comment: due to multiple myeloma Status: Acute (8) Polypharmacy: Problem comment: - hold unnecessary Rx, including melatonin - given her hypersomnolence, will hold off on her acyclovir and fluconazole prophylaxis meds for now and monitor - decrease dose of pregabalin from 75 mg to 50 mg nightly Status: Acute (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 Wheel-chair bound Status: Acute (10) Chronic kidney disease, stage 3b: Status: Acute
[2023-06-02 19:00] VITALS: BP 158/51; PULSE 71; RESP 18; TEMP 36.2; O2SAT 98
[2023-06-02 19:08] LABS: SARS Antigen* POSITIVE (Negative)
[2023-06-02] MEDS: 0.9 % SODIUM CHLORIDE 1000 ml 1,000 ML 125 ML IV (19:13)
[2023-06-02] MEDS: 0.9 % SODIUM CHLORIDE 250 ml 250 ML IV (19:14)
[2023-06-02 19:26] LABS: HCO3 VBG 33 mmol/L (21-28); PCO2 VBG 44 mmHG (40-50); PO2 VBG 51.9 mmHG (25-47); pH VBG 7.483 (7.32-7.43)
[2023-06-02] MEDS: POTASSIUM BICARB 25 MEQ EFFERVESCENT TAB PO (20:55)
[2023-06-02] MEDS: MIRTAZAPINE 15 MG TABLET 7.5 MG PO (20:55)
[2023-06-02] MEDS: IPRAT-ALBUT 0.5-2.5 MG/3 ML NEB 1 NEB IH (20:56)
[2023-06-02] MEDS: carvediloL 6.25 MG TABLET PO (20:57)
[2023-06-02] MEDS: PREGABALIN 50 MG CAPSULE PO (21:01)
[2023-06-02 23:00] VITALS: PULSE 70; RESP 18; O2SAT 96; O2SAT 98
[2023-06-03] VITALS (12 sets, daily range): BP systolic 101–185; BP diastolic 56–82; PULSE 70–94; RESP 18–24; TEMP 36.3–37.4; O2SAT 90–97
--- NOTE | 2023-06-03 06:44 | PC.NURSE ---
End of Shift: Pt pleasant and cooperative throughout shift, denied any pain. O2 sats 96-98% with 1L NC, 89-93% on RA. Inspiratory and expiratory crackles noted bilaterally. Port accessed for IV fluids, flushes well, tolerated infusion well. Pt is a irene lift/transfer, remained in bed throughout shift aside from CT scan. Tolerating regular diet well. at bedside until HS. No void, no BM throughtout shift.
[2023-06-03 06:54] LABS: HCO3 VBG 32 mmol/L (21-28); PCO2 VBG 49 mmHG (40-50); PO2 VBG 39.7 mmHG (25-47); pH VBG 7.426 (7.32-7.43)
[2023-06-03 06:56] LABS: Lactate* < 0.4 mmol/L (0.5-1.9)
[2023-06-03 06:58] LABS: Basophils Percent Auto 1.3 % (0.0-3.0); Eosinophils Percent Auto 3.4 % (0.0-7.0); Hematocrit 25.1 % (33.0-51.0); Lymphocytes Percent Auto 28.4 % (20-44); Mean Corpuscular HGB Conc 30 gm/dL (32-36); Mean Corpuscular Hemoglobin 31 pg (26-34); Mean Corpuscular Volume 104 fL (80-100); Monocytes Percent Auto 11.9 % (0.0-11.0); Platelet Count* 113 K/uL (140-440); RDW Coefficient of Variation % 17.1 % (11.5-15.5); Red Blood Count 2.42 m/uL (4.00-5.20); White Blood Count* 2.36 K/uL (4.50-11.00)
[2023-06-03 07:06] LABS: Hemoglobin* 7.4 gm/dL (12.0-16.0)
[2023-06-03 07:08] LABS: Slide Review Reflex No
[2023-06-03 07:31] LABS: Albumin* 2.7 g/dL (3.3-5.0); Chloride* 108 mmol/L (96-114); Potassium* 3.8 mmol/L (3.6-5.1); Sodium* 142 mmol/L (135-149)
[2023-06-03 07:33] LABS: Creatinine* 0.7 mg/dL (0.5-1.5); Estimated Glomerular Filt Rate 87 ml/min
[2023-06-03 07:34] LABS: Anion Gap 4 mEq/L (7-15); Blood Urea Nitrogen* 14 mg/dL (7-30); Calcium* 7.9 mg/dL (8.4-10.6); Carbon Dioxide* 30 mmol/L (20-32); Glucose* 67 mg/dL (60-115); Phosphorus* 2.9 mg/dL (2.5-4.5)
--- NOTE | 2023-06-03 07:45 | PM.IMPN1 ---
Progress Note: A&P Assessment and plan (1) Acute on chronic hypoxic respiratory failure: Problem details: - mucus plugging and hx of COPD in setting of subacute covid-19. likely represents a rebound covid 19 experience after paxlovid therapy. - no covid specific therapies - continue oxygen support, nebs (adding saline to combivent), Aerobika, bedside incentive spirometer Status: Acute (2) COVID-19: Problem details: dx 05/22 - started on paxlovid. admitted 05/24 to [facility] for hypoxia. given 3 days of remdesivir. as of 06/03 - day 13 of Covid - Status: Acute (3) Acute anemia: Problem details: -2/2 chronic disease. stable. no evidence of ABLA. dramatic shift from summer 2022 baseline. given overall weakness and debility - will transfuse 1 unit prbcs. Status: Acute (4) Pancytopenia: Problem details: Due to underlying multiple myeloma Status: Acute (5) Multiple myeloma: Problem details: Dxed 07/2010, s/p autologous stem cell transplant 02/2011, chemotherapy started at [facility] 2012. Not in remission. Followed by [facility]ology Status: Acute (6) Frailty syndrome in geriatric patient: Problem details: - D/Dx: recent COVID, evolving multiple myeloma, evolving dementia, subacute anemia, CKD, polypharmacy, hypoxia, chronic adrenal insufficiency, urinary tract infection - assess and treat acute on chronic hypoxic respiratory failure as noted above - support with O2, monitor CBC and consider irradiated PRBC transfusion if warranted, such as Hg < 7, decrease dose of meds or stop meds if appropriate, monitor cortisol level now and cortisol and ACTH level in the morning to exclude adrenal insufficiency, urinalysis and urine culture - PT and OT consult - As recently as patient's last hospitalization, she informed me of her desire for full resuscitation and today (06/02/23) her reiterates this Status: Acute (7) Dementia: Problem details: At [address] [place] [address], SLUMS score 17/30 and dementia was diagnosed Status: Acute (8) Common variable hypogammaglobulinemia: Problem details: due to multiple myeloma Status: Acute (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 Wheel-chair bound Status: Acute (10) Polypharmacy: Problem details: - hold unnecessary Rx, including melatonin - given her hypersomnolence, will hold off on her acyclovir and fluconazole prophylaxis meds for now and monitor - decrease dose of pregabalin from 75 mg to 50 mg nightly Status: Acute (11) Chronic kidney disease, stage 3b: Status: Acute Subjective Date Seen: 06/03/23 Interval history: Daily Progress Note - Hospital Medicine #: 2 CC: Acute respiratory distress, new hypoxia. Dementia. Recent COVID. OVERNIGHT UPDATES FROM STAFF & MED, LAB, IMAGING UPDATES -stable night. Patient is improved this morning. She is caring on conversations and seems to be brighter and feeling better. -still having a productive congested-sounding cough. -oxygen therapy weaned to 1 L with stable saturations Has remained afebrile overnight Blood pressure is mildly elevated 140s to 180s systolic over 50s to 70s diastolic Pulse 70 Resp is 18 Pulse ox 93-96% on 1 L Bed weight 75.3 kilos CBC shows stable but recently acute anemia. Hemoglobin 7.4 which is essentially the same since 05/24 - when she was admitted WBC count is low but stable Platelet count is low but stable PH is normal. No CO2 retention. Lactate, electrolytes, renal function, magnesium all essentially normal Cortisol pending Rapid antigen positive for SARs. Previously known positive in late April, treated with 2 days of paxlovid and 3 days IV Remdesivir at her last hospital stay Blood cultures drawn at admission are negative to date RN: Pt pleasant and cooperative throughout shift, denied any pain. O2 sats 96-98% with 1L NC, 89-93% on RA. Inspiratory and expiratory crackles noted bilaterally. Port accessed for IV fluids, flushes well, tolerated infusion well. Pt is a irene lift/transfer, remained in bed throughout shift aside from CT scan. Tolerating regular diet well. at bedside until HS. No void, no BM throughtout shift. CT Chest from admission: 1. Mild lower lobe bronchial wall thickening is likely infectious or inflammatory. Bibasilar scarring or atelectasis. No evidence of acute airspace disease. 2. Dilatation of the ascending thoracic aorta and main pulmonary artery, as before. 3. Examination of the chest is otherwise unchanged. Objective: Alert. Happy. Asks questions but then seems a little confused during the conversation. I think this is about her baseline. Vitals: see above Lungs: Left-sided rhonchi and crackles. Some upper airway congestion. No respiratory distress. Cardiac: S1S2. Disposition/Potential discharge - Likely to return to previous living situation. Today I spent 50minutes seeing the patient, reviewing Expanse and EPIC notes/diagnostics, discussing the care plan with our care time that includes social work, PT/OT, pharmacy, RT, intermediate and documenting my impressions and plan in the medical record. Exam Const: Vital Signs, click to edit/add: Vital Signs - 24 hr 06/02/23 12:51 06/02/23 13:19 06/02/23 14:40 Temperature 97.8 F Pulse Rate 66 Pulse Rate [Pulse Oximeter] 70 Pulse Rate [Right Radial] Respiratory Rate 14 Blood Pressure [Ri ght Arm] Blood Pressure [Ri ght Upper Arm] 166/70 H Pulse Oximetry 91 95 95 Oxygen Delivery Me thod Room Air Nasal Cannula Oxygen Flow Rate 2 06/02/23 17:35 06/02/23 17:35 06/02/23 19:00 Temperature 97.3 F L 97.1 F L Pulse Rate Pulse Rate [Pulse Oximeter] Pulse Rate [Right Radial] 76 71 Respiratory Rate 20 18 18 Blood Pressure [Ri ght Arm] 183/76 H 158/51 H Blood Pressure [Ri ght Upper Arm] Pulse Oximetry 94 98 98 Oxygen Delivery Me thod Nasal Cannula Nasal Cannula Nasal Cannula Oxygen Flow Rate 1 1 1 06/02/23 23:00 06/02/23 23:00 06/02/23 23:00 Temperature Pulse Rate Pulse Rate [Pulse Oximeter] Pulse Rate [Right Radial] 70 70 Respiratory Rate 18 18 18 Blood Pressure [Ri ght Arm] Blood Pressure [Ri ght Upper Arm] Pulse Oximetry 98 96 Oxygen Delivery Me thod Nasal Cannula Nasal Cannula Oxygen Flow Rate 1 1 06/03/23 03:00 Temperature 97.4 F L Pulse Rate Pulse Rate [Pulse Oximeter] Pulse Rate [Right Radial] 70 Respiratory Rate 18 Blood Pressure [Ri ght Arm] 142/57 H Blood Pressure [Ri ght Upper Arm] Pulse Oximetry 93 Oxygen Delivery Me thod Room Air Oxygen Flow Rate Labs Labs: Laboratory Results - last 24 hr 06/02/23 06/02/23 06/02/23 14:18 18:09 19:05 WBC 1.86 L* RBC 2.43 L Hgb 7.5 L* Hct 25.0 L MCV 103 H MCH 31 MCHC 30 L RDW Coeff of Ambreen 17.2 H Plt Count 119 L Neut % (Auto) 42.5 Lymph % (Auto) 34.9 Antelope % (Auto) 16.7 H Eos % (Auto) 4.3 Baso % (Auto) 1.6 Neut # (Auto) 0.80 L Lymph # (Auto) 0.60 L Antelope # (Auto) 0.30 Eos # (Auto) 0.10 Baso # (Auto) 0.00 Abs Immat Gran (auto) 0.00 Imm/Tot Granulo (auto) 0.0 Diff Slide Review Acceptable Review D-Dimer Quant (PE/DVT) 0.23 VBG pH 7.483 H VBG pCO2 44 VBG pO2 51.9 H VBG HCO3 33 H Sodium 143 Potassium 3.5 L Chloride 107 Carbon Dioxide 32 Anion Gap 4 L BUN 15 Creatinine 0.8 Estimated Creat Clear 34.90 Estimated GFR 74 Glucose 74 Lactate Calcium 8.4 Phosphorus Magnesium Albumin SARS-CoV-2 (PCR) POSITIVE SARS-CoV-2 A Influenza Type A (PCR) Negative PCR FLU A Influenza Type B (PCR) Negative PCR FLU B RSV (PCR) Negative PCR RSV SARS-CoV-2 Ag (Rapid) POSITIVE A POC Troponin I 0.01 06/03/23 06:22 WBC 2.36 L RBC 2.42 L Hgb 7.4 L* Hct 25.1 L MCV 104 H MCH 31 MCHC 30 L RDW Coeff of Ambreen 17.1 H Plt Count 113 L Neut % (Auto) 55.0 Lymph % (Auto) 28.4 Antelope % (Auto) 11.9 H Eos % (Auto) 3.4 Baso % (Auto) 1.3 Neut # (Auto) 1.30 L Lymph # (Auto) 0.70 L Antelope # (Auto) 0.30 Eos # (Auto) 0.10 Baso # (Auto) 0.00 Abs Immat Gran (auto) 0.00 Imm/Tot Granulo (auto) 0.0 Diff Slide Review D-Dimer Quant (PE/DVT) VBG pH 7.426 VBG pCO2 49 VBG pO2 39.7 VBG HCO3 32 H Sodium 142 Potassium 3.8 Chloride 108 Carbon Dioxide 30 Anion Gap 4 L BUN 14 Creatinine 0.7 Estimated Creat Clear 34.90 Estimated GFR 87 Glucose 67 Lactate < 0.4 L Calcium 7.9 L Phosphorus 2.9 Magnesium 2.0 Albumin 2.7 L SARS-CoV-2 (PCR) Influenza Type A (PCR) Influenza Type B (PCR) RSV (PCR) SARS-CoV-2 Ag (Rapid) POC Troponin I
[2023-06-03 08:17] LABS: C Reactive Protein* 0.7 mg/dL (0.5-1.0)
[2023-06-03 08:25] LABS: Iron* 37 ug/dL (37-170)
[2023-06-03 08:32] LABS: Procalcitonin* 0.04 ng/mL (<0.50)
[2023-06-03 08:34] LABS: Percent Iron Saturation 14 % (20-50); Total Iron Binding Capacity 271 ug/dL (265-497)
[2023-06-03] MEDS: MAGNESIUM OXIDE 400 MG TABLET PO (08:36)
[2023-06-03] MEDS: CYANOCOBALAMIN (VITAMIN B-12) 500 MCG TABLET 1000 MCG PO (08:36)
[2023-06-03] MEDS: allopurinoL 300 MG TABLET PO (08:36)
[2023-06-03] MEDS: carvediloL 6.25 MG TABLET PO ×2 (08:36→22:17)
[2023-06-03] MEDS: SODIUM CHLORIDE 0.9 % (FLUSH) 10 ML SYRINGE 5 ML IVF ×3 (08:37→22:20)
[2023-06-03 09:02] LABS: Ferritin* 53.7 ng/mL (11.1-264.0)
[2023-06-03] MEDS: IPRAT-ALBUT 0.5-2.5 MG/3 ML NEB 1 NEB IH ×3 (10:57→22:18)
[2023-06-03] MEDS: BUDESONIDE 0.5 MG/2ML NEB NEB ×2 (10:57→22:17)
[2023-06-03] MEDS: HEPARIN 500 UNIT/5 ML SYRINGE IVF (12:57)
[2023-06-03] MEDS: ACETAMINOPHEN 325 MG TABLET 650 MG PO ×2 (13:41→18:23)
[2023-06-03] MEDS: AMLODIPINE 5 MG TABLET PO (14:46)
[2023-06-03] MEDS: ONDANSETRON ODT 4 MG TAB PO (16:20)
[2023-06-03] MEDS: RIVAROXABAN 10 MG TABLET 20 MG PO (18:23)
--- NOTE | 2023-06-03 18:47 | PC.NURSE ---
Addendum entered by Kerry Alejandro RN 06/03/23 19:59: Blood transfusion: Vitals documented for 1135 in TAR actually done @ 1335, done 30min post-transfusion, unable to edit in TAR. Original Note: Pt doing well this AM, vitals stable. Requiring 0.5 L, NC. Pulses diminished in LEs, right drop foot. Refusing SCDs and TEDS. Worked w/ PT, stand pivot to chair, took some steps. Ate 100% of breakfast, 50% of lunch. Large void in AM. PIV in right hand- SL, right port accessed- heparin locked. Up in chair most of morning. Blood given ~1000, VSS while giving blood. ~half hour after blood went in, pt started shaking, chills, high BP- provider aware, given oral allopurinol. Requiring more effort to breath- abdominal use, 24-26 bpm. Saturations in high 80s, low 90s- requiring 2.5L NC. Airway congested, unable to cough up secretions. Temps ~99F, PRN tylenol given x2. Soft large BM x2. Large voids x3. Placed on 2L NC w/ tented humidity. Pt using irene to transfer. PIV in hand- SL'd, port in right chest- heparin locked. Will continue to monitor, follow POC, and keep pt and family updated. Frannie Zimmerman RN
[2023-06-03] MEDS: MIRTAZAPINE 15 MG TABLET 7.5 MG PO (22:18)
[2023-06-03] MEDS: guaiFENesin 600 MG TAB.ER.12H 1200 MG PO (22:18)
[2023-06-03] MEDS: ONDANSETRON 2 MG/ML inj 4 MG IVP (22:20)
[2023-06-03] MEDS: PREGABALIN 50 MG CAPSULE PO (22:53)
[2023-06-04] VITALS (7 sets, daily range): BP systolic 106–132; BP diastolic 53–65; PULSE 73–86; RESP 20–33; TEMP 36.4–37.4; O2SAT 90–95
--- NOTE | 2023-06-04 06:03 | PC.NURSE ---
END OF SHIFT NOTE: PT PLEASANTLY DEMENTED. PT COOPERATIVE WITH CARES. A&Ox1. DENIES CP, SOB, N/V. [employer]. W/C BOUND D/T HX OF POLIO. VSS ON 1-2L NC; AFEBRILE. INCONTINENT OF BOWEL AND BLADDER. BED ALARM ON AND CALL LIGHT WITHIN PT?S REACH.?
[2023-06-04 06:32] LABS: HCO3 VBG 33 mmol/L (21-28); PO2 VBG 38.2 mmHG (25-47); pH VBG 7.329 (7.32-7.43)
[2023-06-04 06:37] LABS: PCO2 VBG 62 mmHG (40-50)
[2023-06-04 06:40] LABS: Basophils Absolute Auto 0.02 K/uL (0.00-0.30); Basophils Percent Auto 0.4 % (0.0-3.0); Eosinophils Absolute Auto 0.03 K/uL (0.00-0.50); Eosinophils Percent Auto 0.6 % (0.0-7.0); Hemoglobin* 9.8 gm/dL (12.0-16.0); Immature Granulocytes Abs Auto 0.01 K/uL (0.00-0.30); Immature Granulocytes Pct Auto 0.2 %; Lymphocytes Percent Auto 14.6 % (20-44); Mean Corpuscular HGB Conc 31 gm/dL (32-36); Mean Corpuscular Hemoglobin 32 pg (26-34); Mean Corpuscular Volume 104 fL (80-100); Monocytes Percent Auto 9.7 % (0.0-11.0); Neutrophils Percent Auto 74.5 % (42.0-72.0); Platelet Count* 97 K/uL (140-440); RDW Coefficient of Variation % 16.5 % (11.5-15.5); Red Blood Count 3.09 m/uL (4.00-5.20); White Blood Count* 4.74 K/uL (4.50-11.00)
[2023-06-04 06:42] LABS: Slide Review Reflex No
[2023-06-04 06:53] LABS: Chloride* 108 mmol/L (96-114)
[2023-06-04 06:54] LABS: Albumin* 2.7 g/dL (3.3-5.0); Potassium* 3.8 mmol/L (3.6-5.1); Sodium* 142 mmol/L (135-149)
[2023-06-04 06:56] LABS: Anion Gap 3 mEq/L (7-15); Blood Urea Nitrogen* 24 mg/dL (7-30); Carbon Dioxide* 31 mmol/L (20-32); Creatinine* 0.9 mg/dL (0.5-1.5); Estimated Glomerular Filt Rate 64 ml/min
[2023-06-04 06:57] LABS: Calcium* 8.2 mg/dL (8.4-10.6); Glucose* 82 mg/dL (60-115); Phosphorus* 3.5 mg/dL (2.5-4.5)
[2023-06-04] MEDS: allopurinoL 300 MG TABLET PO (08:44)
[2023-06-04] MEDS: BUDESONIDE 0.5 MG/2ML NEB NEB ×2 (08:44→20:09)
[2023-06-04] MEDS: guaiFENesin 600 MG TAB.ER.12H 1200 MG PO ×2 (08:45→20:10)
[2023-06-04] MEDS: MAGNESIUM OXIDE 400 MG TABLET PO (08:45)
[2023-06-04] MEDS: IPRAT-ALBUT 0.5-2.5 MG/3 ML NEB 1 NEB IH ×3 (08:45→20:10)
[2023-06-04] MEDS: CYANOCOBALAMIN (VITAMIN B-12) 500 MCG TABLET 1000 MCG PO (08:45)
[2023-06-04] MEDS: carvediloL 6.25 MG TABLET PO ×2 (09:21→20:10)
--- NOTE | 2023-06-04 09:27 | PM.IMPN1 ---
Progress Note: A&P Assessment and plan (1) Acute on chronic hypoxic respiratory failure: Problem details: - mucus plugging and hx of COPD in setting of subacute covid-19. likely represents a rebound covid 19 experience after paxlovid therapy. - no covid specific therapies - continue oxygen support, nebs (adding saline to combivent), Aerobika, bedside incentive spirometer -mild hypercapnia overnight. follow clinically. Status: Acute (2) COVID-19: Problem details: dx 05/22 - started on paxlovid. admitted 05/24 to [facility] for hypoxia. given 3 days of remdesivir. as of 06/04 - day 14 of Covid - Status: Acute (3) Acute anemia: Problem details: -2/2 chronic disease. stable. no evidence of ABLA. dramatic shift from summer 2022 baseline. given overall weakness and debility - will transfuse 1 unit prbcs. -hgb >9 following transfusion of 1 unit Status: Acute (4) Pancytopenia: Problem details: Due to underlying multiple myeloma Status: Acute (5) Multiple myeloma: Problem details: Dxed 07/2010, s/p autologous stem cell transplant 02/2011, chemotherapy started at [facility] 2012. Not in remission. Followed by [facility] hematology Status: Acute (6) Frailty syndrome in geriatric patient: Problem details: - D/Dx: recent COVID, evolving multiple myeloma, evolving dementia, subacute anemia, CKD, polypharmacy, hypoxia, chronic adrenal insufficiency, urinary tract infection - assess and treat acute on chronic hypoxic respiratory failure as noted above - support with O2, monitor CBC and consider irradiated PRBC transfusion if warranted, such as Hg < 7, decrease dose of meds or stop meds if appropriate, monitor cortisol level now and cortisol and ACTH level in the morning to exclude adrenal insufficiency, urinalysis and urine culture - PT and OT consult - As recently as patient's last hospitalization, she informed me of her desire for full resuscitation and today (06/02/23) her reiterates this Status: Acute (7) Dementia: Problem details: At [address] [place] [address], SLUMS score 17/30 and dementia was diagnosed Status: Acute (8) Common variable hypogammaglobulinemia: Problem details: due to multiple myeloma Status: Acute (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 Wheel-chair bound Status: Acute (10) Polypharmacy: Problem details: - hold unnecessary Rx, including melatonin - given her hypersomnolence, will hold off on her acyclovir and fluconazole prophylaxis meds for now and monitor - decrease dose of pregabalin from 75 mg to 50 mg nightly Status: Acute (11) Chronic kidney disease, stage 3b: Status: Acute Subjective Date Seen: 06/04/23 Interval history: Daily Progress Note - Hospital Medicine #: 3 CC: Acute respiratory distress, new hypoxia. Dementia. Recent COVID. OVERNIGHT UPDATES FROM STAFF & MED, LAB, IMAGING UPDATES - working on strength, pivoting. improved some. -still having a productive congested-sounding cough. -oxygen therapy weaned to 1 L with stable saturations Has remained afebrile overnight Blood pressure returned to baseline after blood transfusion yesterday Pulse 70 Resp is 18 Pulse ox 93-96% on 1 L Bed weight 76 kg, up 0.7kg from yesterday. CBC reflects an ice bump in her hemoglobin up to 9.8. White blood cell count has improved nicely to 4.74. Platelets have drifted to less than 100,000. CO2 62, this is unusual for her. PH is normal. Electrolytes are all normal. Renal function normal. Cortisol still pending. Review of her albumin, iron panel, ferritin, CRP, lactate drawn yesterday are all reassuring. Rapid antigen positive for SARs. Previously known positive in late April, treated with 2 days of paxlovid and 3 days IV Remdesivir at her last hospital stay Blood cultures drawn on 06/02 at admission remain negative. No MRSA on screen. RN: PT COOPERATIVE WITH CARES. A&Ox1. DENIES CP, SOB, N/V. [employer] LIFE. W/C BOUND D/T HX OF POLIO. VSS ON 1-2L NC; AFEBRILE. INCONTINENT OF BOWEL AND BLADDER. BED ALARM ON AND CALL LIGHT WITHIN PT?S REACH. MAR added mucinex getting combivent nebs q6 kyle getting pulmicort nebs bid kyle CT Chest from admission: 1. Mild lower lobe bronchial wall thickening is likely infectious or inflammatory. Bibasilar scarring or atelectasis. No evidence of acute airspace disease. 2. Dilatation of the ascending thoracic aorta and main pulmonary artery, as before. 3. Examination of the chest is otherwise unchanged. Objective: Alert. Happy. Asks questions but then seems a little confused during the conversation. I think this is about her baseline. Vitals: see above Lungs: Left-sided rhonchi and crackles. Some upper airway congestion. No respiratory distress. Cardiac: S1S2. Disposition/Potential discharge - Likely to return to previous living situation. Today I spent 50minutes seeing the patient, reviewing Expanse and EPIC notes/diagnostics, discussing the care plan with our care time that includes social work, PT/OT, pharmacy, RT, [facility] and documenting my impressions and plan in the medical record. Exam Const: Vital Signs, click to edit/add: Vital Signs - 24 hr 06/03/23 10:26 06/03/23 10:50 06/03/23 11:00 Temperature 98 F 97.8 F 98.0 F Pulse Rate 74 76 Pulse Rate [Pulse Oximeter] 81 Respiratory Rate 18 18 18 Blood Pressure 139/75 153/69 H Blood Pressure [Ri ght Arm] 168/67 H Pulse Oximetry 96 97 95 Oxygen Delivery Me thod Nasal Cannula Oxygen Flow Rate 1 Fraction of Inspir ed Oxygen 06/03/23 11:35 06/03/23 11:50 06/03/23 12:50 Temperature 98.6 F 98.0 F 98.5 F Pulse Rate 82 81 75 Pulse Rate [Pulse Oximeter] Respiratory Rate 22 18 20 Blood Pressure 178/66 H 168/67 H 185/82 H Blood Pressure [Ri ght Arm] Pulse Oximetry 93 95 95 Oxygen Delivery Me thod Oxygen Flow Rate Fraction of Inspir ed Oxygen 06/03/23 15:00 06/03/23 15:00 06/03/23 15:00 Temperature 98.3 F Pulse Rate Pulse Rate [Pulse Oximeter] 94 94 Respiratory Rate 22 22 22 Blood Pressure Blood Pressure [Ri ght Arm] 161/76 H Pulse Oximetry 90 90 Oxygen Delivery Me thod Nasal Cannula Nasal Cannula Oxygen Flow Rate 2 2 Fraction of Inspir ed Oxygen 06/03/23 18:18 06/03/23 19:00 06/03/23 19:43 Temperature 99.3 F Pulse Rate Pulse Rate [Pulse Oximeter] 93 Respiratory Rate 24 20 Blood Pressure Blood Pressure [Ri ght Arm] 127/56 L Pulse Oximetry 92 94 Oxygen Delivery Me thod Nasal Cannula Nasal Cannula Oxygen Flow Rate 2.5 2 Fraction of Inspir ed Oxygen 0.28 10/07/23 22:10 06/03/23 22:10 06/03/23 22:10 Temperature Pulse Rate Pulse Rate [Pulse Oximeter] 77 Respiratory Rate 22 22 Blood Pressure Blood Pressure [Ri ght Arm] Pulse Oximetry 93 93 Oxygen Delivery Me thod Nasal Cannula Oxygen Flow Rate 2 Fraction of Inspir ed Oxygen 06/03/23 22:10 06/04/23 00:00 06/04/23 03:30 Temperature 97.8 F 97.7 F 97.5 F L Pulse Rate Pulse Rate [Pulse Oximeter] 77 78 75 Respiratory Rate 22 22 24 Blood Pressure Blood Pressure [Ri ght Arm] 101/56 L 112/53 L 106/55 L Pulse Oximetry 93 91 95 Oxygen Delivery Me thod Nasal Cannula Nasal Cannula Nasal Cannula Oxygen Flow Rate 2 2 1 Fraction of Inspir ed Oxygen 06/04/23 07:00 06/04/23 07:00 06/04/23 07:00 Temperature 97.9 F Pulse Rate Pulse Rate [Pulse Oximeter] 73 Respiratory Rate 28 H 28 H Blood Pressure Blood Pressure [Ri ght Arm] 126/61 Pulse Oximetry 93 92 95 Oxygen Delivery Me thod Nasal Cannula Nasal Cannula Oxygen Flow Rate 1 1 Fraction of Inspir ed Oxygen Labs Labs: Laboratory Results - last 24 hr 06/03/23 06/03/23 06/04/23 06:22 06:22 06:20 WBC 4.74 RBC Hgb Hct MCV MCH MCHC RDW Coeff of Ambreen Plt Count Neut % (Auto) Lymph % (Auto) [place] % (Auto) Eos % (Auto) Baso % (Auto) Neut # (Auto) Lymph # (Auto) [place] # (Auto) Eos # (Auto) Baso # (Auto) Abs Immat Gran (auto) Imm/Tot Granulo (auto) VBG pH VBG pCO2 VBG pO2 VBG HCO3 Sodium Potassium Chloride Carbon Dioxide Anion Gap BUN Creatinine Estimated Creat Clear Estimated GFR Glucose Calcium Phosphorus Albumin Blood Type B Negative Antibody Screen NEGATIVE Crossmatch ([facility]) See Detail See Detail 06/04/23 06/04/23 06/04/23 06:20 06:20 06:20 WBC Cancelled RBC 3.09 L Cancelled Hgb 9.8 L Cancelled Hct 32.0 L MCV MCH MCHC RDW Coeff of Ambreen Plt Count Neut % (Auto) Lymph % (Auto) [place] % (Auto) Eos % (Auto) Baso % (Auto) Neut # (Auto) Lymph # (Auto) [place] # (Auto) Eos # (Auto) Baso # (Auto) Abs Immat Gran (auto) Imm/Tot Granulo (auto) VBG pH VBG pCO2 VBG pO2 VBG HCO3 Sodium Potassium Chloride Carbon Dioxide Anion Gap BUN Creatinine Estimated Creat Clear Estimated GFR Glucose Calcium Phosphorus Albumin Blood Type Antibody Screen Crossmatch ([facility]) 06/04/23 06/04/23 06/04/23 06:20 06:20 06:20 WBC RBC Hgb Hct Cancelled MCV 104 H Cancelled MCH 32 Cancelled MCHC 31 L RDW Coeff of Ambreen Plt Count Neut % (Auto) Lymph % (Auto) [place] % (Auto) Eos % (Auto) Baso % (Auto) Neut # (Auto) Lymph # (Auto) [place] # (Auto) Eos # (Auto) Baso # (Auto) Abs Immat Gran (auto) Imm/Tot Granulo (auto) VBG pH VBG pCO2 VBG pO2 VBG HCO3 Sodium Potassium Chloride Carbon Dioxide Anion Gap BUN Creatinine Estimated Creat Clear Estimated GFR Glucose Calcium Phosphorus Albumin Blood Type Antibody Screen Crossmatch ([facility]) 06/04/23 06/04/23 06:20 06:20 WBC RBC Hgb Hct MCV MCH MCHC Cancelled RDW Coeff of Ambreen 16.5 H Plt Count 97 L Cancelled Neut % (Auto) 74.5 H Lymph % (Auto) 14.6 L [place] % (Auto) 9.7 Eos % (Auto) 0.6 Baso % (Auto) 0.4 Neut # (Auto) 3.50 Lymph # (Auto) 0.70 L [place] # (Auto) 0.50 Eos # (Auto) 0.03 Baso # (Auto) 0.02 Abs Immat Gran (auto) 0.01 Imm/Tot Granulo (auto) 0.2 VBG pH 7.329 VBG pCO2 62 H* VBG pO2 38.2 VBG HCO3 33 H Sodium 142 Potassium 3.8 Chloride 108 Carbon Dioxide 31 Anion Gap 3 L BUN 24 Creatinine 0.9 Estimated Creat Clear 34.90 Estimated GFR 64 Glucose 82 Calcium 8.2 L Phosphorus 3.5 Albumin 2.7 L Blood Type Antibody Screen Crossmatch ([facility])
[2023-06-04] MEDS: SODIUM CHLORIDE 0.9 % (FLUSH) 10 ML SYRINGE 5 ML IVF (11:21)
[2023-06-04] MEDS: RIVAROXABAN 10 MG TABLET 20 MG PO (18:04)
[2023-06-04] MEDS: CARBOXYMETHYLCELLULOSE (REFRESH PLUS) TEARS 1 DROP EYE-BOTH ×2 (19:00→22:26)
--- NOTE | 2023-06-04 19:53 | PC.NURSE ---
Nursing Care Hours: [id number] Pt this shift calm and cooperative, oriented to self, place, month, and situation. Fatigued. Requiring 1L NC to keep above 91%. LS crackles and rhonchi. Productive moist cough, mucus is cream-brown in color and thick, pt able to expel mucus intermittently. IS 500, PEP x4 with VS. Needing encouragement to eat and drink. Does prefer orange juice and Ensure clears if presented as fruit juice. Incontinent void x2. No c/o nausea or pain. Up to chair and toilet with pivot transfers. Pt needing breaks and reminders to take deeper breaths before transfers as pt gets fatigued. R leg edematous. Pt spouse requests HUGO be left off. When newspaper writer asked about reason, spouse states that pt is prone to blood clots and that the pressure would cause more blood clots. Spouse educated on rationale for TEDS verbally and with print out care notes. Pt spouse continues to decline d/t history of swelling above the TEDs. Merchandise Team Manager then suggested thigh high TEDs but spouse still hesitant. Pt c/o buring and watery eyes, Refresh drops given. R nare scant blood, attempt to use humidifier tent but pt can not tolerate it on face and masks keeps falling to floor if left near face. Removed IV from L hand for comfort during transfers and d/t accessed port.
[2023-06-04 19:58] LABS: Cortisol 0 Min 11.7 ug/dL; Cortisol, Serum 11.6 ug/dL
[2023-06-04 19:58] LABS: Cortisol, Serum 7.4 ug/dL
[2023-06-04] MEDS: MIRTAZAPINE 15 MG TABLET 7.5 MG PO (20:10)
[2023-06-04] MEDS: PREGABALIN 50 MG CAPSULE PO (21:04)
[2023-06-05] VITALS (8 sets, daily range): BP systolic 115–172; BP diastolic 48–70; PULSE 77–94; RESP 16–26; TEMP 36.3–37.5; O2SAT 89–95
[2023-06-05 06:31] LABS: Basophils Percent Auto 0.5 % (0.0-3.0); Eosinophils Percent Auto 0.8 % (0.0-7.0); Hemoglobin* 9.4 gm/dL (12.0-16.0); Immature Granulocytes Pct Auto 0.3 %; Lymphocytes Percent Auto 16.6 % (20-44); Mean Corpuscular HGB Conc 30 gm/dL (32-36); Mean Corpuscular Hemoglobin 31 pg (26-34); Mean Corpuscular Volume 103 fL (80-100); Monocytes Percent Auto 9.8 % (0.0-11.0); Platelet Count* 90 K/uL (140-440); RDW Coefficient of Variation % 16.3 % (11.5-15.5); White Blood Count* 3.79 K/uL (4.50-11.00)
[2023-06-05 06:35] LABS: HCO3 VBG 31 mmol/L (21-28); PCO2 VBG 57 mmHG (40-50); PO2 VBG 41.6 mmHG (25-47); pH VBG 7.342 (7.32-7.43)
[2023-06-05 06:45] LABS: Slide Review Reflex No
--- NOTE | 2023-06-05 06:54 | PC.NURSE ---
END OF SHIFT NOTE: PT PLEASANT AND COOPERATIVE WITH CARES. A&O TO SELF. HX OF DEMENTIA. DENIES CP, SOB, N/V. PT T&R DURING HS WITH PILLOWS FOR OFFLOADING. VSS WITH AEROSOL MASK ON WITH 5L FiO2 28% HUMIDITY; AFEBRILE. PT WITH WEAK, MOIST, PRODUCTIVE COUGH (ENCOURAGE PT TO SPIT OUT PHLEGM). INCONTINENT OF BLADDER. BED ALARM ON AND CALL LIGHT WITHIN PT?S REACH.?
[2023-06-05 06:59] LABS: Chloride* 106 mmol/L (96-114); Sodium* 139 mmol/L (135-149)
[2023-06-05 07:01] LABS: Creatinine* 0.7 mg/dL (0.5-1.5); Estimated Glomerular Filt Rate 87 ml/min
[2023-06-05 07:02] LABS: Anion Gap 3 mEq/L (7-15); Blood Urea Nitrogen* 20 mg/dL (7-30); Calcium* 8.2 mg/dL (8.4-10.6); Carbon Dioxide* 30 mmol/L (20-32); Glucose* 82 mg/dL (60-115); Phosphorus* 2.4 mg/dL (2.5-4.5)
[2023-06-05] MEDS: IPRAT-ALBUT 0.5-2.5 MG/3 ML NEB 1 NEB IH ×4 (09:37→20:16)
[2023-06-05] MEDS: guaiFENesin 600 MG TAB.ER.12H 1200 MG PO ×2 (09:42→20:17)
[2023-06-05] MEDS: CYANOCOBALAMIN (VITAMIN B-12) 500 MCG TABLET 1000 MCG PO (09:42)
[2023-06-05] MEDS: carvediloL 6.25 MG TABLET PO ×2 (09:42→20:18)
[2023-06-05] MEDS: MAGNESIUM OXIDE 400 MG TABLET PO (09:43)
[2023-06-05] MEDS: BUDESONIDE 0.5 MG/2ML NEB NEB ×2 (09:43→20:39)
[2023-06-05] MEDS: allopurinoL 300 MG TABLET PO (09:43)
[2023-06-05] MEDS: SODIUM CHLORIDE 0.9 % (FLUSH) 10 ML SYRINGE 5 ML IVF ×2 (09:44→20:18)
--- NOTE | 2023-06-05 13:08 | CRLHL7_ITS ---
For Patients: As a result of the Cures Act, medical imaging exams and procedure reports are released immediately into your electronic medical record. You may view this report before your referring provider. If you have questions, please contact your health care provider. INDICATION: Hypoxia, cough, COVID. TECHNIQUE: Chest 1 views. COMPARISON: 06/02/2023 CT and radiographs. FINDINGS: Right IJ single-lumen port tip in the lower SVC. Unchanged enlarged cardiac silhouette with mitral annular calcifications and atherosclerotic aortic calcifications. Lungs are hypoinflated with bronchovascular crowding. Increased bibasilar airspace opacities with probable small left pleural effusion. No pneumothorax. No acute osseous abnormality. IMPRESSION: Hypoinflated lungs with increased bibasilar airspace opacities, which may represent atelectasis due to underinflation, aspiration or developing pneumonia. Dictated by Orquidea Sharif MD @ 06/06/2023 7:32:19 AM (Electronically Signed)
--- NOTE | 2023-06-05 14:16 | PM.IMPN1 ---
Progress Note: A&P Assessment and plan (1) COVID-19: Problem details: Clinically still appears to have COVID illness with respiratory illness and profound weakness. dx 05/22 - started on paxlovid. admitted 05/24 to [facility] for hypoxia. given 3 days of remdesivir. as of 06/04 - day 14 of Covid - Status: Acute (2) Acute on chronic hypoxic respiratory failure: Problem details: - mucus plugging and hx of COPD in setting of subacute covid-19. likely represents a rebound covid 19 experience after paxlovid therapy. - no covid specific therapies - continue oxygen support, nebs (adding saline to combivent), Aerobika, bedside incentive spirometer -mild hypercapnia overnight. follow clinically. Status: Acute (3) Acute anemia: Problem details: -2/2 chronic disease. stable. no evidence of ABLA. dramatic shift from summer 2022 baseline. given overall weakness and debility - will transfuse 1 unit prbcs. 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 Wheel-chair bound Status: Acute (7) Chronic kidney disease, stage 3b: Problem details: At baseline Status: Acute (8) Pancytopenia: Problem details: Due to underlying multiple myeloma Status: Acute (9) Multiple myeloma: Problem details: Dxed 07/2010, s/p autologous stem cell transplant 02/2011, chemotherapy started at [facility] 2012. Not in remission. Followed by [facility] hematology Status: Acute (10) Frailty syndrome in geriatric patient: Problem details: - D/Dx: recent COVID, evolving multiple myeloma, evolving dementia, subacute anemia, CKD, polypharmacy, hypoxia, chronic adrenal insufficiency, urinary tract infection - assess and treat acute on chronic hypoxic respiratory failure as noted above - support with O2, monitor CBC and consider irradiated PRBC transfusion if warranted, such as Hg < 7, decrease dose of meds or stop meds if appropriate, monitor cortisol level now and cortisol and ACTH level in the morning to exclude adrenal insufficiency, urinalysis and urine culture - PT and OT consult - As recently as patient's last hospitalization, she informed me of her desire for full resuscitation and today (06/02/23) her reiterates this Status: Acute (11) Polypharmacy: Problem details: - hold unnecessary Rx, including melatonin - given her hypersomnolence, will hold off on her acyclovir and fluconazole prophylaxis meds for now and monitor - decrease dose of pregabalin from 75 mg to 50 mg nightly Status: Acute (12) Altered mental status: Problem details: Patient has a longstanding history of recurrent spells of lethargy, not eating, fatigue, malaise and weakness. This clearly occurs with her acute illness and hospitalizations. Her mental status today is improved. Weakness is worse today Status: Acute Plan Continue in hospital for ongoing evaluation management of COVID illness, hypoxia, weakness. Time Spent With Patient Total time spent: Total time spent today is 55 minutes, 45 minutes in coordination of care discussing with patient and other providers ongoing evaluation management of COVID, hypoxia and weakness Subjective Date Seen: 06/05/23 Interval history: Jennifer Medrano is a 82 year old woman presents with her to the emergency department for further assessment of recurrent, worsening cough and hypoxia. Patient was admitted and treated at [facility] from 24 May through 05/27/2023 due to new diagnosis of COVID-19, acute on chronic hypoxic respiratory failure in association with the same, increasing frailty. In the outpatient setting she was started on Paxlovid for treatment of COVID-19. Received 2 doses maximum before she presented to the hospital on 05/24/2023. In-hospital she received 3 days of remdesivir IV. Her hypoxic respiratory failure improve promptly on admission to the hospital. Her condition was back to baseline before she was discharged and return home. informs me that she was doing well for the 1st 2-3 days at home. Subsequently she started to have a loose sounding cough that seemed to originate in her throat and she was not able to clear the loose secretions from her throat. Was seen by her primary care physician, Dr. Roberts, on the day that this set of symptoms started, 05/30/2023. The plan was that her would continue to try to help her at home with use of the Aerobika device and the bedside incentive spirometry device in addition to her other pulmonary medications. They attempted to do so with only minimal success because the patient slept most of the day, and thus in actuality they hardly utilized the recommended treatments at all. Given that her condition did not improve and her room air oxygen saturations were sometimes dropping into the mid 80% range at home, her opted to bring her into the emergency department for further assessment. Patient's dementia is such that it is difficult to trust all of her answers. For what it is worth, she indicates she has not been dyspneic. She acknowledges the cough. She indicates that is too difficult for her to clear her throat as much as she tries. Acknowledges weakness and hypersomnolence. Sleeping much of the day now. Patient and deny fevers, rigors, diaphoresis. She slept much of the day. Would awaken and eat regularly. Is on a regular diet. Not on a modified diet. No obvious aspiration or coughing with eating or drinking. Became increasingly weak at home over the last 2-3 days. Ordinarily utilizes a wheelchair for locomotion due to her post-polio syndrome. Over the last 2-3 days she has required help with all of her ADLs except for eating. She could feed herself after food prep and setup. Required maximum assist of 1 for any and all transfers from bed to bedside commode and back, to the point that she was only carrying this out 3 times a day at the most due to her increased weakness. Therapy nursing staff feel the patient is weaker today than yesterday. Patient has no new concerns today. Exam Narrative: Exam Narrative: She is alert. Disoriented to her circumstances and unable to give significant history. She is on 2 L of oxygen per nasal cannula and breathing is unlabored. Respirations show bibasilar crackles with no wheezing or consolidation. Cardiovascular: S1, S2, regular rate and rhythm. Abdomen: Bowel sounds active. Abdomen is soft without tenderness. She has equal strength in both upper extremities and left lower extremity. Right lower extremity is quite weak. Unable to lift her leg off the recliner chair unable to flex or extend her ankle. 2+ edema in the right ankle. Const: Vital Signs, click to edit/add: Vital Signs - 24 hr 06/04/23 15:00 06/04/23 15:00 06/04/23 15:00 Temperature 98.9 F Pulse Rate [Pulse Oximeter] 84 84 Respiratory Rate 20 20 Blood Pressure [Ri ght Arm] 132/65 Pulse Oximetry 93 93 Oxygen Delivery Me thod Nasal Cannula Oxygen Flow Rate 1 Fraction of Inspir ed Oxygen 06/04/23 15:00 06/04/23 19:50 06/04/23 19:50 Temperature 98.7 F Pulse Rate [Pulse Oximeter] 85 Respiratory Rate 20 20 Blood Pressure [Ri ght Arm] 129/57 L Pulse Oximetry 93 90 90 Oxygen Delivery Me thod Nasal Cannula Nasal Cannula Oxygen Flow Rate 1 1 Fraction of Inspir ed Oxygen 06/04/23 19:50 06/04/23 19:50 06/04/23 23:00 Temperature 97.9 F Pulse Rate [Pulse Oximeter] 85 86 Respiratory Rate 20 20 20 Blood Pressure [Ri ght Arm] 119/57 L Pulse Oximetry 90 90 Oxygen Delivery Me thod Nasal Cannula Aerosol Mask Oxygen Flow Rate 1 5 Fraction of Inspir ed Oxygen 06/05/23 05:30 06/05/23 07:00 06/05/23 07:00 Temperature 98.3 F 97.4 F L Pulse Rate [Pulse Oximeter] 91 94 Respiratory Rate 26 H 18 Blood Pressure [Ri ght Arm] 123/48 L 172/70 H Pulse Oximetry 90 90 90 Oxygen Delivery Me thod Aerosol Mask Aerosol Mask Oxygen Flow Rate 5 5 Fraction of Inspir ed Oxygen 0.28 30 06/05/23 07:00 06/05/23 07:00 06/05/23 11:00 Temperature 98.7 F Pulse Rate [Pulse Oximeter] 94 77 Respiratory Rate 22 22 20 Blood Pressure [Ri ght Arm] 144/62 H Pulse Oximetry 89 95 Oxygen Delivery Me thod Aerosol Mask Nasal Cannula Oxygen Flow Rate 5 2 Fraction of Inspir ed Oxygen 30 Documenting provider has reviewed patient's vital signs: yes Labs Labs: Laboratory Results - last 24 hr 06/02/23 06/03/23 06/05/23 19:10 06:22 06:18 WBC 3.79 L RBC 3.00 L Hgb 9.4 L Hct 31.0 L MCV 103 H MCH 31 MCHC 30 L RDW Coeff of Ambreen 16.3 H Plt Count 90 L Neut % (Auto) 72.0 Lymph % (Auto) 16.6 L [place] % (Auto) 9.8 Eos % (Auto) 0.8 Baso % (Auto) 0.5 Neut # (Auto) 2.70 Lymph # (Auto) 0.60 L [place] # (Auto) 0.40 Eos # (Auto) 0.00 Baso # (Auto) 0.00 Abs Immat Gran (auto) 0.00 Imm/Tot Granulo (auto) 0.3 VBG pH 7.342 VBG pCO2 57 H VBG pO2 41.6 VBG HCO3 31 H Sodium 139 Potassium 4.0 Chloride 106 Carbon Dioxide 30 Anion Gap 3 L BUN 20 Creatinine 0.7 Estimated Creat Clear 34.90 Estimated GFR 87 Glucose 82 Calcium 8.2 L Phosphorus 2.4 L Albumin 3.0 L Cortisol 7.4 11.6
[2023-06-05] MEDS: RIVAROXABAN 10 MG TABLET 20 MG PO (17:56)
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
[2023-06-05] MEDS: MIRTAZAPINE 15 MG TABLET 7.5 MG PO (20:16)
[2023-06-05] MEDS: PREGABALIN 50 MG CAPSULE PO (20:17)
--- NOTE | 2023-06-05 22:08 | PC.NURSE ---
VSS, sats 93% on 2L NC. Denies pain. LS diminished, coarse crackles in bases. Ate 75% of dinner, encouraged fluids. Wet brief x2, no BM. Last BM 06/03. Up in chair most of evening. Right leg/foot edematous & tender- red, blanchable area noticed on 2nd toe. Port accessed-heparin locked. here most of evening- frustrated with pt not eating, not keeping pulse ox, and oxygen on. Will continue to monitor, follow POC, and keep pt and family updated. Frannie Zimmerman RN
[2023-06-06] VITALS (9 sets, daily range): BP systolic 99–135; BP diastolic 46–63; PULSE 68–83; RESP 16–24; TEMP -11.9–38.1; O2SAT 89–96
[2023-06-06] MEDS: ACETAMINOPHEN 325 MG TABLET 650 MG PO ×2 (02:36→19:03)
--- NOTE | 2023-06-06 03:00 | PC.NURSE ---
Pt pleasant cooperative all night. Reporting zero pain. @ 0230 Pt Temp was 100.5 - Tylenol given PRN. Pt on 2L NC over night. Sats Dip down to 80 when she removes.
[2023-06-06 07:13] LABS: Basophils Percent Auto 0.4 % (0.0-3.0); Eosinophils Percent Auto 1.3 % (0.0-7.0); Hematocrit 27.5 % (33.0-51.0); Hemoglobin* 8.4 gm/dL (12.0-16.0); Lymphocytes Percent Auto 25.4 % (20-44); Mean Corpuscular HGB Conc 31 gm/dL (32-36); Mean Corpuscular Hemoglobin 32 pg (26-34); Mean Corpuscular Volume 103 fL (80-100); Monocytes Percent Auto 14.7 % (0.0-11.0); Neutrophils Percent Auto 58.2 % (42.0-72.0); Platelet Count* 90 K/uL (140-440); RDW Coefficient of Variation % 16.2 % (11.5-15.5); Red Blood Count 2.67 m/uL (4.00-5.20); Slide Review Reflex No; White Blood Count* 2.32 K/uL (4.50-11.00)
[2023-06-06 07:23] LABS: Chloride* 106 mmol/L (96-114); Potassium* 3.6 mmol/L (3.6-5.1); Sodium* 139 mmol/L (135-149)
[2023-06-06 07:26] LABS: Anion Gap 1 mEq/L (7-15); Blood Urea Nitrogen* 21 mg/dL (7-30); Carbon Dioxide* 32 mmol/L (20-32); Creatinine* 0.8 mg/dL (0.5-1.5); Estimated Glomerular Filt Rate 74 ml/min
[2023-06-06 07:27] LABS: Calcium* 7.6 mg/dL (8.4-10.6); Glucose* 85 mg/dL (60-115)
[2023-06-06 07:29] LABS: C Reactive Protein* 6.2 mg/dL (0.5-1.0)
[2023-06-06 09:11] LABS: Appearance Urine Cloudy (Clear); Bilirubin Urine Negative (Negative); Blood Urine 2+ (Negative); Color Urine Yellow (Yellow); Glucose Urine Negative (Negative); Ketones Urine Negative (Negative); Leukocyte Esterase Urine 3+ (Negative); Nitrite Urine Negative (Negative); Protein Urine 2+ (Negative); Specific Gravity Urine 1.025 (1.000-1.030); Urobilinogen Urine 0.2 (0.2-1.0); pH Urine 6.5 (5.0-8.5)
[2023-06-06] MEDS: BUDESONIDE 0.5 MG/2ML NEB NEB ×2 (09:17→20:05)
[2023-06-06] MEDS: CYANOCOBALAMIN (VITAMIN B-12) 500 MCG TABLET 1000 MCG PO (09:17)
[2023-06-06] MEDS: carvediloL 6.25 MG TABLET PO ×2 (09:17→20:04)
[2023-06-06] MEDS: allopurinoL 300 MG TABLET PO (09:17)
[2023-06-06] MEDS: guaiFENesin 600 MG TAB.ER.12H 1200 MG PO ×2 (09:17→20:04)
[2023-06-06] MEDS: IPRAT-ALBUT 0.5-2.5 MG/3 ML NEB 1 NEB IH ×3 (09:17→20:04)
[2023-06-06] MEDS: MAGNESIUM OXIDE 400 MG TABLET PO (09:17)
[2023-06-06 09:52] LABS: WBC Urine >100 (0-5)
[2023-06-06 09:53] LABS: Bacteria Urine Moderate; Squamous Epithelial Cell Urine Few (None-Few)
--- NOTE | 2023-06-06 10:17 | P.IMPN_ITS ---
Progress Note: A&P Assessment and plan (1) Pneumonia: Problem details: Fever and hypoxia. Indeterminate chest x-ray. Will treat as pneumonia. Recent hospitalizations put her at high risk for complications. I favor aspiration pneumonia as the most likely explanation. She is now 2 weeks into the diagnosis of COVID. That could also be an explanation for her fever and hypoxia Status: Acute (2) COVID-19: Problem details: Clinically still appears to have COVID illness with respiratory illness and profound weakness. dx 05/22 - started on paxlovid. admitted 05/24 to [place] for hypoxia. given 3 days of remdesivir. as of 06/04 - day 14 of Covid - Status: Acute (3) Acute on chronic hypoxic respiratory failure: Problem details: - mucus plugging and hx of COPD in setting of subacute covid-19. likely represents a rebound covid 19 experience after paxlovid therapy. - no covid specific therapies - continue oxygen support, nebs (adding saline to combivent), Aerobika, bedside incentive spirometer -mild hypercapnia overnight. follow clinically. Status: Acute (4) Acute anemia: Problem details: -2/2 chronic disease. stable. no evidence of ABLA. dramatic shift from summer 2022 baseline. given overall weakness and debility - will transfuse 1 unit prbcs. -hgb >9 following transfusion of 1 unit Status: Acute (5) Pancytopenia: Problem details: Due to underlying multiple myeloma and treatment of myeloma. Functionally immunosuppressed. Status: Acute (6) Dementia: Problem details: At [address] [place] [address], SLUMS score 17/30 and dementia was diagnosed Status: Acute (7) Common variable hypogammaglobulinemia: Problem details: due to multiple myeloma. Functionally immunosuppressed. 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 Wheel-chair bound. Flaccid right leg Status: Acute (9) Chronic kidney disease, stage 3b: Problem details: At baseline Status: Acute (10) Multiple myeloma: Problem details: Dxed 07/2010, s/p autologous stem cell transplant 02/2011, chemotherapy started at [place] 2012. Not in remission. Followed by [place] [facility]ology Status: Acute (11) Frailty syndrome in geriatric patient: Problem details: - D/Dx: recent COVID, evolving multiple myeloma, evolving dementia, subacute anemia, CKD, polypharmacy, hypoxia, chronic adrenal insufficiency, urinary tract infection - assess and treat acute on chronic hypoxic respiratory failure as noted above - support with O2, monitor CBC and consider irradiated PRBC transfusion if warranted, such as Hg < 7, decrease dose of meds or stop meds if appropriate, monitor cortisol level now and cortisol and ACTH level in the morning to exclude adrenal insufficiency, urinalysis and urine culture - PT and OT consult - As recently as patient's last hospitalization, she informed me of her desire for full resuscitation and today (06/02/23) her reiterates this Status: Acute (12) Polypharmacy: Problem details: - hold unnecessary Rx, including melatonin - given her hypersomnolence, will hold off on her acyclovir and fluconazole p rophylaxis meds for now and monitor - decrease dose of pregabalin from 75 mg to 50 mg nightly Status: Acute (13) Altered mental status: Problem details: Patient has a longstanding history of recurrent spells of lethargy, not eating, fatigue, malaise and weakness. This clearly occurs with her acute illness and hospitalizations. Her mental status today is improved. Weakness is worse today Status: Acute Plan Continue in-hospital monitoring and treating pneumonia, weakness, pancytopenia Time Spent With Patient Total time spent: Total time spent today is 50 minutes, 30 minutes in coordination of care discussing with other providers ongoing evaluation management of pneumonia and weakness. Subjective Date Seen: 06/06/23 Interval history: Jennifer Medrano is a 82 year old woman presents with her to the emergency department for further assessment of recurrent, worsening cough and hypoxia. Patient was admitted and treated at [facility] from 24 May through 05/27/2023 due to new diagnosis of COVID-19, acute on chronic hypoxic respiratory failure in association with the same, increasing frailty. In the outpatient setting she was started on Paxlovid for treatment of COVID-19. Received 2 doses maximum before she presented to the hospital on 05/24/2023. In- hospital she received 3 days of remdesivir IV. Her hypoxic respiratory failure improve promptly on admission to the hospital. Her condition was back to baseline before she was discharged and return home. informs me that she was doing well for the 1st 2-3 days at home. Subsequently she started to have a loose sounding cough that seemed to originate in her throat and she was not able to clear the loose secretions from her throat. Was seen by her primary care physician, Dr. Roberts, on the day that this set of symptoms started, 05/30/2023. The plan was that her would continue to try to help her at home with use of the Aerobika device and the bedside incentive spirometry device in addition to her other pulmonary medications. They attempted to do so with only minimal success because the patient slept most of the day, and thus in actuality they hardly utilized the recommended treatments at all. Given that her condition did not improve and her room air oxygen saturations were sometimes dropping into the mid 80% range at home, her opted to bring her into the emergency department for further assessment. Patient's dementia is such that it is difficult to trust all of her answers. For what it is worth, she indicates she has not been dyspneic. She acknowledges the cough. She indicates that is too difficult for her to clear her throat as much as she tries. Acknowledges weakness and hypersomnolence. Sleeping much of the day now. Patient and deny fevers, rigors, diaphoresis. She slept much of the day. Would awaken and eat regularly. Is on a regular diet. Not on a modified diet. No obvious aspiration or coughing with eating or drinking. Became increasingly weak at home over the last 2-3 days. Ordinarily utilizes a wheelchair for locomotion due to her post-polio syndrome. Over the last 2-3 days she has required help with all of her ADLs except for eating. She could feed herself after food prep and setup. Required maximum assist of 1 for any and all transfers from bed to bedside commode and back, to the point that she was only carrying this out 3 times a day at the most due to her increased weakness. She reports feeling well this morning. Patient has no new concerns today. Exam Narrative: Exam Narrative: She is alert and appears in no distress. She is breathing easily on oxygen by nasal cannula. She is not oriented to her circumstances. Respirations with bibasilar crackles which are better than yesterday. She remains with a very weak cough and is unable to clear the rhonchus breathing effectively. Cardiovascular: S1, S2, regular rate and rhythm. Abdomen is soft without tenderness or mass right lower extremity paresis is stable. She moves all 3 other extremities well Const: Vital Signs, click to edit/add: Vital Signs - 24 hr 06/05/23 11:00 06/05/23 15:00 06/05/23 15:00 Temperature 98.7 F 98.0 F Pulse Rate [Pulse Oximeter] 77 80 80 Respiratory Rate 20 16 16 Blood Pressure [Ri ght Arm] 144/62 H 115/49 L Pulse Oximetry 95 93 Oxygen Delivery Me thod Nasal Cannula Aerosol Mask Oxygen Flow Rate 2 5 Fraction of Inspir ed Oxygen 28 06/05/23 15:00 06/05/23 15:00 06/05/23 18:40 Temperature 98.9 F Pulse Rate [Pulse Oximeter] 83 Respiratory Rate 16 16 Blood Pressure [Ri ght Arm] 117/50 L Pulse Oximetry 93 93 93 Oxygen Delivery Me thod Aerosol Mask Nasal Cannula Oxygen Flow Rate 5 Fraction of Inspir ed Oxygen 28 06/05/23 23:21 06/05/23 23:22 06/05/23 23:23 Temperature 99.5 F Pulse Rate [Pulse Oximeter] 83 83 Respiratory Rate 16 16 Blood Pressure [Ri ght Arm] 135/59 L Pulse Oximetry 94 94 Oxygen Delivery Me thod Nasal Cannula Oxygen Flow Rate 1.5 Fraction of Inspir ed Oxygen 20 06/05/23 23:23 06/06/23 02:36 06/06/23 02:39 Temperature 100.5 F H 10.5 F L Pulse Rate [Pulse Oximeter] 83 Respiratory Rate 16 16 Blood Pressure [Ri ght Arm] 135/63 Pulse Oximetry 94 93 Oxygen Delivery Me thod Nasal Cannula Nasal Cannula Oxygen Flow Rate 1.5 2 Fraction of Inspir ed Oxygen 20 06/06/23 07:00 06/06/23 07:00 06/06/23 07:00 Temperature Pulse Rate [Pulse Oximeter] 83 Respiratory Rate 22 22 Blood Pressure [Ri ght Arm] Pulse Oximetry 89 89 Oxygen Delivery Me thod Nasal Cannula Oxygen Flow Rate 2 Fraction of Inspir ed Oxygen 06/06/23 07:00 Temperature 97.5 F L Pulse Rate [Pulse Oximeter] 71 Respiratory Rate 22 Blood Pressure [Ri ght Arm] 111/47 L Pulse Oximetry 89 Oxygen Delivery Me thod Nasal Cannula Oxygen Flow Rate 2 Fraction of Inspir ed Oxygen Documenting provider has reviewed patient's vital signs: yes Labs Labs: Laboratory Results - last 24 hr 06/06/23 06/06/23 06:55 09:03 WBC 2.32 L RBC 2.67 L Hgb 8.4 L Hct 27.5 L MCV 103 H MCH 32 MCHC 31 L RDW Coeff of Ambreen 16.2 H Plt Count 90 L Neut % (Auto) 58.2 Lymph % (Auto) 25.4 [place] % (Auto) 14.7 H Eos % (Auto) 1.3 Baso % (Auto) 0.4 Neut # (Auto) 1.40 L Lymph # (Auto) 0.60 L [place] # (Auto) 0.30 Eos # (Auto) 0.00 Baso # (Auto) 0.00 Abs Immat Gran (auto) 0.00 Imm/Tot Granulo (auto) 0.0 Sodium 139 Potassium 3.6 Chloride 106 Carbon Dioxide 32 Anion Gap 1 L BUN 21 Creatinine 0.8 Estimated Creat Clear 34.90 Estimated GFR 74 Glucose 85 Calcium 7.6 L C-Reactive Protein 6.2 H Urine Color Yellow Urine Appearance Cloudy A Urine pH 6.5 Ur Specific [place] 1.025 Urine Protein 2+ A Urine Glucose (UA) Negative Urine Ketones Negative Urine Blood 2+ A Urine Nitrite Negative Urine Bilirubin Negative Urine Urobilinogen 0.2 Ur Leukocyte Esterase 3+ A Urine RBC 2-5 A Urine WBC >100 A Ur Squamous Epith Cells Few Urine Bacteria Moderate A
[2023-06-06] MEDS: PIPERACILLIN/TAZOBACTAM 3.375 GM in 0.9 % SODIUM CHLORIDE Mini-bag 100 ML IVPB (10:25)
--- NOTE | 2023-06-06 14:14 | REH.PT ---
Elastic Attacher Zigzag attempted to see therapist twice this PM. Pt soundly sleeping both times. Will attempt to see tomorrow.
[2023-06-06] MEDS: PIPERACILLIN/TAZOBACTAM 2.25 GM in 0.9 % SODIUM CHLORIDE Mini-bag 100 ML IVPB ×2 (15:20→20:03)
[2023-06-06] MEDS: RIVAROXABAN 10 MG TABLET 20 MG PO (17:02)
--- NOTE | 2023-06-06 19:38 | PC.NURSE ---
Nursing Care Hours: [id number] Pt this shift lethargic and fatigued, napping most of day. Octaviano lift used for transfers. Turn and reposition Q2-3H while in chair and bed. Difficult to arose to use nebulizer treatments. Moist productive cough has decreased since Monday 06/04. Spo2 titrate down from 2L to 1L. Straight cath for a urine sample, sent to lab. Attempt to flush port cath but leaking from catheter hub. Re-accessed port with new system and dressing change by Monica WORTHY, mortgage or loan underwriter observed. ABX therapy started. Incontinent void changed x2, barrier cream applied. Skin intact. No BM. Bed bath given and gown changed. Refusing meals but Ensure clear taken x2. At end of shift, mortgage or loan underwriter went in to change brief and reposition, pt acting suspicious and making odd statements, see behavior comment in work list. Also c/o generalized pain for first time this shift, 04/06, tylenol given.
[2023-06-06] MEDS: SODIUM CHLORIDE 0.9 % (FLUSH) 10 ML SYRINGE 5 ML IVF (20:04)
[2023-06-06] MEDS: PREGABALIN 50 MG CAPSULE PO (20:04)
[2023-06-06] MEDS: MIRTAZAPINE 15 MG TABLET 7.5 MG PO (20:04)
[2023-06-07] VITALS (8 sets, daily range): BP systolic 115–146; BP diastolic 48–67; PULSE 71–85; RESP 18–24; TEMP 36.6–36.9; O2SAT 90–94; BMI 29.6
[2023-06-07] MEDS: ALBUTEROL SULFATE 2.5 MG/3 ML VIAL.NEB NEB ×2 (01:54→06:06)
[2023-06-07] MEDS: PIPERACILLIN/TAZOBACTAM 2.25 GM in 0.9 % SODIUM CHLORIDE Mini-bag 100 ML IVPB ×4 (01:54→20:31)
[2023-06-07] MEDS: 0.9 % SODIUM CHLORIDE 1000 ml 1,000 ML 30 ML IV ×2 (02:48→17:46)
[2023-06-07] MEDS: ACETAMINOPHEN 325 MG TABLET 650 MG PO (06:05)
--- NOTE | 2023-06-07 07:28 | PC.NURSE ---
19-07: pleasant and cooperative. Incont. T&R. Right leg elevated on pillow, foot propped up with pillows/blankets. Lotion applied to dry skin. Titrated O2 to RA at 0400, maintaining 88-91%. Prn neb given x 2, encouraging IS/Aerobika use. Pt able to cough up small amount of sputum.?Pt putting in great effort and appears to do well with encouragement & positive feedback (increased O2 saturations with deep breathing exercises).
[2023-06-07 08:02] LABS: Chloride* 107 mmol/L (96-114); Potassium* 3.4 mmol/L (3.6-5.1); Sodium* 139 mmol/L (135-149)
[2023-06-07 08:05] LABS: Creatinine* 0.8 mg/dL (0.5-1.5); Estimated Glomerular Filt Rate 74 ml/min
[2023-06-07 08:06] LABS: Anion Gap 4 mEq/L (7-15); Blood Urea Nitrogen* 17 mg/dL (7-30); Calcium* 7.7 mg/dL (8.4-10.6); Carbon Dioxide* 28 mmol/L (20-32); Glucose* 93 mg/dL (60-115)
[2023-06-07 08:08] LABS: C Reactive Protein* 5.2 mg/dL (0.5-1.0)
[2023-06-07] MEDS: BUDESONIDE 0.5 MG/2ML NEB NEB ×2 (08:44→20:33)
[2023-06-07] MEDS: IPRAT-ALBUT 0.5-2.5 MG/3 ML NEB 1 NEB IH ×4 (08:44→20:36)
[2023-06-07] MEDS: CYANOCOBALAMIN (VITAMIN B-12) 500 MCG TABLET 1000 MCG PO (08:45)
[2023-06-07] MEDS: allopurinoL 300 MG TABLET PO (08:45)
[2023-06-07] MEDS: carvediloL 6.25 MG TABLET PO ×2 (08:45→20:30)
[2023-06-07] MEDS: MAGNESIUM OXIDE 400 MG TABLET PO (08:45)
[2023-06-07] MEDS: guaiFENesin 600 MG TAB.ER.12H 1200 MG PO ×2 (08:45→20:34)
[2023-06-07] MEDS: POTASSIUM BICARB 25 MEQ EFFERVESCENT TAB PO (08:46)
[2023-06-07] MEDS: SODIUM CHLORIDE 0.9 % (FLUSH) 10 ML SYRINGE 5 ML IVF (09:38)
[2023-06-07] MEDS: SENNOSIDES 1 TAB TABLET 2 TAB PO (09:38)
[2023-06-07 10:25] LABS: Basophils Percent Auto 1.1 % (0.0-3.0); Eosinophils Percent Auto 2.3 % (0.0-7.0); Hematocrit 28.6 % (33.0-51.0); Hemoglobin* 8.7 gm/dL (12.0-16.0); Lymphocytes Percent Auto 30.1 % (20-44); Mean Corpuscular HGB Conc 30 gm/dL (32-36); Mean Corpuscular Hemoglobin 32 pg (26-34); Mean Corpuscular Volume 104 fL (80-100); Monocytes Percent Auto 11.4 % (0.0-11.0); Neutrophils Percent Auto 55.1 % (42.0-72.0); Platelet Count* 90 K/uL (140-440); RDW Coefficient of Variation % 16.3 % (11.5-15.5); Red Blood Count 2.76 m/uL (4.00-5.20)
[2023-06-07 10:26] LABS: White Blood Count* 1.76 K/uL (4.50-11.00)
[2023-06-07 10:27] LABS: Slide Review Reflex No
--- NOTE | 2023-06-07 12:01 | PC.SOCIAL ---
Discharge planning- Phone call to pt's to discuss discharge plans. Pt's is hopeful that pt can return home with home care in place. Pt previously had PT/OT from [facility] and pt's informs he would hope they could resume with pt. Pt is not ready for discharge per MD. Provided social work phone number to and informed that social work will be in contact with him when discharge recommendations are made. Social work will follow up as needed.
--- NOTE | 2023-06-07 12:11 | P.IMPN_ITS ---
Progress Note: A&P Assessment and plan (1) Pneumonia: Problem details: Fever and hypoxia. Indeterminate chest x-ray. Will treat as pneumonia. Recent hospitalizations put her at high risk for complications. I favor aspiration pneumonia as the most likely explanation. She is now 2 weeks into the diagnosis of COVID. That could also be an explanation for her fever and hypoxia Status: Acute (2) COVID-19: Problem details: Clinically still appears to have COVID illness with respiratory illness and profound weakness. dx 05/22 - started on paxlovid. admitted 05/24 to [place] for hypoxia. given 3 days of remdesivir. as of 06/04 - day 14 of Covid - Status: Acute (3) Acute on chronic hypoxic respiratory failure: Problem details: Initially thought this was secondary to COVID. Now concern about aspiration pneumonia which she has had in the past. Status: Acute (4) Multiple myeloma: Problem details: Dxed 07/2010, s/p autologous stem cell transplant 02/2011, chemotherapy started at [place] 2012. Not in remission. Followed by [place] [facility]ology. Ongoing trial of treatment at [place] is on hold due to acute illness and recurrent hospitalization Status: Acute (5) Neutropenia: Problem details: Absolute neutrophil count down to 1000 today. She had some recovery last week when she was here for COVID infection. No recent treatment for myeloma. Continue to monitor. Status: Acute (6) Acute anemia: Problem details: Part of pancytopenia. She did receive 1 unit blood transfusion. No active bleeding. Status: Acute (7) Pancytopenia: Problem details: Due to underlying multiple myeloma and treatment of myeloma. Functionally immunosuppressed. Status: Acute (8) Dementia: Problem details: At [address] [place] [address], SLUMS score 17/30 and dementia was diagnosed Status: Acute (9) Common variable hypogammaglobulinemia: Problem details: due to multiple myeloma. Functionally immunosuppressed. 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 Flaccid right leg Status: Acute (11) Chronic kidney disease, stage 3b: Problem details: At baseline Status: Acute (12) Frailty syndrome in geriatric patient: Problem details: Acute on chronic frailty. Chronically debilitated due to dementia, post-polio, multiple myeloma and pancytopenia. Acutely debilitated by COVID, aspiration pneumonia and possibly UTI Status: Acute (13) Polypharmacy: Problem details: - hold unnecessary Rx, including melatonin - given her hypersomnolence, will hold off on her acyclovir and fluconazole prophylaxis meds for now and monitor - decrease dose of pregabalin from 75 mg to 50 mg nightly Status: Acute (14) Altered mental status: Problem details: Patient has a longstanding history of recurrent spells of lethargy, not eating, fatigue, malaise and weakness. This clearly occurs with her acute illness and hospitalizations. Her mental status today is improved. Weakness persists Status: Acute (15) UTI (urinary tract infection): Problem details: Urine culture from 06/06/2023 growing Gram-negative rods Status: Acute Plan Continue in hospital for evaluation and treatment of acute on chronic respiratory failure, ongoing monitoring of pancytopenia, immunosuppression and weakness. Time Spent With Patient Total time spent: Total time spent today is 60 minutes, 45 minutes in coordination of care discussing with patient's and other providers ongoing evaluation management of pneumonia and weakness and myeloma Subjective Date Seen: 06/07/23 Interval history: Jennifer Medrano is a 82 year old woman presents with her to the emergency department for further assessment of recurrent, worsening cough and hypoxia. Patient was admitted and treated at [facility] from 24 May through 05/27/2023 due to new diagnosis of COVID-19, acute on chronic hypoxic respiratory failure in association with the same, increasing frailty. In the outpatient setting she was started on Paxlovid for treatment of COVID-19. Received 2 doses maximum before she presented to the hospital on 05/24/2023. In- hospital she received 3 days of remdesivir IV. Her hypoxic respiratory failure improve promptly on admission to the hospital. Her condition was back to baseline before she was discharged and return home. informs me that she was doing well for the 1st 2-3 days at home. Subsequently she started to have a loose sounding cough that seemed to originate in her throat and she was not able to clear the loose secretions from her throat. Was seen by her primary care physician, Dr. Roberts, on the day that this set of symptoms started, 05/30/2023. The plan was that her would continue to try to help her at home with use of the Aerobika device and the bedside incentive spirometry device in addition to her other pulmonary medications. They attempted to do so with only minimal success because the patient slept most of the day, and thus in actuality they hardly utilized the recommended treatments at all. Given that her condition did not improve and her room air oxygen saturations were sometimes dropping into the mid 80% range at home, her opted to bring her into the emergency department for further assessment. Patient has dementia and is not able to give much detail about the course of events. This is obtained from her and the medical record. She has had history of recurrent hospitalizations with aspiration pneumonia. Associated with these episodes she has had hypoxia, profound weakness including a weak cough and profound lethargy. With time and antibiotic therapy she has recovered from these episodes in the past. June 06 she was noted to have had a fever overnight. Because of the new fe natasha, persisting cough and abnormal chest x-ray blood and urine cultures were obtained. She was started on piperacillin tazobactam. She reports feeling well this morning. Patient has no new concerns today. She is not having a fever. She is off oxygen this morning. She is not oriented to her circumstances. Exam Narrative: Exam Narrative: She is alert and not oriented to circumstances at all. Respirations with a few basilar crackles. A week, wet cough is noted. She is unable to bring up her sputum. Cardiovascular: S1, S2, regular rate and rhythm. Abdomen is soft without tenderness or mass. Extremities unchanged. No significant new edema. Flaccid on the right. Const: Vital Signs, click to edit/add: Vital Signs - 24 hr 06/06/23 14:17 06/06/23 15:00 06/06/23 15:00 Temperature 97.5 F L Pulse Rate [Pulse Oximeter] 68 68 Respiratory Rate 22 22 Blood Pressure [Le ft Arm] 119/54 L Blood Pressure [Ri ght Arm] Pulse Oximetry 95 Oxygen Delivery Me thod Oxygen Flow Rate 06/06/23 15:00 06/06/23 19:00 06/06/23 23:00 Temperature 98.7 F Pulse Rate [Pulse Oximeter] 69 Respiratory Rate 22 20 Blood Pressure [Le ft Arm] Blood Pressure [Ri ght Arm] 113/56 L Pulse Oximetry 92 96 90 Oxygen Delivery Me thod Nasal Cannula Nasal Cannula Oxygen Flow Rate 1 1 06/06/23 23:00 06/06/23 23:00 06/06/23 23:37 Temperature 98.5 F Pulse Rate [Pulse Oximeter] 70 70 Respiratory Rate 24 24 24 Blood Pressure [Le ft Arm] Blood Pressure [Ri ght Arm] 102/51 L Pulse Oximetry 90 90 Oxygen Delivery Me thod Nasal Cannula Nasal Cannula Oxygen Flow Rate 1 1 06/07/23 02:26 06/07/23 08:30 06/07/23 08:30 Temperature 97.9 F Pulse Rate [Pulse Oximeter] 71 Respiratory Rate 24 22 Blood Pressure [Le ft Arm] Blood Pressure [Ri ght Arm] 115/52 L Pulse Oximetry 94 90 90 Oxygen Delivery Me thod Nasal Cannula Room Air Oxygen Flow Rate 1 0 06/07/23 08:42 Temperature 98.0 F Pulse Rate [Pulse Oximeter] 72 Respiratory Rate 22 Blood Pressure [Le ft Arm] Blood Pressure [Ri ght Arm] 122/52 L Pulse Oximetry 90 Oxygen Delivery Me thod Room Air Oxygen Flow Rate Documenting provider has reviewed patient's vital signs: yes Labs Labs: Laboratory Results - last 24 hr 06/07/23 06:20 WBC 1.76 L* RBC 2.76 L Hgb 8.7 L Hct 28.6 L MCV 104 H MCH 32 MCHC 30 L RDW Coeff of Ambreen 16.3 H Plt Count 90 L Neut % (Auto) 55.1 Lymph % (Auto) 30.1 [place] % (Auto) 11.4 H Eos % (Auto) 2.3 Baso % (Auto) 1.1 Neut # (Auto) 1.00 L Lymph # (Auto) 0.50 L [place] # (Auto) 0.20 Eos # (Auto) 0.00 Baso # (Auto) 0.00 Abs Immat Gran (auto) 0.00 Imm/Tot Granulo (auto) 0.0 Sodium 139 Potassium 3.4 L Chloride 107 Carbon Dioxide 28 Anion Gap 4 L BUN 17 Creatinine 0.8 Estimated Creat Clear 34.90 Estimated GFR 74 Glucose 93 Calcium 7.7 L C-Reactive Protein 5.2 H
--- NOTE | 2023-06-07 14:06 | REH.PT ---
Pt refused therapy this PM. Too fatigued.
[2023-06-07] MEDS: RIVAROXABAN 10 MG TABLET 20 MG PO (17:38)
--- NOTE | 2023-06-07 18:14 | PC.NURSE ---
Pt alert to self. Pt had no complaints of pain. Pt turned and repositioned in bed; Pt refused to get up to chair during shift. Pt slept from morning to midafternoon only waking when cares provided. Pt woke up and was more alert midafternoon-evening. Pt refused breakfast and lunch and agreed to eat chocolate cake for dinner.? at bedside late morning-early evening.
[2023-06-07] MEDS: PREGABALIN 50 MG CAPSULE PO (20:34)
[2023-06-07] MEDS: MIRTAZAPINE 15 MG TABLET 7.5 MG PO (20:35)
[2023-06-08] VITALS (7 sets, daily range): BP systolic 143–168; BP diastolic 46–91; PULSE 83–92; RESP 16–24; TEMP 36.6–37; O2SAT 90–95
[2023-06-08] MEDS: PIPERACILLIN/TAZOBACTAM 2.25 GM in 0.9 % SODIUM CHLORIDE Mini-bag 100 ML IVPB ×3 (02:07→13:49)
[2023-06-08] MEDS: ALBUTEROL INHALER 2 PUFF IH (03:57)
[2023-06-08] MEDS: ALBUTEROL SULFATE 2.5 MG/3 ML VIAL.NEB NEB (06:35)
--- NOTE | 2023-06-08 06:58 | PC.NURSE ---
END OF SHIFT NOTE: PT WITH ADVANCED DEMENTIA. A&O TO SELF. RIGHT CHEST PORT ACCESSED WITH NS @TKO. SPO2 REMAINED BETWEEN 87-96% ON RA DURING HS. VSS AND AFEBRILE. WHEEZES THROUGHOUT. PRN RESPIRATORY TX GIVEN. EXTRA LARGE LOOSE AND FORMED BM THIS SHIFT.
[2023-06-08 07:14] LABS: Basophils Percent Auto 0.4 % (0.0-3.0); Eosinophils Percent Auto 1.9 % (0.0-7.0); Hematocrit 29.8 % (33.0-51.0); Hemoglobin* 9.1 gm/dL (12.0-16.0); Lymphocytes Percent Auto 28.8 % (20-44); Mean Corpuscular HGB Conc 31 gm/dL (32-36); Mean Corpuscular Hemoglobin 31 pg (26-34); Mean Corpuscular Volume 100 fL (80-100); Monocytes Percent Auto 9.6 % (0.0-11.0); Neutrophils Percent Auto 59.3 % (42.0-72.0); Platelet Count* 90 K/uL (140-440); RDW Coefficient of Variation % 16.2 % (11.5-15.5); Red Blood Count 2.97 m/uL (4.00-5.20)
[2023-06-08 07:32] LABS: Chloride* 111 mmol/L (96-114); Potassium* 3.3 mmol/L (3.6-5.1); Sodium* 142 mmol/L (135-149)
[2023-06-08 07:35] LABS: Anion Gap 5 mEq/L (7-15); Carbon Dioxide* 26 mmol/L (20-32); Creatinine* 0.7 mg/dL (0.5-1.5); Estimated Glomerular Filt Rate 87 ml/min
[2023-06-08 07:36] LABS: Blood Urea Nitrogen* 11 mg/dL (7-30); Calcium* 7.7 mg/dL (8.4-10.6); Glucose* 79 mg/dL (60-115)
[2023-06-08 07:38] LABS: C Reactive Protein* 3.6 mg/dL (0.5-1.0)
[2023-06-08] MEDS: IPRAT-ALBUT 0.5-2.5 MG/3 ML NEB 1 NEB IH ×4 (08:26→21:07)
[2023-06-08] MEDS: SENNOSIDES 1 TAB TABLET 2 TAB PO (08:30)
[2023-06-08] MEDS: allopurinoL 300 MG TABLET PO (08:30)
[2023-06-08] MEDS: BUDESONIDE 0.5 MG/2ML NEB NEB ×2 (08:30→21:07)
[2023-06-08] MEDS: CYANOCOBALAMIN (VITAMIN B-12) 500 MCG TABLET 1000 MCG PO (08:30)
[2023-06-08] MEDS: guaiFENesin 600 MG TAB.ER.12H 1200 MG PO ×2 (08:30→21:06)
[2023-06-08] MEDS: MAGNESIUM OXIDE 400 MG TABLET PO (08:30)
[2023-06-08] MEDS: carvediloL 6.25 MG TABLET PO ×2 (08:35→21:06)
[2023-06-08 08:37] LABS: Slide Review Reflex No
[2023-06-08] MEDS: POTASSIUM BICARB 25 MEQ EFFERVESCENT TAB PO ×2 (12:24→13:50)
[2023-06-08] MEDS: HEPARIN 500 UNIT/5 ML SYRINGE IVF (17:45)
[2023-06-08] MEDS: SODIUM CHLORIDE 0.9 % (FLUSH) 10 ML SYRINGE 5 ML IVF (17:46)
[2023-06-08] MEDS: levoFLOXacin 500 MG TABLET PO (17:53)
[2023-06-08] MEDS: RIVAROXABAN 10 MG TABLET 20 MG PO (17:53)
--- NOTE | 2023-06-08 17:54 | PM.IMPN1 ---
Progress Note: A&P Assessment and plan (1) Pneumonia: Problem details: Fever and hypoxia. Indeterminate chest x-ray. Will treat as pneumonia. Recent hospitalizations put her at high risk for complications. I favor aspiration pneumonia as the most likely explanation. She is now 2 weeks into the diagnosis of COVID. Likely bacterial pneumonia rather than COVID. Clinically much better today Status: Acute (2) COVID-19: Problem details: Clinically still appears to have COVID illness with respiratory illness and profound weakness. dx 05/22 - started on paxlovid. admitted 05/24 to [facility] for hypoxia. given 3 days of remdesivir. as of 06/04 - day 14 of Covid - Status: Acute (3) Acute on chronic hypoxic respiratory failure: Problem details: Initially thought this was secondary to COVID. Now concern about aspiration pneumonia which she has had in the past. Off oxygen today Status: Acute (4) Multiple myeloma: Problem details: Dxed 07/2010, s/p autologous stem cell transplant 02/2011, chemotherapy started at [facility] 2012. Not in remission. Followed by [facility] hematology. Ongoing trial of treatment at [facility] is on hold due to acute illness and recurrent hospitalization Status: Acute (5) Neutropenia: Problem details: Absolute neutrophil count down to 1000 today. She had some recovery last week when she was here for COVID infection. No recent treatment for myeloma. Continue to monitor. Better today Status: Acute (6) Acute anemia: Problem details: Part of pancytopenia. She did receive 1 unit blood transfusion. No active bleeding. Status: Acute (7) Pancytopenia: Problem details: Due to underlying multiple myeloma and treatment of myeloma. Functionally immunosuppressed. Better today Status: Acute (8) Dementia: Problem details: At [address] [place] [address], SLUMS score 17/30 and dementia was diagnosed. Less confused and more alert today. Status: Acute (9) Common variable hypogammaglobulinemia: Problem details: due to multiple myeloma. Functionally immunosuppressed. 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 Flaccid right leg Status: Acute (11) Chronic kidney disease, stage 3b: Problem details: At baseline Status: Acute (12) Frailty syndrome in geriatric patient: Problem details: Acute on chronic frailty. Chronically debilitated due to dementia, post-polio, multiple myeloma and pancytopenia. Acutely debilitated by COVID, aspiration pneumonia and possibly UTI Status: Acute (13) Polypharmacy: Problem details: - hold unnecessary Rx, including melatonin - given her hypersomnolence, will hold off on her acyclovir and fluconazole prophylaxis meds for now and monitor - decrease dose of pregabalin from 75 mg to 50 mg nightly Status: Acute (14) Altered mental status: Problem details: Patient has a longstanding history of recurrent spells of lethargy, not eating, fatigue, malaise and weakness. This clearly occurs with her acute illness and hospitalizations. Her mental status today is improved. Weakness persists Status: Acute (15) UTI (urinary tract infection): Problem details: Urine culture from 06/06/2023 growing Gram-negative rods Status: Acute (16) Discharge planning issues: Problem details: Patient and both want her to go home. Will reassess functional status. If not continue to make good improvement may need rehab stay at snf facility. She is at high risk for readmission due to her overall frailty. Status: Acute Plan Continue in hospital for ongoing treatment of pneumonia and assessment and treatment of disability and chronic medical problems. Anticipate discharge to home with her in the next day or 2. If not making adequate progress may need snf facility for rehab Time Spent With Patient Total time spent: Total time spent today is 40 minutes, 25 minutes in coordination of care discussing with patient, other providers and her plan of care and disposition Subjective Date Seen: 06/08/23 Interval history: Jennifer Medrano is a 82 year old woman presents with her to the emergency department for further assessment of recurrent, worsening cough and hypoxia. Patient was admitted and treated at [facility] from 24 May through 05/27/2023 due to new diagnosis of COVID-19, acute on chronic hypoxic respiratory failure in association with the same, increasing frailty. In the outpatient setting she was started on Paxlovid for treatment of COVID-19. Received 2 doses maximum before she presented to the hospital on 05/24/2023. In-hospital she received 3 days of remdesivir IV. Her hypoxic respiratory failure improve promptly on admission to the hospital. Her condition was back to baseline before she was discharged and return home. informs me that she was doing well for the 1st 2-3 days at home. Subsequently she started to have a loose sounding cough that seemed to originate in her throat and she was not able to clear the loose secretions from her throat. Was seen by her primary care physician, Dr. Roberts, on the day that this set of symptoms started, 05/30/2023. The plan was that her would continue to try to help her at home with use of the Aerobika device and the bedside incentive spirometry device in addition to her other pulmonary medications. They attempted to do so with only minimal success because the patient slept most of the day, and thus in actuality they hardly utilized the recommended treatments at all. Given that her condition did not improve and her room air oxygen saturations were sometimes dropping into the mid 80% range at home, her opted to bring her into the emergency department for further assessment. Patient has dementia and is not able to give much detail about the course of events. This is obtained from her and the medical record. She has had history of recurrent hospitalizations with aspiration pneumonia. Associated with these episodes she has had hypoxia, profound weakness including a weak cough and profound lethargy. With time and antibiotic therapy she has recovered from these episodes in the past. June 06 she was noted to have had a fever overnight. Because of the new fever, persisting cough and abnormal chest x-ray blood and urine cultures were obtained. She was started on piperacillin tazobactam. Today she reports feeling well. Nursing staff, therapists and her all agree that she appears much better today. Her energy is better. Her strength is better with minimal need for assistance with transfers. She is eating better. She still has a weak cough but it is somewhat stronger. She de accessed her port again today. Stop IV antibiotics and put her on Levaquin for a couple more days. Exam Narrative: Exam Narrative: She is alert and in no distress. She is oriented to being in the hospital. She is more interactive and appears less tired. Respirations with minimal basilar crackles. No wheezing. Cardiovascular: S1, S2, regular rate and rhythm. Abdomen: Bowel sounds active. Abdomen is soft without tenderness. Extremities are unchanged with edema and flaccid weakness in the right leg and ankle. Const: Vital Signs, click to edit/add: Vital Signs - 24 hr 06/07/23 19:00 06/07/23 20:20 06/07/23 20:20 Temperature 98.5 F Pulse Rate [Pulse Oximeter] 84 84 Respiratory Rate 22 22 Blood Pressure [Ri ght Arm] 146/67 H Pulse Oximetry 91 91 Oxygen Delivery Me thod Room Air Oxygen Flow Rate 0 06/07/23 20:20 06/07/23 23:15 06/08/23 02:21 Temperature 98.6 F Pulse Rate [Pulse Oximeter] 85 92 Respiratory Rate 18 24 Blood Pressure [Ri ght Arm] 143/46 H Pulse Oximetry 91 90 91 Oxygen Delivery Me thod Room Air Room Air Room Air Oxygen Flow Rate 22 06/08/23 08:15 06/08/23 08:15 06/08/23 08:34 Temperature 98.5 F Pulse Rate [Pulse Oximeter] 86 Respiratory Rate 22 22 Blood Pressure [Ri ght Arm] 157/77 H Pulse Oximetry 90 90 90 Oxygen Delivery Me thod Room Air Room Air Oxygen Flow Rate 0 06/08/23 11:30 06/08/23 15:00 06/08/23 15:15 Temperature 97.9 F 98.1 F Pulse Rate [Pulse Oximeter] 83 83 Respiratory Rate 20 20 Blood Pressure [Ri ght Arm] 158/82 H 168/73 H Pulse Oximetry 94 95 95 Oxygen Delivery Me thod Room Air Room Air Oxygen Flow Rate Documenting provider has reviewed patient's vital signs: yes Labs Labs: Laboratory Results - last 24 hr 06/08/23 07:05 WBC 2.60 L RBC 2.97 L Hgb 9.1 L Hct 29.8 L MCV 100 MCH 31 MCHC 31 L RDW Coeff of Ambreen 16.2 H Plt Count 90 L Neut % (Auto) 59.3 Lymph % (Auto) 28.8 [place] % (Auto) 9.6 Eos % (Auto) 1.9 Baso % (Auto) 0.4 Neut # (Auto) 1.50 L Lymph # (Auto) 0.70 L [place] # (Auto) 0.20 Eos # (Auto) 0.00 Baso # (Auto) 0.00 Abs Immat Gran (auto) 0.00 Imm/Tot Granulo (auto) 0.0 Sodium 142 Potassium 3.3 L Chloride 111 Carbon Dioxide 26 Anion Gap 5 L BUN 11 Creatinine 0.7 Estimated Creat Clear 34.90 Estimated GFR 87 Glucose 79 Calcium 7.7 L C-Reactive Protein 3.6 H
--- NOTE | 2023-06-08 18:48 | PC.NURSE ---
Pt alert to self. Pt had no complaints of pain. Pt turned and repositioned in bed; Pt up to chair x three during shift.?Spouse at bedside late morning-evening. Pt up to bedside commode multiple times. Pt pleasant during shift.?
[2023-06-08 20:00] LABS: C.Difficile Negative (Negative); CDIFFEPI 027 PRESUMPTIVE NEGATIVE (Negative)
[2023-06-08] MEDS: MIRTAZAPINE 15 MG TABLET 7.5 MG PO (21:06)
[2023-06-08] MEDS: PREGABALIN 50 MG CAPSULE PO (21:06)
--- NOTE | 2023-06-08 22:51 | PC.NURSE ---
End of shift nursing note, care provided from [id number]: Pt alert to self. Reorientation needed on location frequently. Vitals stable, slightly elevated BP, scheduled BP media monitor this evening. Pt up in chair prior to bed, stand and pivot Ax2 back to bed, brief changed d/t urinary incontinence. Bed alarm on for pt safety, con't pulse ox to L toe. Call light within pt reach.
[2023-06-09] VITALS (7 sets, daily range): BP systolic 154–177; BP diastolic 69–84; PULSE 76–87; RESP 16–18; TEMP 36.6–36.9; O2SAT 92–97
--- NOTE | 2023-06-09 06:43 | PC.NURSE ---
Shift note [id number]: Pt is alert and oriented self only. Afebrile. Pt denies chest pain, pain, SOB and N/V. Pt was turned and repositioned throughout night.?Pt slept intermittently throughout night.??
[2023-06-09 07:32] LABS: Eosinophils Percent Auto 2.7 % (0.0-7.0); Hematocrit 29.1 % (33.0-51.0); Immature Granulocytes Pct Auto 0.3 %; Lymphocytes Percent Auto 31.1 % (20-44); Mean Corpuscular HGB Conc 31 gm/dL (32-36); Mean Corpuscular Hemoglobin 31 pg (26-34); Mean Corpuscular Volume 99 fL (80-100); Monocytes Percent Auto 12.7 % (0.0-11.0); Neutrophils Percent Auto 53.2 % (42.0-72.0); Platelet Count* 98 K/uL (140-440); RDW Coefficient of Variation % 16.3 % (11.5-15.5); Red Blood Count 2.94 m/uL (4.00-5.20); White Blood Count* 2.99 K/uL (4.50-11.00)
[2023-06-09 07:40] LABS: Slide Review Reflex No
[2023-06-09 07:43] LABS: Chloride* 109 mmol/L (96-114); Potassium* 3.5 mmol/L (3.6-5.1); Sodium* 142 mmol/L (135-149)
[2023-06-09 07:46] LABS: Anion Gap 7 mEq/L (7-15); Blood Urea Nitrogen* 10 mg/dL (7-30); Carbon Dioxide* 26 mmol/L (20-32); Creatinine* 0.7 mg/dL (0.5-1.5); Estimated Glomerular Filt Rate 87 ml/min; Glucose* 77 mg/dL (60-115)
[2023-06-09 07:47] LABS: Calcium* 7.8 mg/dL (8.4-10.6)
[2023-06-09] MEDS: allopurinoL 300 MG TABLET PO (08:45)
[2023-06-09] MEDS: MAGNESIUM OXIDE 400 MG TABLET PO (08:45)
[2023-06-09] MEDS: IPRAT-ALBUT 0.5-2.5 MG/3 ML NEB 1 NEB IH ×3 (08:45→21:05)
[2023-06-09] MEDS: carvediloL 6.25 MG TABLET PO ×2 (08:45→21:07)
[2023-06-09] MEDS: BUDESONIDE 0.5 MG/2ML NEB NEB ×2 (08:46→21:15)
[2023-06-09] MEDS: guaiFENesin 600 MG TAB.ER.12H 1200 MG PO ×2 (08:46→21:06)
[2023-06-09] MEDS: CYANOCOBALAMIN (VITAMIN B-12) 500 MCG TABLET 1000 MCG PO (08:46)
[2023-06-09] MEDS: SENNOSIDES 1 TAB TABLET 2 TAB PO (08:46)
--- NOTE | 2023-06-09 10:28 | P.IMPN_ITS ---
Progress Note: A&P Assessment and plan (1) Acute on chronic hypoxic respiratory failure: Problem details: Initially thought this was secondary to COVID. Now concern about aspiration pneumonia which she has had in the past. Off oxygen 06/09: no on levaquin Status: Acute (2) Pneumonia: Problem details: Fever and hypoxia. Indeterminate chest x-ray. Will treat as pneumonia. Recent hospitalizations put her at high risk for complications. I favor aspiration pneumonia as the most likely explanation. She is now 2 weeks into the diagnosis of COVID. Likely bacterial pneumonia rather than COVID. Status: Acute (3) COVID-19: Problem details: Clinically still appears to have COVID illness with respiratory illness and profound weakness. dx 05/22 - started on paxlovid. admitted 05/24 to [place] for hypoxia. given 3 days of remdesivir. as of 06/04 - day 14 of Covid - Status: Acute (4) Discharge planning issues: Problem details: Patient and both want her to go home. Will reassess functional status. If not continue to make good improvement may need rehab stay at [facility] facility. She is at high risk for readmission due to her overall frailty. 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 Wheel-chair bound. 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 Functionally immunosuppressed. Status: Acute (9) Dementia: Problem details: At [address] [place] [address], SLUMS score 17/30 and dementia was diagnosed. Status: Acute (10) Multiple myeloma: Problem details: Dxed 07/2010, s/p autologous stem cell transplant 02/2011, chemotherapy started at [facility] 2012. Not in remission. Followed by [facility] hematology. Ongoing trial of treatment at [place] is on hold due to acute illness and recurrent hospitalization Status: Acute (11) Pancytopenia: Problem details: Due to underlying multiple myeloma and treatment of myeloma. Functionally immunosuppressed. Status: Acute Plan 06/09: continues to have significant weakness and deconditioning from recurrent hospitalizations; PT evaluation today pending; I recommend SNF will discuss with Subjective Date Seen: 06/09/23 Interval history: patient endorses fatigue and decreased energy endorses sob and intermittent dry cough no chest pain Exam Narrative: Exam Narrative: Gen: no acute distress HEENT: NCAT EOMI mmm CV: RRR normal s1 s2 Lungs: poor inspiratory effort diminished Abd: Soft,nt, nd Neuro: Alert, ; nonfocal screening?exam Skin; Warm, dry no rash on face Const: Vital Signs, click to edit/add: Vital Signs - 24 hr 06/08/23 11:30 06/08/23 15:00 06/08/23 15:15 Temperature 97.9 F 98.1 F Pulse Rate [Pulse Oximeter] 83 83 Respiratory Rate 20 20 Blood Pressure [Le ft Arm] Blood Pressure [Ri ght Arm] 158/82 H 168/73 H Pulse Oximetry 94 95 95 Oxygen Delivery Me thod Room Air Room Air Oxygen Flow Rate 06/08/23 15:15 06/08/23 20:00 06/09/23 00:50 Temperature 97.8 F Pulse Rate [Pulse Oximeter] 87 Respiratory Rate 20 16 Blood Pressure [Le ft Arm] 159/91 H Blood Pressure [Ri ght Arm] Pulse Oximetry 95 95 92 Oxygen Delivery Me thod Room Air Room Air Oxygen Flow Rate 0 06/09/23 00:50 06/09/23 00:50 06/09/23 00:50 Temperature 98.4 F Pulse Rate [Pulse Oximeter] 82 82 Respiratory Rate 16 16 16 Blood Pressure [Le ft Arm] Blood Pressure [Ri ght Arm] 166/69 H Pulse Oximetry 92 92 Oxygen Delivery Me thod Room Air Room Air Oxygen Flow Rate 06/09/23 02:55 06/09/23 08:00 06/09/23 08:00 Temperature 98.2 F 98.1 F Pulse Rate [Pulse Oximeter] 87 83 Respiratory Rate 18 18 Blood Pressure [Le ft Arm] 177/77 H Blood Pressure [Ri ght Arm] 169/77 H Pulse Oximetry 92 93 93 Oxygen Delivery Me thod Room Air Room Air Oxygen Flow Rate 06/09/23 08:00 Temperature Pulse Rate [Pulse Oximeter] Respiratory Rate Blood Pressure [Le ft Arm] Blood Pressure [Ri ght Arm] Pulse Oximetry 93 Oxygen Delivery Me thod Room Air Oxygen Flow Rate Labs Labs: Laboratory Results - last 24 hr 06/08/23 06/09/23 18:21 07:20 WBC 2.99 L RBC 2.94 L Hgb 9.0 L Hct 29.1 L MCV 99 MCH 31 MCHC 31 L RDW Coeff of Ambreen 16.3 H Plt Count 98 L Neut % (Auto) 53.2 Lymph % (Auto) 31.1 [place] % (Auto) 12.7 H Eos % (Auto) 2.7 Baso % (Auto) 0.0 Neut # (Auto) 1.60 L Lymph # (Auto) 0.90 [place] # (Auto) 0.40 Eos # (Auto) 0.10 Baso # (Auto) 0.00 Abs Immat Gran (auto) 0.00 Imm/Tot Granulo (auto) 0.3 Sodium 142 Potassium 3.5 L Chloride 109 Carbon Dioxide 26 Anion Gap 7 BUN 10 Creatinine 0.7 Estimated Creat Clear 34.90 Estimated GFR 87 Glucose 77 Calcium 7.8 L Stl C. diff Tox B Gene Negative Stl C. diff [id number] PRESUMPTIVE NEGATIVE
--- NOTE | 2023-06-09 15:05 | PC.SOCIAL ---
Discharge Planning: After a few conversations with various staff spouse now agrees to Short Term Rehab placement for patient, Jennifer. He would like to be as close to [place] as possible. Faxed packets to [facility] who will consider. [facility] has no beds available until the middle of next week. Social work to follow up as needed.
[2023-06-09] MEDS: levoFLOXacin 500 MG TABLET PO (17:57)
[2023-06-09] MEDS: RIVAROXABAN 10 MG TABLET 20 MG PO (17:57)
--- NOTE | 2023-06-09 18:50 | PC.NURSE ---
PATIENT AFEBRILE AND O2 SATS 94-97%RA. INTERMITTENT NONPRODUCTIVE COUGH. THIS AM, UP WITH SCARLETT LIFT TO RECLINER. THIS AFTERNOON, PATIENT ABLE TO PIVOT TRANSFER WITH A2, WALKER AND GAIT BELT FROM BED TO RECLINER. INCONTINENT OF URINE. DENIED PAIN AT REST AND N/V. TOLERATING REGULAR DIET WITH ENCOURAGEMENT. PATIENT SIPPING ON ENSURE CLEAR THROUGHOUT SHIFT.
[2023-06-09] MEDS: MIRTAZAPINE 15 MG TABLET 7.5 MG PO (21:06)
[2023-06-09] MEDS: PREGABALIN 50 MG CAPSULE PO (21:12)
[2023-06-09] MEDS: SODIUM CHLORIDE 0.9 % (FLUSH) 10 ML SYRINGE 5 ML IVF (21:18)
[2023-06-10 03:00] VITALS: BP 158/80; PULSE 77; RESP 18; TEMP 36.4; O2SAT 95
--- NOTE | 2023-06-10 06:32 | PC.NURSE ---
Shift note: Pt was pelvic transfer from recliner to bed. No fever and pain was observed. Pt has baseline dementia and makes her confuse and disoriented. Takes pill whole with water, one at a time. Dry cough intermittently. Brief changed 1x tonight. Systolic Bp has been high>150 on 3 different occasion. Doing well on room air.
[2023-06-10 07:55] LABS: Basophils Percent Auto 0.3 % (0.0-3.0); Eosinophils Percent Auto 3.3 % (0.0-7.0); Hematocrit 30.5 % (33.0-51.0); Hemoglobin* 9.6 gm/dL (12.0-16.0); Immature Granulocytes Pct Auto 0.3 %; Lymphocytes Percent Auto 30.8 % (20-44); Mean Corpuscular HGB Conc 32 gm/dL (32-36); Mean Corpuscular Hemoglobin 30 pg (26-34); Mean Corpuscular Volume 96 fL (80-100); Monocytes Percent Auto 10.5 % (0.0-11.0); Neutrophils Percent Auto 54.8 % (42.0-72.0); Platelet Count* 119 K/uL (140-440); RDW Coefficient of Variation % 16.2 % (11.5-15.5); Red Blood Count 3.17 m/uL (4.00-5.20); White Blood Count* 3.05 K/uL (4.50-11.00)
[2023-06-10 07:57] LABS: Slide Review Reflex No
[2023-06-10 08:00] VITALS: BP 176/83; PULSE 86; RESP 18; TEMP 36.3; O2SAT 96; O2SAT 97
[2023-06-10 08:08] LABS: Chloride* 108 mmol/L (96-114); Potassium* 3.2 mmol/L (3.6-5.1); Sodium* 140 mmol/L (135-149)
[2023-06-10 08:11] LABS: Anion Gap 6 mEq/L (7-15); Blood Urea Nitrogen* 8 mg/dL (7-30); Calcium* 8.6 mg/dL (8.4-10.6); Carbon Dioxide* 26 mmol/L (20-32); Creatinine* 0.7 mg/dL (0.5-1.5); Estimated Glomerular Filt Rate 87 ml/min; Glucose* 83 mg/dL (60-115)
[2023-06-10] MEDS: IPRAT-ALBUT 0.5-2.5 MG/3 ML NEB 1 NEB IH ×4 (09:38→20:37)
[2023-06-10] MEDS: allopurinoL 300 MG TABLET PO (09:41)
[2023-06-10] MEDS: guaiFENesin 600 MG TAB.ER.12H 1200 MG PO ×2 (09:41→20:36)
[2023-06-10] MEDS: SENNOSIDES 1 TAB TABLET 2 TAB PO (09:41)
[2023-06-10] MEDS: carvediloL 6.25 MG TABLET PO ×2 (09:41→20:36)
[2023-06-10] MEDS: CYANOCOBALAMIN (VITAMIN B-12) 500 MCG TABLET 1000 MCG PO (09:41)
[2023-06-10] MEDS: MAGNESIUM OXIDE 400 MG TABLET PO (09:41)
[2023-06-10] MEDS: BUDESONIDE 0.5 MG/2ML NEB NEB ×2 (09:42→20:36)
[2023-06-10 11:00] VITALS: BP 151/75; PULSE 80; RESP 18; TEMP 36.4; O2SAT 98
[2023-06-10 15:00] VITALS: BP 160/77; PULSE 80; PULSE 81; RESP 18; TEMP 36.9; O2SAT 94; O2SAT 97
--- NOTE | 2023-06-10 17:18 | P.IMPN_ITS ---
Progress Note: A&P Assessment and plan (1) Acute on chronic hypoxic respiratory failure: Problem details: Initially thought this was secondary to COVID. Now concern about aspiration pneumonia which she has had in the past. Off oxygen 06/10/23 Completed 5 days of antibiotics on 06/09/2023. Stop Levaquin. Status: Acute (2) Pneumonia: Problem details: Fever and hypoxia. Indeterminate chest x-ray. Will treat as pneumonia. Recent hospitalizations put her at high risk for complications. I favor aspiration pneumonia as the most likely explanation. She is now 2 weeks into the diagnosis of COVID. Likely bacterial pneumonia rather than COVID. - 06/10 afebrile and on room air now. Clinically resolved. Status: Resolved (3) COVID-19: Problem details: Clinically still appears to have COVID illness with respiratory illness and profound weakness. dx 05/22 - started on paxlovid. admitted 05/24 to [facility] [place] for hypoxia. given 3 days of remdesivir. as of 06/04 - day 14 of Covid - Status: Acute (4) Discharge planning issues: Problem details: Patient and both want her to go home. Will reassess functional status. If not continue to make good improvement may need rehab stay at [facility] facility. She is at high risk for readmission due to her overall frailty. Status: Acute (5) UTI (urinary tract infection): Problem details: Urine culture from 06/06/2023 growing Gram-negative rods 06/09: Urine culture growing proteus species sensitive to levaquin 06/10 Asymptomatic. Had 3 days of zosyn and two days of levaquin, now off, monitor for symptoms. 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 Wheel-chair bound. 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 Functionally immunosuppressed. Status: Acute (9) Dementia: Problem details: At [address] [place] [address], SLUMS score 17/30 and dementia was diagnosed. Status: Acute (10) Multiple myeloma: Problem details: Dxed 07/2010, s/p autologous stem cell transplant 02/2011, chemotherapy started at [facility] 2012. Not in remission. Followed by [facility] hematology. Ongoing trial of treatment at [facility] is on hold due to acute illness and recurrent hospitalization Status: Acute (11) Pancytopenia: Problem details: Due to underlying multiple myeloma and treatment of myeloma. Functionally immunosuppressed. Status: Acute Plan 06/10: continues to have significant weakness and deconditioning from recurrent hospitalizations; SNF recommended. continues to vacillate on the decision. If she is still here Monday, seek SNF placement. Time Spent With Patient Total time spent: Today I spent 40 minutes rounding on the patient. Greater than 50% included discussing care with the patient's , team, reviewing data, updating and managing the care plan. Subjective Time Seen by Provider: 15:00 Date Seen: 06/10/23 Interval history: Jennifer has a rash only on her back. It was also there yesterday and is a bit better today without intervention, but still pruritic. Her , Markell, was also in the room. He asked if he could take her home on Monday. I was surprised by this because I was told that the plan was for her to go to a long-term on Monday because he was unable to take her home. He said that he wanted to take her home, but did not have help to do it until Monday. He is hoping that she will have daily in-home PT and OT. I informed him that there is no daily in- home PT and OT available as an outpatient and that she would need rehab if she is going to get daily PT and OT. He complained that rehab has tried to keep her in the past and not let her go home and that they will do everything they can to make it so she will have to stay there permanently. I said that that had not been my experience and that usually prison facilities try to rehab people who are able to be rehabbed in order to set them home. He was also concerned that if she went to a prison facility they would not let her sleep because in the past they have been in there all the time and she has not been able to get sleep, according to him. Exam Narrative: Exam Narrative: General: No acute distress. Sleeping, arouses to name, falls asleep again during our conversation. Cooperates with exam. No pallor. No jaundice. Oropharynx: Clear. Mucous membranes moist. Cardiovascular: Regular rate and rhythm. No murmurs, gallops, or rubs. Respiratory: Diminished, no crackles or wheezes. Abdomen: Bowel sounds present. Soft, nondistended, nontender. Extremities: No pedal edema. Skin: Diffuse papular rash on back only. Const: Vital Signs, click to edit/add: Vital Signs - 24 hr 06/09/23 19:00 06/09/23 23:00 06/09/23 23:00 Temperature 98.2 F Pulse Rate [Pulse Oximeter] 85 76 Respiratory Rate 18 18 Blood Pressure [Le ft Arm] 154/72 H Blood Pressure [Ri ght Arm] Pulse Oximetry 97 96 Oxygen Delivery Me thod Room Air Oxygen Flow Rate 06/09/23 23:00 06/09/23 23:00 06/10/23 03:00 Temperature 98.2 F 97.5 F L Pulse Rate [Pulse Oximeter] 76 77 Respiratory Rate 18 18 18 Blood Pressure [Le ft Arm] 174/83 H 158/80 H Blood Pressure [Ri ght Arm] Pulse Oximetry 96 96 95 Oxygen Delivery Me thod Room Air Room Air Room Air Oxygen Flow Rate 06/10/23 08:00 06/10/23 08:00 06/10/23 08:00 Temperature Pulse Rate [Pulse Oximeter] 86 Respiratory Rate 18 18 Blood Pressure [Le ft Arm] Blood Pressure [Ri ght Arm] Pulse Oximetry 96 96 Oxygen Delivery Me thod Room Air Oxygen Flow Rate 0 06/10/23 08:00 06/10/23 11:00 Temperature 97.4 F L 97.5 F L Pulse Rate [Pulse Oximeter] 86 80 Respiratory Rate 18 18 Blood Pressure [Le ft Arm] Blood Pressure [Ri ght Arm] 176/83 H 151/75 H Pulse Oximetry 97 98 Oxygen Delivery Me thod Room Air Room Air Oxygen Flow Rate Labs Labs: Laboratory Results - last 24 hr 06/10/23 07:33 WBC 3.05 L RBC 3.17 L Hgb 9.6 L Hct 30.5 L MCV 96 MCH 30 MCHC 32 RDW Coeff of Ambreen 16.2 H Plt Count 119 L Neut % (Auto) 54.8 Lymph % (Auto) 30.8 [place] % (Auto) 10.5 Eos % (Auto) 3.3 Baso % (Auto) 0.3 Neut # (Auto) 1.70 Lymph # (Auto) 0.90 [place] # (Auto) 0.30 Eos # (Auto) 0.10 Baso # (Auto) 0.00 Abs Immat Gran (auto) 0.00 Imm/Tot Granulo (auto) 0.3 Sodium 140 Potassium 3.2 L Chloride 108 Carbon Dioxide 26 Anion Gap 6 L BUN 8 Creatinine 0.7 Estimated Creat Clear 34.90 Estimated GFR 87 Glucose 83 Calcium 8.6
[2023-06-10] MEDS: RIVAROXABAN 10 MG TABLET 20 MG PO (17:47)
[2023-06-10 19:00] VITALS: BP 162/75; PULSE 81; RESP 18; TEMP 36.7; O2SAT 93
[2023-06-10] MEDS: SODIUM CHLORIDE 0.9 % (FLUSH) 10 ML SYRINGE 5 ML IVF (20:37)
[2023-06-10] MEDS: MIRTAZAPINE 15 MG TABLET 7.5 MG PO (20:37)
[2023-06-10] MEDS: PREGABALIN 50 MG CAPSULE PO (20:42)
[2023-06-10] MEDS: TRIAMCINOLONE ACETONIDE CREAM 0.1 % 1 APPLIC TOPICAL (21:33)
[2023-06-10 23:00] VITALS: BP 146/68; PULSE 76; RESP 18; TEMP 36.6; O2SAT 93
[2023-06-11] VITALS (7 sets, daily range): BP systolic 126–151; BP diastolic 58–79; PULSE 71–83; RESP 18; TEMP 36.6–37.1; O2SAT 91–96
--- NOTE | 2023-06-11 06:40 | PC.NURSE ---
Shift note: Pt is doing well as appears to regain strength. Able to assist in turning and reposition. O2 between 91 and 94 on room air. Pt had adequate sleep. Dry cough intermittently. No fever and SOB reported. Takes pills very well, whole with water.
[2023-06-11] MEDS: IPRAT-ALBUT 0.5-2.5 MG/3 ML NEB 1 NEB IH ×4 (09:41→20:30)
[2023-06-11] MEDS: guaiFENesin 600 MG TAB.ER.12H 1200 MG PO ×2 (09:42→20:30)
[2023-06-11] MEDS: allopurinoL 300 MG TABLET PO (09:42)
[2023-06-11] MEDS: SENNOSIDES 1 TAB TABLET 2 TAB PO (09:42)
[2023-06-11] MEDS: MAGNESIUM OXIDE 400 MG TABLET PO (09:42)
[2023-06-11] MEDS: CYANOCOBALAMIN (VITAMIN B-12) 500 MCG TABLET 1000 MCG PO (09:42)
[2023-06-11] MEDS: carvediloL 6.25 MG TABLET PO ×2 (09:43→20:31)
[2023-06-11] MEDS: TRIAMCINOLONE ACETONIDE CREAM 0.1 % 1 APPLIC TOPICAL ×2 (09:45→20:30)
[2023-06-11] MEDS: BUDESONIDE 0.5 MG/2ML NEB NEB ×2 (10:00→20:49)
--- NOTE | 2023-06-11 16:03 | P.IMPN_ITS ---
Progress Note: A&P Assessment and plan (1) Acute on chronic hypoxic respiratory failure: Problem details: Initially thought this was secondary to COVID. Now concern about aspiration pneumonia which she has had in the past. Off oxygen 06/10/23 Completed 5 days of antibiotics on 06/09/2023. Levaquin stopped 06/10/23. Status: Resolved (2) Pneumonia: Problem details: Fever and hypoxia. Indeterminate chest x-ray. Will treat as pneumonia. Recent hospitalizations put her at high risk for complications. I favor aspiration pneumonia as the most likely explanation. She is now 2 weeks into the diagnosis of COVID. Likely bacterial pneumonia rather than COVID. - 06/10 afebrile and on room air now. Clinically resolved. Status: Resolved (3) COVID-19: Problem details: Clinically still appears to have COVID illness with respiratory illness and profound weakness. dx 05/22 - started on paxlovid. admitted 05/24 to [facility] for hypoxia. given 3 days of remdesivir. Covid positive by our PCR on 06/02/23. Will need 20 days of precautions from 06/02/23 due to immunosuppressed state. Status: Acute (4) Discharge planning issues: Problem details: Patient and both want her to go home. Will reassess functional status. If not continue to make good improvement may need [facility]hab stay at [facility]. She is at high risk for readmission due to her overall frailty. Status: Acute (5) UTI (urinary tract infection): Problem details: Urine culture from 06/06/2023 growing Gram-negative rods 06/09: Urine culture growing proteus species sensitive to levaquin 06/10 Asymptomatic. Had 3 days of zosyn and two days of levaquin, now off, monitor for symptoms. 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 Functionally immunosuppressed. Status: Acute (9) Dementia: Problem details: At [address] [place] [address], SLUMS score 17/30 and dementia was diagnosed. Status: Acute (10) Multiple myeloma: Problem details: Dxed 07/2010, s/p autologous stem cell transplant 02/2011, chemotherapy started at [facility] 2012. Not in remission. Followed by [facility] hematology. Ongoing trial of treatment at [facility] is on hold due to acute illness and recurrent hospitalization Status: Acute (11) Pancytopenia: Problem details: Due to underlying multiple myeloma and treatment of myeloma. Functionally immunosuppressed. Status: Acute Plan 06/10: continues to have significant weakness and deconditioning from recurrent hospitalizations; SNF recommended. continues to vacillate on the decision. If she is still here Monday, seek SNF placement. Subjective Time Seen by Provider: 09:35 Date Seen: 06/11/23 Interval history: Jennifer is bright and cheery this morning. Her was not yet here when I saw her. She says she slept very well last night. She was able to get to the chair with nurse assist. Her back is feeling better, less itchy. Exam Narrative: Exam Narrative: General: No acute distress. AAO. Cheerful. Cooperates with exam. No pallor. No jaundice. Oropharynx: Clear. Mucous membranes moist. Cardiovascular: Regular rate and rhythm. No murmurs, gallops, or rubs. Respiratory: Diminished, no crackles or wheezes. Abdomen: Bowel sounds present. Soft, nondistended, nontender. Extremities: Chronic edema of RLE only due to polio. Skin: Diffuse papular rash on back only, clearing from bottom up, improving overall. Const: Vital Signs, click to edit/add: Vital Signs - 24 hr 06/10/23 19:00 06/10/23 23:00 06/10/23 23:00 Temperature 98.1 F Pulse Rate [Pulse Oximeter] 81 76 Respiratory Rate 18 18 Blood Pressure [Le ft Arm] 162/75 H Blood Pressure [Ri ght Arm] Pulse Oximetry 93 93 Oxygen Delivery Me thod Room Air Oxygen Flow Rate 06/10/23 23:00 06/10/23 23:00 06/11/23 03:00 Temperature 98 F 98 F Pulse Rate [Pulse Oximeter] 76 78 Respiratory Rate 18 18 18 Blood Pressure [Le ft Arm] 146/68 H 132/58 L Blood Pressure [Ri ght Arm] Pulse Oximetry 93 93 91 Oxygen Delivery Me thod Room Air Room Air Room Air Oxygen Flow Rate 06/11/23 08:00 06/11/23 08:00 06/11/23 09:00 Temperature 97.8 F Pulse Rate [Pulse Oximeter] 73 Respiratory Rate 18 18 Blood Pressure [Le ft Arm] Blood Pressure [Ri ght Arm] 151/79 H Pulse Oximetry 96 96 96 Oxygen Delivery Me thod Room Air Room Air Oxygen Flow Rate 0 0
[2023-06-11] MEDS: RIVAROXABAN 10 MG TABLET 20 MG PO (17:28)
--- NOTE | 2023-06-11 19:20 | PC.NURSE ---
PATIENT'S O2 SATS 92-97%RA. LUNG SOUNDS DIMINISHED. PATIENT DENIED PAIN AND N/V. INCONTINENT OF URINE AND HAD 1 MEDIUM SOFT INCONTINENT BM. UP WITH A2, WALKER AND GAIT BELT TO RECLINER. RASH TO BACK IMPROVED AND TRIAMCINOLONE CREAM APPLIED THIS AM.
[2023-06-11] MEDS: PREGABALIN 50 MG CAPSULE PO (20:30)
[2023-06-11] MEDS: MIRTAZAPINE 15 MG TABLET 7.5 MG PO (20:30)
[2023-06-12 03:00] VITALS: BP 115/49; PULSE 79; RESP 18; TEMP 36.6; O2SAT 92
--- NOTE | 2023-06-12 06:37 | PC.NURSE ---
Shift note: Pt i doing well. No pain, SOB, and fever recorded. Pt continue to be confuse per baseline dementia. Turn and reposition Q2h. COVID precaution done. Pt had adequate sleep.
[2023-06-12 07:00] VITALS: BP 138/63; PULSE 76; RESP 18; TEMP 36.8; O2SAT 90
[2023-06-12] MEDS: IPRAT-ALBUT 0.5-2.5 MG/3 ML NEB 1 NEB IH ×3 (08:29→21:41)
[2023-06-12] MEDS: MAGNESIUM OXIDE 400 MG TABLET PO (08:31)
[2023-06-12] MEDS: carvediloL 6.25 MG TABLET PO ×2 (08:31→21:44)
[2023-06-12] MEDS: allopurinoL 300 MG TABLET PO (08:31)
[2023-06-12] MEDS: CYANOCOBALAMIN (VITAMIN B-12) 500 MCG TABLET 1000 MCG PO (08:31)
[2023-06-12] MEDS: guaiFENesin 600 MG TAB.ER.12H 1200 MG PO ×2 (08:31→21:45)
[2023-06-12] MEDS: TRIAMCINOLONE ACETONIDE CREAM 0.1 % 1 APPLIC TOPICAL ×2 (08:32→21:46)
[2023-06-12] MEDS: BUDESONIDE 0.5 MG/2ML NEB NEB ×2 (08:33→21:43)
[2023-06-12 11:00] VITALS: RESP 18
[2023-06-12 15:00] VITALS: BP 163/73; PULSE 88; RESP 18; TEMP 37.1; O2SAT 90; O2SAT 91
--- NOTE | 2023-06-12 15:47 | PC.NURSE ---
PATIENT ALERT TO SELF, ABLE TO ANSWER QUESTIONS, INCONTINENT OF BOWEL AND BLADDER, UP PIVOT ASSIST TO CHAIR, TOLERATING REGULAR DIET, ENSURE CLEAR AT BEDSIDE, PRESENT AND SUPPORTIVE, T&R.
--- NOTE | 2023-06-12 16:28 | P.IMPN_ITS ---
Progress Note: A&P Assessment and plan (1) COVID-19: Problem details: Clinically still appears to have COVID illness with respiratory illness and profound weakness. dx 05/22 - started on paxlovid. admitted 05/24 to [facility] for hypoxia. given 3 days of remdesivir. Covid positive by our PCR on 06/02/23. Checking Ag test today. If positive, repeat tomorrow. If negative, repeat in 48 hours. Status: Acute (2) Discharge planning issues: Problem details: Patient and both want her to go home. Will reassess functional status. If not continue to make good improvement may need rehab stay at correction facility. She is at high risk for readmission due to her overall frailty. 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 Wheel-chair bound. 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 Functionally immunosuppressed. Status: Chronic (5) Dementia: Problem details: At [address] [place] [address], SLUMS score 17/30 and dementia was diagnosed. Status: Chronic (6) Multiple myeloma: Problem details: Dxed 07/2010, s/p autologous stem cell transplant 02/2011, chemotherapy started at [facility] 2012. Not in remission. Followed by [facility] hematology. Ongoing trial of treatment at [facility] is on hold due to acute illness and recurrent hospitalization Status: Chronic (7) Pancytopenia: Problem details: Due to underlying multiple myeloma and treatment of myeloma. Functionally immunosuppressed. Status: Acute Plan Continues to have significant weakness and deconditioning from recurrent hospitalizations; SNF recommended. agreeable. Seeking SNF for rehab. [facility] and [place] reviewing. Subjective Date Seen: 06/12/23 Interval history: Jennifer had a good day. Her notes Jennifer's appetite has improved. Jennifer has no complaints. Exam Narrative: Exam Narrative: General: No acute distress. AAO. Cheerful. No pallor. No jaundice. Oropharynx: Clear. Mucous membranes moist. Const: Vital Signs, click to edit/add: Vital Signs - 24 hr 06/11/23 19:00 06/11/23 23:00 06/11/23 23:00 Temperature 98.2 F Pulse Rate [Pulse Oximeter] 77 83 Respiratory Rate 18 18 18 Blood Pressure [Le ft Arm] 126/63 Blood Pressure [Ri ght Arm] Pulse Oximetry 92 92 Oxygen Delivery Me thod Room Air Room Air Fraction of Inspir ed Oxygen 06/11/23 23:00 06/12/23 03:00 06/12/23 07:00 Temperature 98.5 F 98 F Pulse Rate [Pulse Oximeter] 83 79 76 Respiratory Rate 18 18 18 Blood Pressure [Le ft Arm] 135/63 115/49 L Blood Pressure [Ri ght Arm] Pulse Oximetry 92 92 Oxygen Delivery Me thod Room Air Room Air Fraction of Inspir ed Oxygen 06/12/23 07:00 06/12/23 07:00 06/12/23 11:00 Temperature 98.3 F Pulse Rate [Pulse Oximeter] 76 Respiratory Rate 18 18 18 Blood Pressure [Le ft Arm] Blood Pressure [Ri ght Arm] 138/63 Pulse Oximetry 90 90 Oxygen Delivery Me thod Room Air Room Air Fraction of Inspir ed Oxygen 20
--- NOTE | 2023-06-12 16:59 | PC.SOCIAL ---
Discharge planning- Received a phone call from [facility]. They are reviewing with billing if an old bill was paid from previous SNF stay. If the bill has not been paid, [facility] will decline for admission. Phone call to pt's to discuss and locate another SNF option. states after his discussion with MD, it is his preference to have pt go for short term rehab stay. Pt's is ok with this worker contacting [facility] for a possible ST rehab stay. Phone call to [facility] at [phone] and left a voicemail. Faxed referral to [phone] for [facility] to assess pt. Social work will follow up as needed.
[2023-06-12] MEDS: RIVAROXABAN 10 MG TABLET 20 MG PO (18:21)
[2023-06-12 18:57] LABS: SARS Antigen* POSITIVE (Negative)
[2023-06-12] MEDS: MIRTAZAPINE 15 MG TABLET 7.5 MG PO (21:43)
[2023-06-12] MEDS: PREGABALIN 50 MG CAPSULE PO (21:43)
--- NOTE | 2023-06-12 22:18 | PC.NURSE ---
VSS, RA. Denies pain. Some resistance to cares, forgetful, stating she is home, otherwise pleasant. LS diminished, dry non-productive cough- encouraged aerobika. Ate 50% of dinner, encouraged fluids. Wet brief x1. Large loose stool x1. Port not accessed, no IV. Encouraged to get up to chair for dinner, refused. Will continue to monitor, follow POC, and keep pt and family updated. Frannie Zimmerman RN
[2023-06-12 23:00] VITALS: BP 149/54; PULSE 88; RESP 20; TEMP 36.7; O2SAT 91
[2023-06-13] VITALS (7 sets, daily range): BP systolic 132–156; BP diastolic 64–83; PULSE 70–98; RESP 16–22; TEMP 36.6–36.8; O2SAT 89–95
[2023-06-13 06:56] LABS: Basophils Percent Auto 0.2 % (0.0-3.0); Eosinophils Percent Auto 3.2 % (0.0-7.0); Hematocrit 27.5 % (33.0-51.0); Hemoglobin* 8.7 gm/dL (12.0-16.0); Immature Granulocytes Pct Auto 0.2 %; Lymphocytes Percent Auto 25.7 % (20-44); Mean Corpuscular HGB Conc 32 gm/dL (32-36); Mean Corpuscular Hemoglobin 31 pg (26-34); Mean Corpuscular Volume 97 fL (80-100); Monocytes Percent Auto 8.9 % (0.0-11.0); Neutrophils Percent Auto 61.8 % (42.0-72.0); Platelet Count* 172 K/uL (140-440); RDW Coefficient of Variation % 16.7 % (11.5-15.5); Red Blood Count 2.84 m/uL (4.00-5.20); White Blood Count* 4.39 K/uL (4.50-11.00)
[2023-06-13 07:02] LABS: Slide Review Reflex No
[2023-06-13 07:13] LABS: Chloride* 109 mmol/L (96-114)
[2023-06-13 07:14] LABS: Potassium* 3.4 mmol/L (3.6-5.1); Sodium* 139 mmol/L (135-149)
[2023-06-13 07:16] LABS: Creatinine* 0.8 mg/dL (0.5-1.5); Estimated Glomerular Filt Rate 74 ml/min
[2023-06-13 07:17] LABS: Anion Gap 4 mEq/L (7-15); Blood Urea Nitrogen* 21 mg/dL (7-30); Calcium* 8.6 mg/dL (8.4-10.6); Carbon Dioxide* 26 mmol/L (20-32); Glucose* 90 mg/dL (60-115)
--- NOTE | 2023-06-13 08:12 | PC.NURSE ---
Patient alert, pleasant and cooperative. Reported discomfort in her legs which was alleviated with position change. O2 sats 91% on RA. VSS.
[2023-06-13] MEDS: carvediloL 6.25 MG TABLET PO ×2 (09:50→20:23)
[2023-06-13] MEDS: CYANOCOBALAMIN (VITAMIN B-12) 500 MCG TABLET 1000 MCG PO (09:50)
[2023-06-13] MEDS: allopurinoL 300 MG TABLET PO (09:50)
[2023-06-13] MEDS: MAGNESIUM OXIDE 400 MG TABLET PO (09:50)
[2023-06-13] MEDS: IPRAT-ALBUT 0.5-2.5 MG/3 ML NEB 1 NEB IH ×3 (09:51→20:24)
[2023-06-13] MEDS: guaiFENesin 600 MG TAB.ER.12H 1200 MG PO ×2 (09:51→20:24)
[2023-06-13] MEDS: TRIAMCINOLONE ACETONIDE CREAM 0.1 % 1 APPLIC TOPICAL ×2 (09:52→20:25)
[2023-06-13] MEDS: POTASSIUM CHLORIDE 10 MEQ CAPSULE ER 20 MEQ PO (09:58)
[2023-06-13] MEDS: BUDESONIDE 0.5 MG/2ML NEB NEB ×2 (09:59→20:24)
[2023-06-13] MEDS: ACETAMINOPHEN 325 MG TABLET 650 MG PO (13:56)
--- NOTE | 2023-06-13 16:06 | P.IMPN_ITS ---
Progress Note: A&P Assessment and plan (1) COVID-19: Problem details: Clinically still appears to have COVID illness with respiratory illness and profound weakness. dx 05/22 - started on paxlovid. admitted 05/24 to [facility] for hypoxia. given 3 days of remdesivir. Covid positive by our PCR on 06/02/23. COVID Ag test yesterday was positive. Repeat antigen test today and again daily until negative, then repeat again in 48 hours. Status: Acute (2) Discharge planning issues: Problem details: Patient and are agreeable for her to go to half-way facility for rehab. We are waiting to hear back from [facility] and from [facility]. 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 Wheel-chair bound. 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 Functionally immunosuppressed. Status: Chronic (5) Dementia: Problem details: At [address] [place] [address], SLUMS score 17/30 and dementia was diagnosed. Status: Chronic (6) Multiple myeloma: Problem details: Dxed 07/2010, s/p autologous stem cell transplant 02/2011, chemotherapy started at [facility] 2012. Not in remission. Followed by [facility] hematology. Ongoing trial of treatment at [facility] is on hold due to acute illness and recurrent hospitalization Status: Chronic (7) Pancytopenia: Problem details: Due to underlying multiple myeloma and treatment of myeloma. Functionally immunosuppressed. Status: Acute Plan Continues to have significant weakness and deconditioning from recurrent hospitalizations; SNF recommended. agreeable. Seeking SNF for rehab. [facility] and [facility] reviewing. Subjective Date Seen: 06/13/23 Interval history: Jennifer is sleepy this morning. She complains of a bifrontal SHRESTHA, but denies vision changes or any new numbness, weakness, tingling. Her , Markell, was in the room and and we spoke about the ongoing search for half-way facility for rehab. Exam Narrative: Exam Narrative: General: No acute distress. Sleepy, awakens to name, smiles appropriately. Answers questions and cooperates with exam. No pallor. No jaundice. Oropharynx: Clear. Mucous membranes moist. Cardiovascular: Regular rate and rhythm. No murmurs, gallops, or rubs. Respiratory: Diminished, no crackles or wheezes. Abdomen: Bowel sounds present. Soft, nondistended, nontender. Extremities: Chronic edema of RLE only due to polio. Skin: Diffuse papular rash improving. Const: Vital Signs, click to edit/add: Vital Signs - 24 hr 06/12/23 23:00 06/12/23 23:00 06/13/23 03:00 Temperature 98.0 F 98.0 F Pulse Rate [Pulse Oximeter] 88 98 Respiratory Rate 20 22 Blood Pressure [Le ft Arm] Blood Pressure [Ri ght Arm] 149/54 H 153/64 H Pulse Oximetry 91 91 91 Oxygen Delivery Me thod Room Air Room Air Room Air 06/13/23 09:46 06/13/23 09:46 06/13/23 13:53 Temperature 97.8 F 98.2 F Pulse Rate [Pulse Oximeter] 75 82 Respiratory Rate 20 18 Blood Pressure [Le ft Arm] 132/83 Blood Pressure [Ri ght Arm] 156/68 H Pulse Oximetry 89 89 91 Oxygen Delivery Me thod Room Air Room Air Room Air Labs Labs: Laboratory Results - last 24 hr 06/12/23 06/13/23 14:06 06:45 WBC 4.39 L RBC 2.84 L Hgb 8.7 L Hct 27.5 L MCV 97 MCH 31 MCHC 32 RDW Coeff of Ambreen 16.7 H Plt Count 172 Neut % (Auto) 61.8 Lymph % (Auto) 25.7 [place] % (Auto) 8.9 Eos % (Auto) 3.2 Baso % (Auto) 0.2 Neut # (Auto) 2.70 Lymph # (Auto) 1.10 [place] # (Auto) 0.40 Eos # (Auto) 0.10 Baso # (Auto) 0.00 Abs Immat Gran (auto) 0.00 Imm/Tot Granulo (auto) 0.2 Sodium 139 Potassium 3.4 L Chloride 109 Carbon Dioxide 26 Anion Gap 4 L BUN 21 Creatinine 0.8 Estimated Creat Clear 34.90 Estimated GFR 74 Glucose 90 Calcium 8.6 SARS-CoV-2 Ag (Rapid) POSITIVE A
--- NOTE | 2023-06-13 16:31 | PC.SOCIAL ---
Discharge planning- Received a phone call from Iqra at the [facility] in [place] at [phone]. There is no open bed today, but potentially could be an open bed tomorrow. Iqra will keep pt's information and update this worker. Phone call to Krystyna in admissions at [facility]. Pt does have her past due bill paid, however, when admissions was running insurance information it was found that pt only has 3 medicare days for short term rehab left. Pt would need to private pay at minimum $5,000.00 to admit to [facility]. Provided update that pt is over 10 days out from positive Covid test from [facility], however, pt is immunocompromised and tested positive to an antigen test yesterday. [facility] will check policy with their infection control nurse and provide response to this worker on when they can admit pt. Phone call to pt's to discuss insurance and private pay. Pt's is willing to private pay for short term rehab stay. Informed that this worker is awaiting a decision from [facility] on when they can admit. This worker will update pt's when this worker receives a response. Discussed with and was able to get pt's positive Covid test result from the [facility] system. Pt was positive on 05/22/23. Secure e-mailed a copy to Krystyna in admissions at [facility] and provided the update that pt is over 20 days out from original covid test result, however, pt is testing positive on [facility] antigen test yesterday still. Awaiting response from [facility]. Provided update to charge nurse. Social work will continue to follow up as needed.
[2023-06-13] MEDS: RIVAROXABAN 10 MG TABLET 20 MG PO (17:14)
[2023-06-13 18:02] LABS: SARS Antigen* POSITIVE (Negative)
--- NOTE | 2023-06-13 19:07 | PC.NURSE ---
[id number] Patients is in the room visiting.. 1 nebulizer treatment given.. Dry intermittent cough. Patient pivots with Ax2 and GB from chair to the bed. No TEDS in place. 2 plus edema in R leg. Incontinent of urine and BM this shift 1. In the chair for dinner. Call light within reach. will check in at desk when he leaves for the night
[2023-06-13] MEDS: MIRTAZAPINE 15 MG TABLET 7.5 MG PO (20:23)
[2023-06-13] MEDS: PREGABALIN 50 MG CAPSULE PO (20:24)
--- NOTE | 2023-06-14 05:45 | PC.NURSE ---
[id number] Pt up in chair at beginning of shift, resting comfortable. evening cares completed and pt pivot transferred to bed, tolerated activity fair. slept well during night, repositioned q2h, denies pain, pleasant and cooperative.
[2023-06-14 08:30] VITALS: O2SAT 96
[2023-06-14] MEDS: CYANOCOBALAMIN (VITAMIN B-12) 500 MCG TABLET 1000 MCG PO (08:40)
[2023-06-14] MEDS: POTASSIUM CHLORIDE 10 MEQ CAPSULE ER 20 MEQ PO (08:40)
[2023-06-14] MEDS: allopurinoL 300 MG TABLET PO (08:40)
[2023-06-14] MEDS: guaiFENesin 600 MG TAB.ER.12H 1200 MG PO (08:41)
[2023-06-14] MEDS: carvediloL 6.25 MG TABLET PO ×2 (08:41→21:25)
[2023-06-14] MEDS: MAGNESIUM OXIDE 400 MG TABLET PO (08:43)
[2023-06-14] MEDS: TRIAMCINOLONE ACETONIDE CREAM 0.1 % 1 APPLIC TOPICAL ×2 (08:44→21:26)
[2023-06-14 08:45] VITALS: BP 151/75; PULSE 78; RESP 18; TEMP 36.6; O2SAT 92
--- NOTE | 2023-06-14 09:01 | PM.IMPN1 ---
Progress Note: A&P Assessment and plan (1) COVID-19: Problem details: Clinically still appears to have COVID illness with respiratory illness and profound weakness. dx 05/22 with a Covid PCR postive at [facility] on that date - started on paxlovid. admitted 05/24 to [facility] for hypoxia. given 3 days of remdesivir. Covid positive by our PCR on 06/02/23. COVID Ag test yesterday was positive. Repeat antigen tests have remained positive. Continue testing daily until negative then repeat again in 48 hours. Status: Acute (2) Discharge planning issues: Problem details: Patient and are agreeable for her to go to custodial facility for rehab. We are waiting to hear back from [facility] and from [facility]. 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 Wheel-chair bound. 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 Functionally immunosuppressed. Status: Chronic (5) Dementia: Problem details: At [address] [place] [address], SLUMS score 17/30 and dementia was diagnosed. Status: Chronic (6) Multiple myeloma: Problem details: Dxed 07/2010, s/p autologous stem cell transplant 02/2011, chemotherapy started at [facility] 2012. Not in remission. Followed by [facility] hematology. Ongoing trial of treatment at [facility] is on hold due to acute illness and recurrent hospitalization Status: Chronic (7) Pancytopenia: Problem details: Due to underlying multiple myeloma and treatment of myeloma. Functionally immunosuppressed. Status: Acute (8) Dermatitis: Problem details: - 06/11 present on back only. Suspect contact from warm, moist environment of sitting/lying. Change sheets to those washed with Dre[place]. Started Triamcinolone cream. - Resolving Status: Acute Plan Continues to have significant weakness and deconditioning from recurrent hospitalizations; SNF recommended. agreeable. Seeking SNF for rehab. [facility] and [facility] reviewing. 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 She has no complaints and tells me it's going to be a good day. Her was not yet in the room this morning. Exam Narrative: Exam Narrative: General: No acute distress. Awake, alert, oriented to self. Answers questions and cooperates with exam. No pallor. No jaundice. Oropharynx: Clear. Mucous membranes moist. Cardiovascular: Regular rate and rhythm. No murmurs, gallops, or rubs. Respiratory: Diminished, no crackles or wheezes. Abdomen: Bowel sounds present. Soft, nondistended, nontender. Const: Vital Signs, click to edit/add: Vital Signs - 24 hr 06/13/23 09:46 06/13/23 09:46 06/13/23 13:53 Temperature 97.8 F 98.2 F Pulse Rate [Pulse Oximeter] 75 82 Respiratory Rate 20 18 Blood Pressure [Le ft Arm] 132/83 Blood Pressure [Ri ght Arm] 156/68 H Pulse Oximetry 89 89 91 Oxygen Delivery Me thod Room Air Room Air Room Air 06/13/23 17:00 06/13/23 17:03 06/13/23 20:08 Temperature 98.3 F 97.9 F Pulse Rate [Pulse Oximeter] 70 80 Respiratory Rate 16 16 Blood Pressure [Le ft Arm] 134/72 142/66 H Blood Pressure [Ri ght Arm] Pulse Oximetry 95 93 93 Oxygen Delivery Me thod Room Air Room Air 06/13/23 23:00 06/13/23 23:00 Temperature Pulse Rate [Pulse Oximeter] 80 Respiratory Rate 16 Blood Pressure [Le ft Arm] Blood Pressure [Ri ght Arm] Pulse Oximetry 93 Oxygen Delivery Me thod Room Air Labs Labs: Laboratory Results - last 24 hr 06/13/23 17:37 SARS-CoV-2 Ag (Rapid) POSITIVE A
[2023-06-14 09:55] VITALS: BMI 29.8
[2023-06-14 10:53] VITALS: RESP 20; O2SAT 94
--- NOTE | 2023-06-14 10:54 | RESP.RT ---
Patient Lying in bed, remains off Oxygen, RR 10/minute, breathing is regular/easy, good clear voice, non-productive cough. BBS diminished all lung martinez.
[2023-06-14 12:49] VITALS: BP 141/72; PULSE 78; RESP 18; TEMP 36.7; O2SAT 93
[2023-06-14 15:27] VITALS: O2SAT 93
--- NOTE | 2023-06-14 16:23 | PC.SOCIAL ---
Discharge planning- Phone call to [facility] to Krystyna in admissions. Left a voicemail asking for an update on pt's admission. Received a phone call back stating they could take pt on Tuesday 06/19. Reminded [facility] that pt's original Covid test result was at [facility] on 05/22. Krystyna informs that she will discuss with Infection Control Nurse to see if pt is able to admit this week. Phone call to pt's , Markell, and provided update. Reminded pt's that he would have to private pay $5,000.00 on day of admission and he agrees to do so. Provided update to charge nurse. Social work will continue to follow up as needed.
[2023-06-14] MEDS: RIVAROXABAN 10 MG TABLET 20 MG PO (18:07)
--- NOTE | 2023-06-14 19:21 | PC.NURSE ---
End of Shift: Patient was Alert to self only today... up to the chair multiple times for meals today. No reports of pain throughout the day. Transfers via pivot with GB and assist of 2... Incontinent of bowel and bladder. visiting throughout the day in the room. Precautions remain in place due to positive rapid antigen tests. Awaiting SNF placement. No other concerns at this time. Call light within reach. No IV present
[2023-06-14] MEDS: MIRTAZAPINE 15 MG TABLET 7.5 MG PO (21:25)
[2023-06-14] MEDS: PREGABALIN 50 MG CAPSULE PO (21:25)
[2023-06-14 23:00] VITALS: O2SAT 94
[2023-06-15 05:26] LABS: SARS Antigen* POSITIVE (Negative)
--- NOTE | 2023-06-15 06:25 | PC.NURSE ---
End of shift report [id number]: Denies any pain or shortness of breath.Alert and oriented to self and date only.Turned and repostitioned q2h. Reports a productive cough but spouse states he hasn't seen her spit anything up. Requires assist of 1-2 for turning in bed, patient does stiffen up and become resistive to movement. RLE edematous, +1 pitting edema, right foot also has foot drop. Daily antigen test collected and sent to lab.
[2023-06-15 06:35] LABS: Basophils Percent Auto 0.5 % (0.0-3.0); Eosinophils Percent Auto 3.3 % (0.0-7.0); Hematocrit 28.5 % (33.0-51.0); Hemoglobin* 8.9 gm/dL (12.0-16.0); Lymphocytes Percent Auto 26.6 % (20-44); Mean Corpuscular HGB Conc 31 gm/dL (32-36); Mean Corpuscular Hemoglobin 31 pg (26-34); Mean Corpuscular Volume 98 fL (80-100); Monocytes Percent Auto 11.2 % (0.0-11.0); Neutrophils Percent Auto 58.4 % (42.0-72.0); Platelet Count* 199 K/uL (140-440); RDW Coefficient of Variation % 16.6 % (11.5-15.5); Red Blood Count 2.92 m/uL (4.00-5.20); White Blood Count* 4.29 K/uL (4.50-11.00)
[2023-06-15 06:52] LABS: Chloride* 105 mmol/L (96-114)
[2023-06-15 06:53] LABS: Potassium* 3.5 mmol/L (3.6-5.1); Sodium* 139 mmol/L (135-149)
[2023-06-15 06:55] LABS: Creatinine* 0.8 mg/dL (0.5-1.5); Estimated Glomerular Filt Rate 74 ml/min
[2023-06-15 06:56] LABS: Anion Gap 10 mEq/L (7-15); Blood Urea Nitrogen* 20 mg/dL (7-30); Calcium* 8.5 mg/dL (8.4-10.6); Carbon Dioxide* 24 mmol/L (20-32); Glucose* 76 mg/dL (60-115)
[2023-06-15 07:00] LABS: Slide Review Reflex No
[2023-06-15 08:14] VITALS: BP 143/78; PULSE 77; RESP 16; TEMP 36.7; O2SAT 92
[2023-06-15] MEDS: TRIAMCINOLONE ACETONIDE CREAM 0.1 % 1 APPLIC TOPICAL (08:19)
[2023-06-15] MEDS: carvediloL 6.25 MG TABLET PO (08:20)
[2023-06-15] MEDS: POTASSIUM CHLORIDE 10 MEQ CAPSULE ER 20 MEQ PO (08:20)
[2023-06-15] MEDS: CYANOCOBALAMIN (VITAMIN B-12) 500 MCG TABLET 1000 MCG PO (08:20)
[2023-06-15] MEDS: allopurinoL 300 MG TABLET PO (08:20)
[2023-06-15] MEDS: MAGNESIUM OXIDE 400 MG TABLET PO (08:20)
--- NOTE | 2023-06-15 10:29 | PC.SOCIAL ---
Discharge planning: Received call from [facility] stating they can accept pt into a shared (but currently empty) room today. They are requiring to bring check for $5000 as it appears pt has used most of Medicare coverage. Called who is aware and agrees with planned discharge today to [facility] and the private payment requirement. Explained the Important Message from Medicare by phone with . states he is agreeable to discharge and not interested in appealing. is requesting ambulance transport for discharge to [facility]. Pt meets criteria for ambulance transport as she is testing positive for COVID. PAS completed and submitted [id number].
--- NOTE | 2023-06-15 13:22 | PC.NURSE ---
Patient transferred to [facility] at 1212 via [facility]. Rouso-sk-copon report given to Nurse Rosie at [facility].
--- NOTE | 2023-06-15 14:38 | P.DS_ITS ---
DS: Providers Provider Date Seen: 06/15/23 Date of admission: 06/02/23 18:03 Primary care physician: Marylou Roberts MD Admitting Clinician: Johan Watson MD Consults: 06/02/23 18:03 Consult to Physical Therapy [CONS] Routine Comment: Reason(s) for PT Consult:: Evaluate and Treat Any Restrictions?:: No Restrictions Consult to [employer] [CONS] Routine Comment: Reason for Consult:: Discharge Planning Needs 06/02/23 18:07 Consult to Occupational Therapy [CONS] Routine Comment: Reason(s) for OT Consult:: Evaluate and Treat Any Restrictions?:: No Restrictions 06/02/23 18:22 Consult to Respiratory Therapy [CONS] Routine Comment: Reason(s) for RT Consult:: Consult Comment: Aerobika device use throughout the day, min of once hourly during the day - awake to use if sleeping; possible need for suctioning 06/02/23 22:05 Consult to Occupational Therapy [CONS] Routine Comment: Reason(s) for OT Consult:: Evaluate and Treat Any Restrictions?:: No Restrictions Consult to Physical Therapy [CONS] Routine Comment: Reason(s) for PT Consult:: Evaluate and Treat Any Restrictions?:: No Restrictions Attending Physician on discharge: ERVIN Louie, [facility] Date of Discharge: 06/15/23 DS: Diagnosis Discharge Diagnosis (1) Acute on chronic hypoxic respiratory failure: Status: Resolved Problem details: Initially thought this was secondary to COVID. Now concern about aspiration pneumonia which she has had in the past. Off oxygen 06/10/23 Completed 5 days of antibiotics on 06/09/2023. Levaquin stopped 06/10/23. Resolved, Remained stable during hospital course (2) Pneumonia: Status: Resolved Problem details: Fever and hypoxia. Indeterminate chest x-ray. Will treat as pneumonia. Recent hospitalizations put her at high risk for complications. I favor aspiration pneumonia as the most likely explanation. She is now 2 weeks into the diagnosis of COVID. Likely bacterial pneumonia rather than COVID. - 06/10 afebrile and on room air now. Clinically resolved. (3) COVID-19: Status: Acute Problem details: Clinically still appears to have COVID illness with respiratory illness and profound weakness. dx 05/22 with a Covid PCR postive at [facility] on that date - started on paxlovid. admitted 05/24 to [facility] for hypoxia. given 3 days of remdesivir. Covid positive by our PCR on 06/02/23. COVID Ag test yesterday was positive. Repeat antigen tests have remained positive. Continue testing daily until neg ative then repeat again in 48 hours. Awaiting acceptance to [facility]. (4) Neutropenia: Status: Acute Problem details: Absolute neutrophil count down to 1000 today. She had some recovery last week when she was here for COVID infection. No recent treatment for myeloma. Continue to monitor. Monitored during hospital course, stable. Outpatient follow-up with PCP (5) UTI (urinary tract infection): Status: Resolved Problem details: Urine culture from 06/06/2023 growing Gram-negative rods 06/09: Urine culture growing proteus species sensitive to levaquin 06/10 Asymptomatic. Had 3 days of zosyn and two days of levaquin, now off, monitor for symptoms. (6) Altered mental status: Status: Acute Problem details: Patient has a longstanding history of recurrent spells of lethargy, not eating, fatigue, malaise and weakness. This clearly occurs with her acute illness and hospitalizations. Her mental status has improved, unknown if back to baseline. Weakness persists. (7) Acute anemia: Status: Acute Problem details: Part of pancytopenia. She did receive 1 unit blood transfusion during hospital course. No active bleeding. Remains stable. (8) Chronic kidney disease, stage 3b: Status: Chronic Problem details: At baseline. 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 Wheel-chair bound. Flaccid right leg (11) Common variable hypogammaglobulinemia: Status: Chronic Problem details: due to multiple myeloma. Functionally immunosuppressed. (12) Dementia: Status: Chronic Problem details: At [address] [place] [id number] detention, SLUMS score 17/30 and dementia was diagnosed. (13) Pancytopenia: Status: Acute Problem details: Due to underlying multiple myeloma and treatment of myeloma. Functionally immunosuppressed. (14) Multiple myeloma: Status: Chronic Problem details: Dxed 07/2010, s/p autologous stem cell transplant 02/2011, chemotherapy started at [facility] 2012. Not in remission. Followed by [facility]. Ongoing trial of treatment at [facility] is on hold due to acute illness and recurrent hospitalization (15) Frailty syndrome in geriatric patient: Status: Acute Problem details: Acute on chronic frailty. Chronically debilitated due to dementia, post-polio, multiple myeloma and pancytopenia. Acutely debilitated by COVID, aspiration pneumonia and possibly UTI (16) Dermatitis: Status: Acute Problem details: - 06/11 present on back only. Suspect contact from warm, moist environment of sitting/lying. Change sheets to those washed with Dreft. Started Triamcinolone cream. - Resolving. Continue to monitor and discharge DS: Summary Hospital Course Hospital Course: [age] old female past medical history significant for CKD, post-polio syndrome, dementia, acute on chronic hypoxic respiratory failure, history of COVID-19, from myeloma was admitted to the medical floor for acute on chronic recurrent hypoxic respiratory failure in setting of suspected secondary b acterial pneumonia following recent COVID infection. Course of care and details as noted above. Remainder of chronic medical comorbidities were monitored and managed with home medications. Much of patient's hospital course was awaiting placement at [facility] as COVID-19 antigen test continued to be positive despite initial PCR positive test on 05/22/2023. Continued to work on strength and mobility during this course. Status at Discharge Overall status at discharge: patient is progressing back to baseline Time Spent with Patient Time attestation: Total time spent providing and/or coordinating discharge services: Time spent: Greater than 30 minutes Exam Narrative: Exam Narrative: PHYSICAL EXAM General: Pleasant, conversant, NAD Cardiovascular: RRR, S1S2. No pitting edema Pulmonary: CTA bilaterally without rhonchi, rales, expiratory wheezes. No dyspnea Neurological: Alert, cranial nerves intact, no focal findings Extremities: No gross joint deformity or swelling. AROMI. Neurovascularly intact Skin: Warm, dry. Const: Vital Signs, click to edit/add: Vital Signs - 24 hr 06/14/23 15:27 06/14/23 23:00 06/15/23 08:14 Temperature 98.1 F Pulse Rate [Pulse Oximeter] 77 Respiratory Rate 16 Blood Pressure [Le ft Arm] 143/78 H Pulse Oximetry 93 94 92 Oxygen Delivery Me thod Room Air Room Air Room Air 06/15/23 08:14 Temperature Pulse Rate [Pulse Oximeter] Respiratory Rate Blood Pressure [Le ft Arm] Pulse Oximetry 92 Oxygen Delivery Me thod Room Air DS: Data Data Completed and Pending Completed studies during hospitalization: Procedures Introduction of Other Gas into Respiratory Tract, Via Natural or Artificial Opening (01/26/23) Introduction of Other Therapeutic Substance into Respiratory Tract, Via Natural or Artificial Opening (05/24/23) Labs on day of discharge: Labs from last 24 hours 06/15/23 06/15/23 06:09 04:55 WBC 4.29 L RBC 2.92 L Hgb 8.9 L Hct 28.5 L MCV 98 MCH 31 MCHC 31 L RDW Coeff of Ambreen 16.6 H Plt Count 199 Neut % (Auto) 58.4 Lymph % (Auto) 26.6 [place] % (Auto) 11.2 H Eos % (Auto) 3.3 Baso % (Auto) 0.5 Neut # (Auto) 2.50 Lymph # (Auto) 1.10 [place] # (Auto) 0.50 Eos # (Auto) 0.10 Baso # (Auto) 0.00 Abs Immat Gran (auto) 0.00 Imm/Tot Granulo (auto) 0.0 Sodium 139 Potassium 3.5 L Chloride 105 Carbon Dioxide 24 Anion Gap 10 BUN 20 Creatinine 0.8 Estimated Creat Clear 34.90 Estimated GFR 74 Glucose 76 Calcium 8.5 SARS-CoV-2 Ag (Rapid) POSITIVE A Discharge Plan Discharge Disposition: [facility] Date of Admission: 06/02/23 18:03 Attending Provider on Discharge: Julia Stephens Primary Care Provider: Marylou Roberts Condition: Unchanged Anticipated Discharge Date/Time: 06/15/23 09:50 Discharge Medications: New pregabalin [Lyrica] 50 mg Capsule 50 mg PO HS Qty: 30 0RF Continued melatonin 3 mg capsule 4 mg PO HS PRN magnesium oxide 400 mg magnesium capsule 400 mg PO DAILY calcium carbonate 500 mg calcium (1,250 mg) tablet 500 mg PO DAILY cyanocobalamin (vitamin B-12) 100 mcg tablet 1,000 mcg PO DAILY carvedilol 12.5 mg tablet 6.25 mg PO BID Rx Instructions: TAKE HALF TABLET BY MOUTH TWICE DAILY WITH A MEAL acetaminophen 325 mg tablet 650 mg PO QID PRNQty: 30 0RF mirtazapine 7.5 mg tablet 7.5 mg PO HS allopurinol 300 mg tablet 300 mg PO DAILY Patient Comments: FOR 10 DAYS TO HELP PREVENT TUMOR LYSIS SYNDROME fluconazole 200 mg tablet 400 mg PO DAILY albuterol sulfate [Ventolin HFA] 90 mcg/actuation HFA aerosol inhaler 2 inh inhalation Q4H PRN multivitamin Tablet 1 tab PO DAILY Xarelto 20 mg tablet 20 mg PO QPM Rx Instructions: TAKE 1 TABLET BY MOUTH DAILY WITH EVENING MEAL pregabalin [Lyrica] 75 mg capsule 75 mg PO HS acyclovir 200 mg Capsule 400 mg PO BID Qty: 60 0RF Discharge Orders: Discharge Order (Routine); Ordered 06/15/23 Ordered By: Julia Stephens Activity Level: Up with assist and Use Walker Discharge Diet: Regular Follow Up Appointments: Marylou Roberts MD [Primary Care Provider] - 06/22/23 (post hospital follow up) Forms: [facility] Info Instructions Admit to: SNF Discharge Potential: Fair Length of Stay: <30 days Code Status: Full Code TEDs: N/A Rehab Potential: Fair Therapy: Physical Therapy and Occupational Therapy Therapy Orders: Evaluate and Treat Oxygen: No Urinary Catheter: No Lab Orders: CBC, potassium in 1 week Orders are good >30 days: No Signature: Terra Hernandez MD
== END 2023-06-15 12:12 | DRG 189 ==
LOC: ED 15:37 → MEDSURG 16:39
PROVIDERS: Family Medicine; Physician Assistant; Admitting Provider Internal Medicine; Emergency Provider Emergency Medicine Emergency Medical Services; PCP Internal Medicine; Visit Provider Internal Medicine
DX: J96.21 Acute and chronic respiratory failure with hypoxia (principal); U07.1 COVID-19; J69.0 Pneumonitis due to inhalation of food and vomit; J15.9 Unspecified bacterial pneumonia; D80.1 Nonfamilial hypogammaglobulinemia; C90.00 Multiple myeloma not having achieved remission; D61.818 Other pancytopenia; N39.0 Urinary tract infection, site not specified; Z94.84 Stem cells transplant status; J44.0 Chronic obstructive pulmonary disease with (acute) lower respiratory infection; G14 Postpolio syndrome; I12.9 Hypertensive chronic kidney disease with stage 1 through stage 4 chronic kidney disease, or unspecified chronic kidney disease; N18.32 Chronic kidney disease, stage 3b; F03.90 Unspecified dementia, unspecified severity, without behavioral disturbance, psychotic disturbance, mood disturbance, and anxiety; D70.9 Neutropenia, unspecified; D64.89 Other specified anemias; J96.22 Acute and chronic respiratory failure with hypercapnia; R21 Rash and other nonspecific skin eruption; G62.9 Polyneuropathy, unspecified; E03.9 Hypothyroidism, unspecified; Z99.3 Dependence on wheelchair; Z86.711 Personal history of pulmonary embolism; Z85.3 Personal history of malignant neoplasm of breast; Z87.891 Personal history of nicotine dependence
CPT/HCPCS: 36415; 36430; 51702; 71045; 71250; 80048; 80069; 81001; 81003; 81015; 82533; 82728; 82803; 83540; 83550; 83605; 83735; 84145; 84484; 85025; 85027; 85379; 86140; 86850; 86900; 86901; 86922; 87040; 87081; 87086; 87186; 87426; 87493; 87631; 93005; 94640; 94664; 94761; 97110; 97162; 97165; 97530; 97535; 99284; 99285; A9270; J1642; J2405; J2543; J7030; J7050; J7626; P9016

== ENCOUNTER 2023-06-15 12:06 | Outpatient (CLI) | payer MEDICARE, OTHER, SELFPAY | END 2023-06-15 12:07 | disposition home or self-care (01) | LOC: AMB 06-18 13:17 | PROVIDERS: PCP Internal Medicine; Visit Provider Emergency Medicine Emergency Medical Services | DX: U07.1 COVID-19 (principal) | CPT/HCPCS: A0425; A0428 ==

== ENCOUNTER 2023-09-21 11:19 | Outpatient (RCR) | payer MEDICARE, OTHER, SELFPAY ==
--- NOTE | 2023-02-14 13:38 | ONC.NURNOTE ---
Care coordination [facility] received call from Markell Medrano to cancel upcoming appointment to establish care with Dr. Mary Guardado, [facility], for collaborative management of her multiple myeloma with Dr. Abdirizak Jiménez, [facility]. Left message with Markell to acknowledge receipt of call, and appointment cancelation. Also requested call back to confirm if Ms. Medrano will be needing to reschedule.
== END 2024-03-19 23:59 | disposition home or self-care (01) ==
LOC: CCIC 11:19
PROVIDERS: PCP Internal Medicine; Referring Provider Internal Medicine; Visit Provider Internal Medicine Hematology & Oncology
DX: C90.02 Multiple myeloma in relapse (principal); N18.32 Chronic kidney disease, stage 3b
CPT/HCPCS: 36415; 36591; 82565; 84295; 84550

== ENCOUNTER 2024-11-26 11:34 | Outpatient (CLI) | payer MEDICARE, OTHER, SELFPAY | END 2024-11-26 11:35 | disposition home or self-care (01) | LOC: NFLDREF 11-27 00:29 | PROVIDERS: PCP Internal Medicine; Referring Provider Internal Medicine; Visit Provider Internal Medicine | DX: N18.32 Chronic kidney disease, stage 3b (principal); E03.9 Hypothyroidism, unspecified | CPT/HCPCS: 80048; 84439; 84443 ==

== ENCOUNTER 2024-12-25 13:53 | Outpatient (CLI) | payer MEDICARE, OTHER, SELFPAY | END 2024-12-25 13:54 | disposition home or self-care (01) | LOC: NFLDREF 12-27 00:22 | PROVIDERS: PCP Internal Medicine; Referring Provider Internal Medicine; Visit Provider Surgery | DX: T81.49XA Infection following a procedure, other surgical site, initial encounter (principal); B95.61 Methicillin susceptible Staphylococcus aureus infection as the cause of diseases classified elsewhere | CPT/HCPCS: 87070; 87186 ==

== ENCOUNTER 2024-12-29 13:12 | Outpatient (RCR) | payer MEDICARE, OTHER, SELFPAY ==
[2024-12-28 14:18] VITALS: TEMP 36.2
--- NOTE | 2024-12-28 14:22 | PC.NURSE ---
Patient's temperature 97.1. Left upper arm cleansed with saline, and packed with idioform, abd pad over packing then remigio wrapped. Wound bled with dressing removal. Patient tolerated dressing change well. Patient left the floor by her wheelchair accompanied by at 1354.
[2024-12-29 14:26] VITALS: TEMP 36.1
--- NOTE | 2024-12-29 14:28 | PC.NURSE ---
Patient temperature 70.0. Patient left extremity wound dressing changed, bloody drainage through old remigio bandage. Patient tolerated dressing change well, and left the floor accompanied by at 1023.
== END 2025-03-29 23:59 | disposition home or self-care (01) ==
LOC: MS OUT 13:12
PROVIDERS: PCP Internal Medicine; Visit Provider Family Medicine
DX: Z48.01 Encounter for change or removal of surgical wound dressing (principal); T81.49XA Infection following a procedure, other surgical site, initial encounter
CPT/HCPCS: G0463; A4221

== ENCOUNTER 2025-02-12 12:27 | Outpatient (CLI) | payer MEDICARE, OTHER, SELFPAY | END 2025-02-12 12:28 | disposition home or self-care (01) | LOC: NFLDREF 02-16 02:36 | PROVIDERS: PCP Internal Medicine; Referring Provider Internal Medicine; Visit Provider Registered Nurse | DX: R30.0 Dysuria (principal); N30.90 Cystitis, unspecified without hematuria | CPT/HCPCS: 87086 ==

== ENCOUNTER 2025-06-08 11:25 | Emergency (ER) | payer MEDICARE, OTHER, SELFPAY ==
--- OUTSIDE RECORDS SUMMARY | 2018-08-23 19:00 | XMS_ITS | Continuity of Care Document ---
Author Organization [facility] Address [address] [place] [id number] Phone Care Team Providers Care Bioinformatics Research Technician Name Role Phone [facility] Medellin MD Unavailable Unavailable Procedures Procedure Date EKG interpretation and report only EKG interpretation and report only Advance Directives Directive Yes / No Effective Date File Name No Information Encounters Encounter Description Practice Location Reason(s) For Visit Diagnoses Date Provider Providers Copied on Encounter [facility] [address] [place] [address], [id number], tel:[phone] [facility] No Information Lacie Segura. [address] [place] [address], [id number], . tel:[phone] Referring Provider: [address], [place], [id number]. tel:[phone] [facility] [address] [place] [address], [id number], tel:[phone] [facility] No Information Lacie Segura. [address] [place] [address], [id number], . tel:[phone] Referring Provider: [address], [place], [address]. tel:[phone] Family History Family Member Type Diagnosis Age At Onset No Information Payers Payer name Insurance type Covered alliance party ID Authoriza tibaltazar(s) [employer] [place] [id number] [facility] [id number] Social History Type Description Quantity Date Captured Comments Sex Female Smoking Status No Information Chief Complaint And Reason For Visit No Information Plan Of Treatment Date Type Action Status No Information History Of Present Illness Encounter Date Complaint History Of Prese nt Illness No Information Instructions Date Instruction Additional Infor mation No Information Assessments Type Assessment Date No Information
[2025-06-08] VITALS (11 sets, daily range): BP systolic 103–141; BP diastolic 46–60; PULSE 72–81; RESP 18–19; TEMP 36.4–37.1; O2SAT 91–97
--- NOTE | 2025-06-08 12:06 | ED_ITS ---
HPI - General Adult General Time Seen by Provider: 12:07 <Julianne Villalba MD - Last Filed: 06/10/25 19:52> Date Seen: 06/08/25 <Julianne Villalba MD - Last Filed: 06/10/25 19:52> Chief complaint: Weakness <Julianne Villalba MD - Last Filed: 06/10/25 19:52> Stated complaint: dehydration <Julianne Villalba MD - Last Filed: 06/10/25 19:52> Time Seen by Provider: 06/08/25 12:02 <Julianne Villalba MD - Last Filed: 06/10/25 19:52> Source: patient and RN notes reviewed <Julianne Villalba MD - Last Filed: 06/10/25 19:52> Mode of arrival: ambulatory <Julianne Villalba MD - Last Filed: 06/10/25 19:52> Limitations: no limitations <Julianne Villalba MD - Last Filed: 06/10/25 19:52> History of Present Illness HPI narrative: This 84-year-old female is coming in with increasing fatigue/weakness over couple of weeks. Her and her daughter are with. They have a house in [facility] but are primarily staying here. They have family here. They have 2 residences. They have just note increased difficulty with any activity, quite a chore just to get from her wheelchair to her regular chair, seems to be quite weak. Seems to be global. No fevers or chills, no cough or cold symptoms. No abdominal symptoms such as nausea vomiting diarrhea. No urinary symptoms. They do wonder if this is dehydration, they feel she does not drink much. She had stem cell transplant years ago and has multiple myeloma that is in remission. 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 She has chronic kidney disease, dementia, chronic systolic heart failure and history of pulmonary embolus. They do not feel that there is any changes in her edema or breathing. She has right greater than left chronic edema of her lower extremities, feel she is at baseline. She has no acute pain complaints. <Julianne Villalba MD - Last Filed: 06/10/25 19:52> Related Data Home medications: Home Medications ?Medication ?Instructions ?Recorded ?Confirmed calcium carbonate 500 mg PO DAILY 08/08/2208/21 cyanocobalamin (vitamin B-12) 100 1,000 mcg PO DAILY 1 10/09/21 06/08/25 mcg tablet magnesium oxide 400 mg PO DAILY 08/08/2208/21 melatonin 3 mg capsule 4 mg PO HS PRN 08/08/2205/28 albuterol sulfate 90 mcg/actuation 2 inh inhalation Q4 H PRN 06/02/23 06/08/25 aerosol inhaler (Ventolin HFA) multivitamin 1 tab PO DAILY 06/02/2305/28 Previous Rx's ?Medication ?Instructions ?Recorded acetaminophen 325 mg tablet 650 mg (2 x 325 mg) PO QID PRN #30 01/31/23 tabs rivaroxaban 20 mg tablet (Xarelto) 20 mg PO QPM #90 ta bs 08/12/24 pregabalin 75 mg capsule (Lyrica) 75 mg PO HS #90 caps 09/17/24 mirtazapine 7.5 mg tablet 7.5 mg PO QPM #90 tabs 12/03 carvedilol 12.5 mg tablet 6.25 mg (1/2 x 12.5 mg) PO B ID #[id number] 03/13/25 tabs <Julianne Villalba MD - Last Filed: 06/10/25 19:52> Allergies/adverse reactions: Allergies Allergy/AdvReac Type Severity Reaction Status Date / Time No Known Allergies Allergy Unknown Verified 06/08/25 11:43 <Julainne Villalba MD - Last Filed: 06/10/25 19:52> Review of Systems Status of ROS: Reports: 6 or more systems reviewed and unremarkable except as noted in History and below <Julianne Villalba MD - Last Filed: 06/10/25 19:52> [facility] Medical History: Medical History History of hypothyroidism ?Z86.39 - Personal history of other endocrine, nutritional and metabolic disease (ICD-10) History of pulmonary embolism ?Z86.711 - Personal history of pulmonary embolism (ICD-10) History of hypertension ?Z86.79 - Personal history of other diseases of the circulatory system (ICD- 10) History of aspiration pneumonia ?Z87.01 - Personal history of pneumonia (recurrent) (ICD-10) History of breast cancer ?Z85.3 - Personal history of malignant neoplasm of breast (ICD-10) <Julianne Villalba MD - Last Filed: 06/10/25 19:52> Surgical History: Surgical History 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) ?C44.629 - Squamous cell carcinoma of skin of left upper limb, including shoulder (ICD-10) S/P lumpectomy of breast ?Z98.890 - Other specified postprocedural states (ICD-10) History of placement of ear tubes (10/22/12) ?Z96.22 - Myringotomy tube(s) status (ICD-10) History of autologous stem cell transplant (04/21/11) ?Z94.84 - Stem cells transplant status (ICD-10) <Julianne Villalba MD - Last Filed: 06/10/25 19:52> Social History: Social History What is your current living situation?: I presently have a place to live Problems where you live: no known problems Problems where you live details: N/A In the past 12 months, utilities in danger of being shut off: no In past 12 months, lack of transportation kept you from medical appts, meetings, work, or getting things needed for daily living: no In the past 12 mos, have been you worried that your food would run out before you had money to buy more?: never true In the past 12 mos, the food you bought just didn't last and you didn't have money to buy more?: never true Highest level of school completed/degree received: Master's degree Smoking Status: Former smoker What tobacco products do you use: cigarettes Smoking quit date/years: >15 years ago Do you use any of these nicotine containing products: None Second hand tobacco smoke exposure: No (unknown) How often do you have a drink containing alcohol: 2-3 times a week Alcohol type: wine How many standard drinks containing alcohol do you have on a typical day: 1 or 2 How often do you have six or more drinks on one occasion: Never AUDIT-C Alcohol total score: 3 Non-prescribed substance use: denies use Caffeine: Yes (coffee) How often does anyone, including family, friends and others, physically hurt you : never How often does anyone, including family, friends and others, insult or talk down to you: never How often does anyone, including family, friends and others, threaten you with harm: never How often does anyone, including family, friends and others, scream or curse at you: never service: No <Julianne Villalba MD - Last Filed: 06/10/25 19:52> Exam Const: Vital Signs, click to edit/add: Vital Signs - 24 hr 06/08/25 11:37 06/08/25 13:52 06/08/25 15:36 Temperature 98 F 97.6 F 97.8 F Pulse Rate Pulse Rate [Right Pulse Oximeter] 79 78 79 Respiratory Rate 18 18 18 Blood Pressure Blood Pressure [Ri ght Upper Arm] 103/49 L 124/54 L 123/52 L Pulse Oximetry 97 94 94 Oxygen Delivery Me thod Room Air Room Air Room Air 06/08/25 17:06 06/08/25 17:30 Temperature 98.5 F 98.5 F Pulse Rate 80 81 Pulse Rate [Right Pulse Oximeter] Respiratory Rate 18 18 Blood Pressure 120/46 L 130/49 L Blood Pressure [Ri ght Upper Arm] Pulse Oximetry 91 91 Oxygen Delivery Me thod This 84-year-old female is alert, interactive, no parents stress, lying in bed. Sclera clear, face atraumatic, conjugate gaze. She does seem to be more pale, no rash of skin noted. Speech is normal. Neck supple, note no masses or adenopathy. She requires full assistance just to sit up to listen to her lungs. She does have kyphosis, some more dry crackles at both bases but no wheezing, no wet sounding lungs, lungs clear elsewhere. CV regular, no murmur, normal S1- S2, no S3-S4 noted. Abdomen is soft, nontender, nondistended, no organomegaly, no rebound or guarding, no masses. She has some chronic right lower extremity nonpitting edema, no pretibial edema of the left leg. <Julianne Villalba MD - Last Filed: 06/10/25 19:52> Vital Signs, click to edit/add: Vital Signs - 24 hr 06/08/25 11:37 06/08/25 13:52 06/08/25 15:36 Temperature 98 F 97.6 F 97.8 F Pulse Rate Pulse Rate [Right Pulse Oximeter] 79 78 79 Respiratory Rate 18 18 18 Blood Pressure Blood Pressure [Ri ght Upper Arm] 103/49 L 124/54 L 123/52 L Pulse Oximetry 97 94 94 Oxygen Delivery Me thod Room Air Room Air Room Air 06/08/25 17:06 06/08/25 17:30 Temperature 98.5 F 98.5 F Pulse Rate 80 81 Pulse Rate [Right Pulse Oximeter] Respiratory Rate 18 18 Blood Pressure 120/46 L 130/49 L Blood Pressure [Ri ght Upper Arm] Pulse Oximetry 91 91 Oxygen Delivery Me thod <Alistair Rubio MD - Last Filed: 06/08/25 17:51> Documenting provider has reviewed patient's vital signs: yes <Julianne Villalba MD - Last Filed: 06/10/25 19:52> Course Course ED Course: This 84-year-old female who is hemodynamically stable without fevers coming in with nonspecific fatigue in generalized weakness. Did discuss importance of looking at urinalysis, see that she had a UTI in January. Sometimes patient can be asymptomatic as far as urinary symptoms. Will get a full complement of labs. They would like us to access her port. Will initiate 500 mL normal saline to start, they are quite happy about getting IV fluids as they feel this is the issue and she is dehydrated. Certainly will look at labs. Will get a portable chest x-ray. She does not strike me as being in congestive heart failure clinically but will consider this. Obviously would be stopping fluids if we do see this. <Julianne Villalba MD - Last Filed: 06/10/25 19:52> Reevaluation(s) Time of Reevaluation #1: 13:45 <Julianne Villalba MD - Last Filed: 06/10/25 19:52> Reevaluation #1: Did update them that her hemoglobin was 7.5, platelets are 50,000. They do routine blood work through [facility]. I cannot see those results. Discussed that lab will be down to do blood type and crossmatch for a unit packed red blood cells. There are not aware of any issues with transfusions in the past, she has had some transfusions when her blood gets ?low?. Otherwise, there where that we are waiting chemistries. She is adamant that she has not noticed any blood in her stool, no dark tarry stools, no GI discomfort such as heartburn or dyspepsia, no abdominal pain. <Julianne Villalba MD - Last Filed: 06/10/25 19:52> Time of Reevaluation #2: 16:41 <Julianne Villalba MD - Last Filed: 06/10/25 19:52> Reevaluation #2: Had discussion with patient, her and her daughter regarding the cell lines and my phone conversation with the silk brusher. We are going to see if we can get her transferred down to [facility]. If we are unsuccessful, she really does need close follow-up with her hematology group. There is concern of pancytopenia and needing a transfusion for her anemia. We need to await the reading of her chest CT but on my preliminary review, I do not see any definitive pneumonia. Obviously will wait for that reading. I have not found any definite evidence for infection in this patient. We still been unsuccessful in getting urine. I did consent her on blood transfusion after risks and benefits reviewed. She agrees to proceed with a unit of packed red blood cells. <Julianne Villalba MD - Last Filed: 06/10/25 19:52> Consultations Consultation #1: Did talk to our hospitalist Dr. Matta. She is going to review this patient. Have questions about patient's very mild hypocalcemia but she is going to get a blood transfusion, could chelate her calcium further. She did look up a whole bunch of information. We do need to rule out infectious etiology, she would recommend doing a chest CT to make sure there isn't pneumonia. Patient is indeed immunocompromised with the hypogammaglobulinemia. Thus, ruling out infectious etiologies very important with this patient's presentation of weakness despite no fever. She is not neutropenic. It is unclear whether she is considered out of remission of her multiple myeloma but it certainly looks that way based on her blood work to me. Will continue to look for urine source as well. When nursing staff attempted to catheterize patient, the got no return of urine, her brief had been wet. She really did not show any urine retained in the bladder on bladder scanning. Will continue to try to collect urine on her. <Julianne Villalba MD - Last Filed: 06/10/25 19:52> Time: 14:52 <Julianne Villalba MD - Last Filed: 06/10/25 19:52> Consultation #2: Did talk to Justin WORTHY in the transfer center at [facility]. Will try to talk to Hematology on this patient. Did talk to family about paging Hematology which we are waiting to hear back, pending chest CT to rule out pneumonia, pending blood transfusion for 1 unit packed red blood cells, hypocalcemia with thought of giving some IV calcium. Family feels the patient is felt to still be in remission from her multiple myeloma. 3:46 p.m.: Did speak with Dr. Thorne from Hematology in consultation. He is concerned that there is pancytopenia. The weakness may very well be just low hemoglobin. I do not have the capacity to do a peripheral smear here, it is a send out. If there is pneumonia and there was question of patient's not being in remission any longer, he would have a low threshold to transfer. Justin from the [facility] is going to work on this, I will get her images pushed down. <Julianne Villalba MD - Last Filed: 06/10/25 19:52> Time: 15:31 <Julianne Villalba MD - Last Filed: 06/10/25 19:52> Vital Signs Vital signs: Initial Vital Signs Temperature 98 F 06/08/25 11:37 Temperature Source Temporal Artery Scan 06/08/25 11:37 Pulse Rate 79 06/08/25 11:37 Pulse Rhythm Regular 06/08/25 11:37 Pulse Strength 3+ Normal 06/08/25 11:37 Respiratory Rate 18 06/08/25 11:37 Blood Pressure 103/49 L 06/08/25 11:37 Blood Pressure Mean 67 L 06/08/25 11:37 Blood Pressure Position Sitting 06/08/25 11:37 Pulse Oximetry 97 06/08/25 11:37 Oxygen Delivery Method Room Air 06/08/25 11:37 Vital Signs Temperature 98 F 06/08/25 11:37 Pulse Rate 79 06/08/25 11:37 Respiratory Rate 18 06/08/25 11:37 Blood Pressure 103/49 L 06/08/25 11:37 Pulse Oximetry 97 06/08/25 11:37 Oxygen Delivery Method Room Air 06/08/25 11:37 Temperature 98.6 F 06/08/25 20:29 Pulse Rate 72 06/08/25 20:29 Respiratory Rate 18 06/08/25 20:29 Blood Pressure 141/60 H 06/08/25 20:29 Pulse Oximetry 95 06/08/25 20:29 Oxygen Delivery Method Room Air 06/08/25 20:29 <Julianne Villalba MD - Last Filed: 06/10/25 19:52> Initial Vital Signs Temperature 98 F 06/08/25 11:37 Temperature Source Temporal Artery Scan 06/08/25 11:37 Pulse Rate 79 06/08/25 11:37 Pulse Rhythm Regular 06/08/25 11:37 Pulse Strength 3+ Normal 06/08/25 11:37 Respiratory Rate 18 06/08/25 11:37 Blood Pressure 103/49 L 06/08/25 11:37 Blood Pressure Mean 67 L 06/08/25 11:37 Blood Pressure Position Sitting 06/08/25 11:37 Pulse Oximetry 97 06/08/25 11:37 Oxygen Delivery Method Room Air 06/08/25 11:37 Vital Signs Temperature 98 F 06/08/25 11:37 Pulse Rate 79 06/08/25 11:37 Respiratory Rate 18 06/08/25 11:37 Blood Pressure 103/49 L 06/08/25 11:37 Pulse Oximetry 97 06/08/25 11:37 Oxygen Delivery Method Room Air 06/08/25 11:37 Temperature 98.6 F 06/08/25 20:29 Pulse Rate 72 06/08/25 20:29 Respiratory Rate 18 06/08/25 20:29 Blood Pressure 141/60 H 06/08/25 20:29 Pulse Oximetry 95 06/08/25 20:29 Oxygen Delivery Method Room Air 06/08/25 20:29 <Alistair Rubio MD - Last Filed: 06/08/25 17:51> Medications Administered Medications: Discontinued Medications Generic Name Dose Route Start Last Admin Trade Name Freq PRN Reason Stop Dose Admin Sodium Chloride 500 mls @ 500 mls/hr 06/08/25 12:20 06/08/25 13:33 0.9 % Sodium Chloride 500 Ml IV 06/08/25 13:19 Infused .Q1H ONE Infusion Calcium Gluconate/Sodium Chloride 1,000 mg in 50 mls @ 100 mls/hr 06/08/25 15:54 06/08/25 17:06 Calcium Gluc 1,000mg/50 Ml IVPB 06/08/25 16:23 Infused ONCE ONE Infusion <Julianne Villalba MD - Last Filed: 06/10/25 19:52> Discontinued Medications Generic Name Dose Route Start Last Admin Trade Name Freq PRN Reason Stop Dose Admin Sodium Chloride 500 mls @ 500 mls/hr 06/08/25 12:20 06/08/25 13:33 0.9 % Sodium Chloride 500 Ml IV 06/08/25 13:19 Infused .Q1H ONE Infusion Calcium Gluconate/Sodium Chloride 1,000 mg in 50 mls @ 100 mls/hr 06/08/25 15:54 06/08/25 17:06 Calcium Gluc 1,000mg/50 Ml IVPB 06/08/25 16:23 Infused ONCE ONE Infusion <Alistair Rubio MD - Last Filed: 06/08/25 17:51> Medical Decision Making MDM Narrative Medical decision making narrative: Patient signed out to Dr. Rubio at shift change-16 30. Received a ph one call back from [facility], Hematology Service, Dr. Ramu zarate, at about 5:45 p.m.. She accepts the patient in transfer to the hematology service at [facility] for further workup for her pancytopenia. She agrees with the initiation of the transfusion of packed red cells here in the ER. Results from Radiology about the outstanding CT scan show Impression : 1. No acute abnormalities of the chest identified. Patient remains with saturations at about 90-91% room air and is not short of breath. I updated the patient her . They are in agreement with the plan to transfer to [facility] for further workup. Transfusion has been initiated patient doing well so far. No signs of transfusion reaction Clinical impression 1. Pancytopenia 2. Generalized weakness <Alistair Rubio MD - Last Filed: 06/08/25 17:51> Lab Data Lab results reviewed: Yes I reviewed the patient's lab results <Julianne Villalba MD - Last Filed: 06/10/25 19:52> Labs: Lab Results 06/08/25 06/08/25 06/08/25 Range/Units 12:55 13:14 14:25 WBC 2.62 L (4.50-11.00) K/uL RBC 2.54 L (4.00-5.20) m/uL Hgb 7.5 L* (12.0-16.0) gm/dL Hct 24.2 L (33.0-51.0) % MCV 95 (80-100) fL MCH 30 (26-34) pg MCHC 31 L (32-36) gm/dL RDW Coeff of Ambreen 18.5 H (11.5-15.5) % Plt Count 54 L (140-440) K/uL Neut % (Auto) 40.5 L (42.0-72.0) % Lymph % (Auto) 39.3 (20-44) % [place] % (Auto) 11.8 H (0.0-11.0) % Eos % (Auto) 0.8 (0.0-7.0) % Baso % (Auto) 6.1 H (0.0-3.0) % Neut # (Auto) 1.10 L (1.7-7.0) K/uL Lymph # (Auto) 1.00 (0.90-2.90) K/uL [place] # (Auto) 0.30 (0.00-0.90) K/UL Eos # (Auto) 0.00 (0.00-0.50) K/uL Baso # (Auto) 0.20 (0.00-0.30) K/uL Abs Immat Gran (auto) 0.00 (0.00-0.30) K/uL Imm/Tot Granulo (auto) 1.5 % Sodium 134 L (135-149) mmol/L Potassium 4.3 (3.6-5.1) mmol/L Chloride 101 (96-114) mmol/L Carbon Dioxide 30 (20-32) mmol/L Anion Gap 3 L (7-15) mEq/L BUN 33 H (7-30) mg/dL Creatinine 1.1 (0.5-1.5) mg/dL Estimated GFR 50 ml/min Glucose 85 (60-115) mg/dL Lactate 0.9 (0.5-1.9) mmol/L Calcium 8.3 L (8.4-10.6) mg/dL Ionized Calcium Bk 1.10 L (1.11-1.30) mmol/L Magnesium 2.1 (1.5-2.6) mg/dL Total Bilirubin 0.9 (0.1-1.5) mg/dL AST 34 (12-35) U/L ALT 12 (4-35) U/L Alkaline Phosphatase 50 (40-150) U/L Troponin I < 0.01 (0.01-0.04) ng/mL C-Reactive Protein 2.3 H (0.5-1.0) mg/dL Total Protein 5.7 L (6.0-8.3) g/dL Albumin 3.5 (3.3-5.0) g/dL Procalcitonin 0.20 (<0.50) ng/mL Lab Acknowledgement Test Added Blood Type B Negative Antibody Screen NEGATIVE Crossmatch (AHG) See Detail 06/08/25 Range/Units 15:28 WBC (4.50-11.00) K/uL RBC (4.00-5.20) m/uL Hgb (12.0-16.0) gm/dL Hct (33.0-51.0) % MCV (80-100) fL MCH (26-34) pg MCHC (32-36) gm/dL RDW Coeff of Ambreen (11.5-15.5) % Plt Count (140-440) K/uL Neut % (Auto) (42.0-72.0) % Lymph % (Auto) (20-44) % [place] % (Auto) (0.0-11.0) % Eos % (Auto) (0.0-7.0) % Baso % (Auto) (0.0-3.0) % Neut # (Auto) (1.7-7.0) K/uL Lymph # (Auto) (0.90-2.90) K/uL [place] # (Auto) (0.00-0.90) K/UL Eos # (Auto) (0.00-0.50) K/uL Baso # (Auto) (0.00-0.30) K/uL Abs Immat Gran (auto) (0.00-0.30) K/uL Imm/Tot Granulo (auto) % Sodium (135-149) mmol/L Potassium (3.6-5.1) mmol/L Chloride (96-114) mmol/L Carbon Dioxide (20-32) mmol/L Anion Gap (7-15) mEq/L BUN (7-30) mg/dL Creatinine (0.5-1.5) mg/dL Estimated GFR ml/min Glucose (60-115) mg/dL Lactate (0.5-1.9) mmol/L Calcium (8.4-10.6) mg/dL Ionized Calcium Bk (1.11-1.30) mmol/L Magnesium (1.5-2.6) mg/dL Total Bilirubin (0.1-1.5) mg/dL AST (12-35) U/L ALT (4-35) U/L Alkaline Phosphatase (40-150) U/L Troponin I (0.01-0.04) ng/mL C-Reactive Protein (0.5-1.0) mg/dL Total Protein (6.0-8.3) g/dL Albumin (3.3-5.0) g/dL Procalcitonin (<0.50) ng/mL Lab Acknowledgement Test Added Blood Type Antibody Screen Crossmatch (AHG) <Julianne Villalba MD - Last Filed: 06/10/25 19:52> Lab Results 06/08/25 06/08/25 06/08/25 Range/Units 12:55 13:14 14:25 WBC 2.62 L (4.50-11.00) K/uL RBC 2.54 L (4.00-5.20) m/uL Hgb 7.5 L* (12.0-16.0) gm/dL Hct 24.2 L (33.0-51.0) % MCV 95 (80-100) fL MCH 30 (26-34) pg MCHC 31 L (32-36) gm/dL RDW Coeff of Ambreen 18.5 H (11.5-15.5) % Plt Count 54 L (140-440) K/uL Neut % (Auto) 40.5 L (42.0-72.0) % Lymph % (Auto) 39.3 (20-44) % [place] % (Auto) 11.8 H (0.0-11.0) % Eos % (Auto) 0.8 (0.0-7.0) % Baso % (Auto) 6.1 H (0.0-3.0) % Neut # (Auto) 1.10 L (1.7-7.0) K/uL Lymph # (Auto) 1.00 (0.90-2.90) K/uL [place] # (Auto) 0.30 (0.00-0.90) K/UL Eos # (Auto) 0.00 (0.00-0.50) K/uL Baso # (Auto) 0.20 (0.00-0.30) K/uL Abs Immat Gran (auto) 0.00 (0.00-0.30) K/uL Imm/Tot Granulo (auto) 1.5 % Sodium 134 L (135-149) mmol/L Potassium 4.3 (3.6-5.1) mmol/L Chloride 101 (96-114) mmol/L Carbon Dioxide 30 (20-32) mmol/L Anion Gap 3 L (7-15) mEq/L BUN 33 H (7-30) mg/dL Creatinine 1.1 (0.5-1.5) mg/dL Estimated GFR 50 ml/min Glucose 85 (60-115) mg/dL Lactate 0.9 (0.5-1.9) mmol/L Calcium 8.3 L (8.4-10.6) mg/dL Ionized Calcium Bk 1.10 L (1.11-1.30) mmol/L Magnesium 2.1 (1.5-2.6) mg/dL Total Bilirubin 0.9 (0.1-1.5) mg/dL AST 34 (12-35) U/L ALT 12 (4-35) U/L Alkaline Phosphatase 50 (40-150) U/L Troponin I < 0.01 (0.01-0.04) ng/mL C-Reactive Protein 2.3 H (0.5-1.0) mg/dL Total Protein 5.7 L (6.0-8.3) g/dL Albumin 3.5 (3.3-5.0) g/dL Procalcitonin 0.20 (<0.50) ng/mL Lab Acknowledgement Test Added Blood Type B Negative Antibody Screen NEGATIVE Crossmatch (AHG) See Detail 06/08/25 Range/Units 15:28 WBC (4.50-11.00) K/uL RBC (4.00-5.20) m/uL Hgb (12.0-16.0) gm/dL Hct (33.0-51.0) % MCV (80-100) fL MCH (26-34) pg MCHC (32-36) gm/dL RDW Coeff of Ambreen (11.5-15.5) % Plt Count (140-440) K/uL Neut % (Auto) (42.0-72.0) % Lymph % (Auto) (20-44) % [place] % (Auto) (0.0-11.0) % Eos % (Auto) (0.0-7.0) % Baso % (Auto) (0.0-3.0) % Neut # (Auto) (1.7-7.0) K/uL Lymph # (Auto) (0.90-2.90) K/uL [place] # (Auto) (0.00-0.90) K/UL Eos # (Auto) (0.00-0.50) K/uL Baso # (Auto) (0.00-0.30) K/uL Abs Immat Gran (auto) (0.00-0.30) K/uL Imm/Tot Granulo (auto) % Sodium (135-149) mmol/L Potassium (3.6-5.1) mmol/L Chloride (96-114) mmol/L Carbon Dioxide (20-32) mmol/L Anion Gap (7-15) mEq/L BUN (7-30) mg/dL Creatinine (0.5-1.5) mg/dL Estimated GFR ml/min Glucose (60-115) mg/dL Lactate (0.5-1.9) mmol/L Calcium (8.4-10.6) mg/dL Ionized Calcium Bk (1.11-1.30) mmol/L Magnesium (1.5-2.6) mg/dL Total Bilirubin (0.1-1.5) mg/dL AST (12-35) U/L ALT (4-35) U/L Alkaline Phosphatase (40-150) U/L Troponin I (0.01-0.04) ng/mL C-Reactive Protein (0.5-1.0) mg/dL Total Protein (6.0-8.3) g/dL Albumin (3.3-5.0) g/dL Procalcitonin (<0.50) ng/mL Lab Acknowledgement Test Added Blood Type Antibody Screen Crossmatch (AHG) <Alistair Rubio MD - Last Filed: 06/08/25 17:51> Imaging Data Chest x-ray: Attestation: I have reviewed the pertinent imaging results. <Julianne Leiva MD - Last Filed: 06/10/25 19:52> My impression: She does appear to have cardiomegaly, question some circular appearing consolidative changes right side of the chest. Will await Radiology read on this. <Julianne Villalba MD - Last Filed: 06/10/25 19:52> Radiologist's impression: Patient: KARTIK VEGA Facility:?[facility] Patient ID:?[id number] Site Patient ID:?[id number]. Site :?[id number] Study:?XRay-Chest PORTABLE-06/08/2025 12:45:25 PM Ordering Physician:Renee Whitaker Final Report: INDICATION: Weakness TECHNIQUE: Single view chest.. Right Port-A-Cath unchanged. Comparison 09/11/2023 FINDINGS: Enlarged cardiac silhouette possible nodular opacities right mid lung could represent infiltrates. No effusion. Dictated by Ciara Morfin MD @ 06/08/2025 2:41:44 PM (Electronic Signature) <Julianne Villalba MD - Last Filed: 06/10/25 19:52> ECG Data Attestation: I personally reviewed and interpreted this ECG as follows: (Sinus rhythm, 77 beats per minute, Pac seen. Flipped T-waves with out ST segment change anterior precordial leads up to V5. Appears to be unchanged from prior.) <Julianne Villalba MD - Last Filed: 06/10/25 19:52> Prior ECG tracings: available for review <Julianne Villalba MD - Last Filed: 06/10/25 19:52> Discharge Plan Discharge Clinical Impression: Weakness, Anemia <Julianne Villalba MD - Last Filed: 06/10/25 19:52> Prescriptions: No Action melatonin 3 mg capsule 4 mg PO HS PRN magnesium oxide 400 mg magnesium capsule 400 mg PO DAILY calcium carbonate 500 mg calcium (1,250 mg) tablet 500 mg PO DAILY cyanocobalamin (vitamin B-12) 100 mcg tablet 1,000 mcg PO DAILY mirtazapine 7.5 mg tablet 7.5 mg PO QPM Qty: 90 3RF acetaminophen 325 mg tablet 650 mg PO QID PRNQty: 30 0RF albuterol sulfate [Ventolin HFA] 90 mcg/actuation HFA aerosol inhaler 2 inh inhalation Q4H PRN multivitamin Tablet 1 tab PO DAILY Xarelto 20 mg tablet 20 mg PO QPM Qty: 90 3RF Rx Instructions: TAKE 1 TABLET BY MOUTH DAILY WITH EVENING MEAL pregabalin [Lyrica] 75 mg capsule 75 mg PO HS Qty: 90 3RF carvedilol 12.5 mg tablet 6.25 mg PO BID Qty: 90 1RF <Julianne Villalba MD - Last Filed: 06/10/25 19:52> Follow Up/Referrals: Marylou Roberts MD [Primary Care Provider, Internal Medicine] <Julianne Villalba MD - Last Filed: 06/10/25 19:52>
--- NOTE | 2025-06-08 12:21 | CRLHL7_ITS ---
For Patients: As a result of the Century Cures Act, medical imaging exams and procedure reports are released immediately into your electronic medical record. You may view this report before your referring provider. If you have questions, please contact your health care provider. INDICATION: Weakness TECHNIQUE: Single view chest.. Right Port-A-Cath unchanged. Comparison 09/11/2023 FINDINGS: Enlarged cardiac silhouette possible nodular opacities right mid lung could represent infiltrates. No effusion. Dictated by Ciara Morfin MD @ 06/08/2025 2:41:44 PM (Electronically Signed)
--- OUTSIDE RECORDS SUMMARY | 2025-06-08 12:34 | XMS_ITS ---
Author Organization [facility] Address [address] [place] [address] Care Team Providers Care Body Welder Name Role Phone Elsewhere, Pcp Primary Care Provider Unavailabl e Active Problems * This document contains information received from the source organization and may not represent a complete record from that organization. 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 on 12/17/2017 Current Treatment and Therapy Plans immune globulin (IVIG)* Plan Start Date:02/03/2025 Plan Provider:Abdirizak Jiménez M.D., Ph.D. Linked Problems Hypogammaglobulinemia (HCC)M ultiple Myeloma In Relapse (HCC) Treatment Medications No medications scheduled. Vascular Access Patency - Implanted Vascular Access Device (IVAD) Venous Non-Valved* Plan Start Date:01/31/2025 Linked Problems Multiple Myeloma In Relapse (HCC) Treatment Medications No medications scheduled. Past Treatment and Therapy Plans Blood Plan Name Start Date Discontinue Date Treatment Medications Discontinue Reason Plan Provider *BLOOD ADMINISTRATION - RED BLOOD CELLS (RBC) - FOR PATIENTS GREATER THAN 35 KG (UNITS) 09/12/2022 11/07/2022 No medications scheduled. Therapy Complete Marychuy Duarte APRN, C.N.P., D.N.P., M.S. Flushes/Hydration Plan Name Start Date Discontinue Date Treatment Medications Discontinue Reason Plan Provider VASCULAR ACCESS PATENCY - IMPLANTED VASCULAR ACCESS DEVICE (IVAD) VENOUS NON-VALVED 05/23/2022 01/31/2025 No medications scheduled. Unlisted Krystyna Langford M.D. VASCULAR ACCESS PATENCY - IMPLANTED VASCULAR ACCESS DEVICE (IVAD) VENOUS NON-VALVED 05/17/2021 05/19/2022 No medications scheduled. Therapy Complete Krystyna Langford M.D. VASCULAR ACCESS PATENCY - IMPLANTED VASCULAR ACCESS DEVICE (IVAD) VENOUS NON-VALVED 12/11/2019 05/17/2021 No medications scheduled. Therapy Complete - VASCULAR ACCESS PATENCY - PERIPHERAL INTRAVENOUS CATHETER AND RAPID INFUSION CATHETER 03/21/2018 03/28/2019 No medications scheduled. Upgrade 2019 Therapy Plan Conversion - Hem/Onc Therapy Plan 1 Plan Name Start Date Discontinue Date Treatment Medications Discontinue Reason Plan Provider immune globulin (IVIG) 01/18/2024 12/30/2024 No medications scheduled. Therapy Complete Teresa Roy P.A.-C., M.S. Hematology / Oncology Treatment 1 Plan Name Start Date Discontinue Date Treatment Medications Discontinue Reason Plan Provider [facility] [id number] Cohort A1 / A2 ( Cevostamab ) 3 11/22/2023 Non-Chemo Study Medication - Custom IVPBResearch IRB [id number] cevostamab ([id number])Res ear IRB [id number] cevostamab intravenous syringe ([id number])Res [facility] IRB [id number] cevostamab IPVB 100 mL ([id number]) Patient Preference Gilberto Castillo M.D. 3 of 7 cycles started Daratumumab ( Subcutaneous ) / Bortezomib / dexAMETHasone 01/30/2023 04/25/2023 bortezomib (Velcade)darat umumab-hyaluro nidase-[facility] (Darzalex Faspro) Unlisted Abdirizak Jiménez M.D., Ph.D. Treatment not started [facility] [id number] Arm B Dose Expansion ( [id number] ) 2 11/07/2022 [facility] IRB [id number] IRB [id number] IVPB Progression Teresa Roy P.A.-C., M.S. 16 of 18 cycles started IPD ( Ixazomib / Pomalidomide / Dexamethasone ) 0 09/07/2020 ixazomib (Ninlaro)pomal idomide (Pomalyst) Therapy Complete Abdirizak Jiménez M.D., Ph.D. 4 of 5 cycles completed Pomalidomide / Dexamethasone 8 12/10/2019 pomalidomide (Pomalyst) Unlisted Abdirizak Jiménez M.D., Ph.D. 1 of 10 cycles completed Daratumumab / Lenalidomide / Dexamethasone 01/26/2017 03/29/2018 daratumumab (Darzalex)dick tumumab (Darzalex) IVPB in 500 mL (Darzalex)cindy lidomide (Revlimid) Progression Teresa Roy P.Noble.-C., M.S. 8 of 12 cycles started Hematology / Oncology Treatment 2 Plan Name Start Date Discontinue Date Treatment Medications Discontinue Reason Plan Provider Cycles Venetoclax 3 04/25/2023 venetoclax (Venclexta) Therapy Complete Teresa Roy P.Noble.ClintC., M.S. 2 of 3 cycles completed Selinexor 1 06/09/2021 selinexor (Xpovio) Therapy Complete Abdirizak Jiménez M.D., Ph.D. 3 of 6 cycles started Elotuzumab / Lenalidomide / Dexamethasone 8 06/16/2020 elotuzumab (Empliciti)el otuzumab (Empliciti) IVPB (10 mg/kg)lenalid omide (Revlimid) Not Effective Abdirizak Jiménez M.D., Ph.D. 1 of 3 cycles started Hematology / Oncology Treatment 3 Plan Name Start Date Discontinue Date Treatment Medications Discontinue Reason Plan Provider Cycles Carfilzomib Twice Weekly 9 06/16/2020 carfilzomib (Kyprolis) Not Effective Krystyna Langford M.D. Treatment not started Infusion Therapy 1 Plan Name Start Date Discontinue Date Treatment Medications Discontinue Reason Plan Provider Hydration 09/20/2023 09/20/2023 No medications scheduled. Therapy Complete Melissa Hernandez APRN, C.N.P., D.N.P. immune globulin (IVIG) 09/28/2022 09/28/2022 No medications scheduled. Therapy Complete Abdirizak Jiménez M.D., Ph.D. tixagevimab-cilgav imab (EVUSHELD) - Emergency Use Authorization 05/24/2022 05/24/2022 No medications scheduled. Therapy Complete Abdirizak Jiménez M.D., Ph.D. TIXAGEVIMAB-CILGAV IMAB ([place]HELD) - EMERGENCY USE AUTHORIZATION 10/27/2021 10/27/2021 No medications scheduled. Therapy Complete Philipp Park M.D., M.S. tixagevimab-cilgav imab (EVUSHELD) - Emergency Use Authorization 09/17/2021 09/17/2021 No medications scheduled. Therapy Complete Abdirizak Jiménez M.D., Ph.D. MEDICATION AT INFUSION THERAPY 04/26/2018 04/09/2019 No medications scheduled. Therapy Complete Abdirizak Jiménez M.D., Ph.D. Past Radiation Episodes * 3D BI TESTER: Left HandOverview* First Treatment Date Last Treatment Date Treatment Site Technique Goal Episode Provider 08/08/2023 08/18/2023 Left Hand 3D BI TESTER Curative * Linked Problems Malignant Neoplasm Of Hand S quamous Cell Carcinoma Left Treatment Courses* Course 1xHand 08/08/2023 - 08/18/2023 Treatment Period Fraction Dose Fractions Total Dose Plans Planned [id number] 08/08/2023 - 08/18/2023 700 cGy 5 / 5 3 ,500 cGy Reference Points Delivered [id number] 08/08/2023 - 08/18/2023 3,500 cGy Cellular Therapy * Episode Name Episode Status Transplant/Infusion Date Transplant/Infusion Center Donor Information 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 Txp Resolved Day 14y 2m (03/16/11) [facility] N/A N/A N/A No contact on file * Cell Therapy Appointments (05/09/2025 - 07/09/2025) When Visit Type With Description No appointments Lifetime Dose Tracking * Chemical Lifetime Dose Automatic Entry Manual Entr y Radiation 8 mGy 8 mGy 0 mGy Fluoro Time 3.99 minutes 3.99 minutes 0 minutes DAP (uGy-m2) 161 uGy-m2 161 uGy-m2 0 uGy-m2 Resolved Problems Problem Noted Date Diagnosed Date Resolved Date Acute Respiratory Failure With Hypoxia 09/02/2023 09/04/2023 Encephalopathy Metabolic 08/23/2023 Pneumonia 05/10/2023 08/23/2023 Pneumonitis Due To Inhalatio n Of Food And Vomit 05/10/2023 08/23/2023 Other Specified Abnormalitie s Of Plasma Proteins 05/10/2023 08/23/2023 Frailty Age Related Physical Debility 05/10/2023 08/23/2023 Hypotension 05/10/2023 08/23/2023 Parvovirus As The Cause Of D iseases Classified Elsewhere 09/27/2022 08/23/2023 Oliguria 11/17/2021 08/23/2023 Multiple Myeloma Not Having Achieved Remission 11/15/2021 08/23/2023 Failure Renal Acute (Acute Kidney Injury) 10/22/2020 11/17/2021 Deconditioned 10/16/2019 08/23/2023 Pancytopenia Chemotherapy Induced 10/16/2019 08/23/2023 Malnutrition Protein-Calorie Unspecified 10/04/2019 08/23/2023 Acute On Chronic Systolic (C ongestive) Heart Failure 09/17/2019 12/12/2019 Hypertensive Heart And Chron ic Kidney Disease With Heart Failure And Stage 1 To 4 Chronic Kidney Disease Or Unspecified Chronic Kidney Disease 09/17/2019 08/23/2023 Respiratory Failure With Hypoxia 09/17/2019 11/17/2021 Multiple Myeloma In Relapse 03/27/2018 08/23/2023 Retention Urinary 12/24/2014 08/23/2023 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
--- OUTSIDE RECORDS SUMMARY | 2025-06-08 12:34 | XMS_ITS | Clinical Summary ---
Author Organization [facility] Address [address] [place] [address] Care Team Providers Care Director Specialty Name Role Phone Marylou Roberts MD Primary Care Provider [phone] Allergies No known active allergies Medications acetaminophen (TYLENOL EXTRA STRGTH) 500 mg tablet Take 500 mg by mouth every 6 hours if needed. Active Calcium-Cholecal ciferol, D3, 600 mg-10 mcg (400 unit) chew Chew 1 Tablet by mouth. Active carvediloL (COREG) 6.25 mg tablet Take 6.25 mg by mouth. Active cyanocobalamin (VITAMIN B12) 1,000 mcg tablet Take 1,000 mcg by mouth. Active dexAMETHasone (DECADRON) 4 mg tablet Take 20 mg by mouth once weekly. 11/10/2022 Active magnesium oxide (MAG-OX 400) 400 mg tablet Take 400 mg by mouth. Active melatonin 3 mg tablet Take 3 mg by mouth. Active mirtazapine (REMERON) 7.5 mg tablet Take 7.5 mg by mouth. Active multivitamins with minerals tablet Take 1 Tablet by mouth once daily. Active pregabalin (LYRICA) 75 mg capsule Take 75 mg by mouth. Active rivaroxaban (XARELTO) 20 mg tablet Take 20 mg by mouth. 04/09/2021 Active venetoclax (VENCLEXTA) 100 mg tab tablet Take 400 mg by mouth. 10/25/2022 Active DULoxetine (CYMBALTA) 30 mg Delayed-release capsule Take 30 mg by mouth. Active Social History Tobacco Use Types Packs/Day Years Used Date Smoking Tobacco: Former Cigarettes Smokeless Tobacco: Never Tobacco Cessation:Counseling Given: Yes Comments Unknown Sex and Gender Information Value Date Recorded Sex Assigned at Not on file Legal Sex Female 1:09 PM [employer] Gender Identity Not on file Sexual Orientation Not on file Obstetrics History Last Filed Vital Signs Vital Sign Reading Time Taken Comments Blood Pressure 129/81 01/04/2023 8:47 AM CDT Pulse 54 01/04/2023 8:47 AM CDT Temperature - - Respiratory Rate - - Oxygen Saturation 94% 01/04/2023 8:47 AM CDT Inhaled Oxygen Concentration - - Weight - - Height - - Body Mass Index - - Plan of Treatment Health Maintenance Due Date Last Done Comments Tetanus booster 1952 Depression screening for age 12+ 1953 BMI (ht and wt on same day) for age 18+ 12/07/1959 Zoster (shingles) series for age 50+ (1 of 2) 1960 Pneumococcal series for age 50+ (1 of 1 - PCV) 12/07/1991 DEXA/DXA scan for age 65+ 2006 Medicare Wellness for age 65+ 2006 RSV vaccine for adults or (1 - 1-dose 75+ series) 2016 COVID-19 vaccine series ( season) 2025 06/20/2023, 05/07/2021, 10/27/2020, Additional history exists Influenza Vaccine (#1) 2025 Hepatitis B series for 19+ Aged Out N o longer eligible based on patient's age to complete this topic Insurance * Guarantor: KARTIK Medrano Account Type Relation to Patient Date of Phone Billing Address Personal/Family Self 1940 [id number] [place] [id number] MEDICARE [place] ONLY [facility] [place] [id number] Care Teams Director Specialty Relationship Specialty Start Date End Date Marylou Roberts MD [address] [place] [address] PCP - General Internal Medicine 01/04/23
--- OUTSIDE RECORDS SUMMARY | 2025-06-08 12:35 | XMS_ITS | Clinical Summary ---
Author Organization [facility] Address [address] [place] [address] Care Team Providers Care Venetian Blind Installer Name Role Phone Elsewhere, Pcp Primary Care Provider Unavailabl e Source Comments Patient records contain information from all sites at [facility]. For routine questions regarding patient records, call [phone] during business hours, M-F 8:00 AM - 5:00 PM Central Time. Record requests for emergency care only can be directed to [phone] at any time.[facility] Allergies Active Allergy Reactions Criticality Noted Date Comments Cat Dander Other (see comments) 12/28/2010 Itching, Asthma. House Dust Other (see comments) 12/28/2010 Asthma. Pentamidine Shortness of breath Medium 05/11/2023 Bronchospasm 05/11/23 w/ pentamidine neb in hospital Medications * This document contains information received from the source organization and may not represent a complete record from that organization. pregabalin (LYRICA) 75 mg capsule Take 1 capsule by mouth daily. 3 Active mirtazapine (REMERON) 7.5 mg tablet daily. 0 Active calcium carbonate-vitami n D3 600 mg-10 mcg (400 unit) tablet,chewable Chew 1 tablet daily. Active cyanocobalamin (VITAMIN B12) 1,000 mcg tablet Take 1,000 mcg by mouth daily. Active magnesium oxide (MAG-OX) 400 mg (241.3 mg magnesium) tablet Take 400 mg by mouth every morning before breakfast. Active melatonin 3 mg tablet Take 4 mg by mouth at bedtime. Active multivitamin-min erals (ICAPS PLUS) tablet Take 1 tablet by mouth daily. Active spirometers and accessories device Active carvediloL (COREG) 12.5 mg tabletIndication s:Chronic Systolic (Congestive) Heart Failure (HCC) Take 0.5 tablets (6.25 mg total) by mouth 2 (two) times a day with meals. 180 tablet 4 3 Active rivaroxaban (XARELTO) 20 mg tablet Take 1 tablet (20 mg total) by mouth daily. 3 Active benzonatate (TESSALON PERLES) 100 mg capsule Take 1 capsule (100 mg total) by mouth 3 (three) times a day as needed for cough. 20 capsule 08/26/2023 11:12 AM ON SITE SOIL EVALUATOR 3 Active albuterol 90 mcg/actuation inhaler Inhale. 3 Active mucus clearing device device Aerobika Active acetaminophen (TylenoL) 325 mg tablet Take 650 mg by mouth every 6 (six) hours as needed. Active vit C,G-Nj-jxotc-lut ein-zeaxan (Ocuvite Lutein and Zeaxanthin) 60 mg-13.5 mg- 15 mg-2 mg-6 mg capsule Take 1 capsule by mouth daily. 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 09/12/2022 Other Senior Environmental Engineer Current Drug Therapy 03/15/2022 Chronic Systolic (Congestive) Heart Failure 11/26 Embolus Pulmonary Personal History 10/16/2019 Dysphagia Pharyngeal Phase 10/16/2019 Insomnia 10/16/2019 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 Prolonged QT Interval 09/19/2019 Chronic Kidney Disease (CKD) , Stage 3b Glomerular Filtration Rate (GFR) 30 To 44 09/17/2019 Hypertension Essential Primary 09/17/2019 Atherosclerosis Of [place] Ar teries Of Other Extremities With Ulceration 09/05/2017 Polyneuropathy 04/21/2011 Osteoporosis 04/21/2011 Asthma 04/21/2011 Hypothyroidism 04/21/2011 Multiple Myeloma In Relapse 02/25/2010 Cancer Staging:Clinical stage from 03/08/2010: Porh-2-ohoqgueddbqaf (mg/L): 3.6, Albumin (g/dL): 4.8, ISS: Stage II, High-risk cytogenetics: Unknown, LDH: Normal - Signed by Pura Vásquez RJose F on 12/17/2017 Resolved Problems Problem Noted Date Diagnosed Date [...] Autologous 03/16/2011 08/23/2023 Neuropathy Toxic 01/13/2011 08/23/2023 Encounters Date Type Department Care Team Description 04/15/2025 1:30 PM CDT Infusion Department of Infusion Therapy in [place], [place] [address] [place] [phone] Dolores Jiménez M.D., Ph.D. Hypogammaglobulinemia (HCC) (Primary Dx); Multiple Myeloma In Relapse (HCC) Discharge Disposition: Home or Self Care 04/10/2025 Clinical Communication Department of Infusion Therapy in [place], [place] [address] [place] [address] Dalia Ochoa R.N. 03/19/2025 Clinical Communication Division of Hematology in [place], [place] [address] [place] [address] Teresa Roy P.A.-C., M.S. from Last 3 Months Immunizations Immunization Administration Dates Next Due HepB Adult 06/20/2013,04/23/2012 HepB, Unspecified 06/25/2012 Hib (PRP-T) (ACTHIB, HIBERIX) 06/20/2013, 013,04/23/2012 IPV 06/20/2013,11/08/2012,04/23/2012 Influenza Split 06/12/2012 Influenza high dose QV(65 ye ars or older) (PF) 06/20/2023,07/03/2022,05/31/2021 Influenza, Seasonal, Injectable 06/28/2010 PCV13 12/31/2013,06/20/2013 PPSV23 04/23/2012 SARS-COV-2 (COVID-19) - MODE RNA (12 YEARS AND OLDER) Fall Seasonal 06/20/2023 Td Preservative Free (TENIVA C, DECAVAC) 06/20/2013 Td, (Adult) Unspecified 06/25/2012 Tdap 04/23/2012 influenza trivalent high dos e (HD)(PF) 06/20/2018,06/17/2016,06/26/2015,2012 Family History Medical History Relation Name Comments Hyperlipidemia (high cholesterol) Father jael hutchison armond Hypertension Father jael jung Stroke Father jael jung Breast cancer (in one breast) Mother 1 Arthritis Mother 2 brenda jung Asthma Mother 2 brenda jung Coronary artery disease Mother 2 brenda jung Hyperlipidemia (high cholesterol) Mother 2 brenda leahy Hypertension Mother 2 brenda jung Migraines Mother 2 brenda jung Diabetes Son dolores vega Relation Name Status Comments Father jael jung Alive Mother 1 Mother 2 brenda jung Alive Son dolores vega Alive Social History Tobacco Use Types Packs/Day Years Used Date Smoking Tobacco: Former Smokeless Tobacco: Never Tobacco Cessation:Counseling Given: Not Answered Comments:years ago Alcohol Use Standard Drinks/Week Comments Yes 3 (1 standard drink = 0.6 oz pur e alcohol) occasionally [facility] Runtasticities Answer Date Recorded In the past 12 months has e [employer], gas, oil, or water company threatened to shut off services in your home? No 05/26/2024 Humiliation, Afraid, Rape, a nd Kick questionnaire Answer Date Recorded Within the last year, have y ou been afraid of your partner or ex-partner? Patient unable to answer 10/12/2023 Within the last year, have y ou been humiliated or emotionally abused in other ways by your partner or ex-partner? Patient unable to answer 10/12/2023 Within the last year, have y ou been kicked, hit, slapped, or otherwise physically hurt by your partner or ex-partner? Patient unable to answer 10/12/2023 Within the last year, have y ou been raped or forced to have any kind of sexual activity by your partner or ex-partner? Patient unable to answer 10/12/2023 Hunger Vital Sign Answer Date Recorded Within the past 12 months, y ou worried that your food would run out before you got the money to buy more. Never true 05/26/20 24 Within the past 12 months, t he food you bought just didn't last and you didn't have money to get more. Never true 05/26/2024 PRAPARE - Transportation Answer Date Re corded In the past 12 months, has l ack of transportation kept you from medical appointments or from getting medications? No 04/29 In the past 12 months, has l ack of transportation kept you from meetings, work, or from getting things needed for daily living? No 05/26/2024 Housing Stability Answer Date Recorded What is your living situation today? I have a [facility] place to live 05/26/2024 Education Answer Date Recorded What is the highest level of school you have completed or the highest degree you have received? Master's degree (e.g., MA, MS, Migue, MEd, INSOLE CHANNELER, EDGARDO) 04/04/2020 Comments No Sex and Gender Information Value Date Recorded Sex Assigned at Female 05/25/2018 1:50 PM CDT Legal Sex Female 2:42 PM ON SITE SOIL EVALUATOR Gender Identity Female 05/25/2018 1:50 PM CDT Sexual Orientation Straight 05/25/2018 1: 50 PM CDT Last Filed Vital Signs Vital Sign Reading Time Taken Comments Blood Pressure 146/57 04/15/2025 6:52 PM CDT Pulse 66 04/15/2025 6:52 PM CDT Temperature 36.4 C (97.5 F) 04/15/2025 6:52 PM CDT Respiratory Rate 12 04/15/2025 6:52 PM CDT Oxygen Saturation 94% 10/17/2023 11: 37 AM ON SITE SOIL EVALUATOR Inhaled Oxygen Concentration - - Weight 59.4 kg (130 lb 15.3 oz) 04/15/2025 2:11 PM CDT Height 157 cm (5' 1.81) 02/03/2025 2:41 PM CDT Body Mass Index 24.1 02/03/2025 2:41 PM CDT Plan of Treatment Upcoming Encounters Date Type Department Care Team (Late st Contact Info) Description 06/23/2025 10:30 AM CDT Lab Department of Infusion Therapy in [address] [phone] Teresa Roy P.A.-C., M.S. [address] [place] [phone] 06/25/2025 2:00 PM CDT Office Visit Division of Hematology in [place], [place] [address] [place] [phone] Teresa Roy P.A.-C., M.S. [address] [place] [phone] Health Maintenance Due Date Last Done Comments Office Visit for Blood Pressure Check / Re-check 1941 Zoster Vaccines (1 of 2) 1960 RSV vaccine - (32-36 weeks) or 50+ years (1 - 1-dose 75+ series) 2016 COVID-19 Vaccine (6 - 2024- season) 2025 06/11/2024, 06/20/2023, 05/07/2021, Additional history exists Influenza Vaccine (#1) 2025 , 06/20/2023, 07/03/2022, Additional history exists DTaP,Tdap,and Td Vaccines (5 - Td or Tdap) 12/08/2034 12/08/2024, 06/20/2013, 06/25/2012, Additional history exists Mammogram Discontinued 09/11/2012 (Perf ormed elsewhere) Hepatitis B Vaccines Completed 06/20/2013, 06/25/2012, 04/23/2012 IPV Vaccines Completed 06/20/2013, 10/26, 04/23/2012 Pneumococcal vaccine (50+ years) Completed 12/31/2013, 06/20/2013, 04/23/2012 Hepatitis B Screening Discontinued 04/28/2023, 022 Fall Risk Screen (Annual) Completed 04/15/2025 HPV Vaccines Aged Out No longer eligi ble based on patient's age to complete this topic Medical Devices Implanted Type Area Nut And Bolt Assembler Device Identifier Shelf Expiration Date Model / Serial / Lot Conversions - Default Historical Implant Device Implanted:01/27 (Quantity not on file) Ankle Implant Left: Ankle Description:Body Location - Ankle L. pins. Device Status Text - Ankle Imp. Implantable Port Implantable Port Chest Procedures Procedure Name Priority Date/Time Associated Diagnosis Comments HEPATITIS B SURFACE ANTIGEN Routine 04/28/2023 11:38 AM CDT Multiple Myeloma In Relapse (HCC) from Last 3 Months or Most Recently Relevant to Health Maintenance Results * Hepatitis B Surface Antigen (04/28/2023 11:38 AM CDT) HBs Antigen, S Negative Negative 04/28/2023 3:38 PM CDT [facility] Blood (Blood, Venous) 04/28/2023 11:38 AM CDT 04/28/2023 2:48 PM CDT Teresa Roy P.A.-C. M.S. LAB MICROBIOLOGY - B LOOD ORDERABLES Final Result [facility] [address] [place] [address] [facility] [address] [place] [address] from Last 3 Months or Most Recently Relevant to Health Maintenance Insurance MEDICARE [employer] Member Subscriber Plan / Payer (Ef fective 2025-Present) Name:JENNIFER VEGA Relation to Subscriber:Spouse Name:DAVID VEGA Date of :1900 (Home) Address: [address] [place] [address] [address] [place] [id number] Payer ID:Not on file Type:PPO Address: [address] [address] [place] [address] Advance Directives For more information, please contact: [phone] Documents on File Type Date Recorded Patient Field Pipelines Supervisor Expl anation Advance Directives 12/17/2012 12:00 AM Leg acy document. See document viewer. * Full Code (Latest Code Status on File) Date Activated Date Inactivated Comments 10/13/2023 4:13 PM 10/17/2023 3:01 PM Question Answer Comments Full Code: Discussed * Full Code Date Activated Date Inactivated Comments 08/31/2023 4:21 PM 09/04/2023 4:17 PM Question Answer Comments Full Code: Not Discussed Due to: Patient not available * Full Code Date Activated Date Inactivated Comments 08/30/2023 12:35 PM 08/31/2023 4:21 PM Question Answer Comments Full Code: Discussed * Full Code Date Activated Date Inactivated Comments 08/23/2023 12:35 PM 08/26/2023 4:15 PM Question Answer Comments Full Code: Discussed * Full Code Date Activated Date Inactivated Comments 05/09/2023 10:05 AM 05/13/2023 4:01 PM Question Answer Comments Full Code: Discussed Care Teams Venetian Blind Installer Relationship Specialty Start Date End Date Elsewhere, Pcp PCP - [employer] Golf Cart Repairer 09/26/19
--- OUTSIDE RECORDS SUMMARY | 2025-06-08 12:35 | XMS_ITS | Encounter Summary ---
Author Organization [facility] Address [address] [place] [address] Care Team Providers Care Conservation Technician Name Role Phone Elsewhere, Pcp Primary Care Provider Unavailabl e Encounter Details Date Type Department Care Team (Late st Contact Info) Description 04/10/2025 Clinical Communication Department of Infusion Therapy in [place], [place] [address] [place] [phone] Dalia Ochoa R.N. [address] [place] [phone] Social History Tobacco Use Types Packs/Day Years Used Date Smoking Tobacco: Former Smokeless Tobacco: Never Comments:years ago Alcohol Use Standard Drinks/Week Comments Yes 3 (1 standard drink = 0.6 oz pur e alcohol) occasionally [facility] Utilities Answer Date Recorded In the past [address], gas, oil, or water company threatened to [...] your living situation today? I have a [facility] place to live 05/26/2024 Education Answer Date Recorded What is the highest level of school you have completed or the highest degree you have received? Master's degree (e.g., MA, MS, Migue, MEd, VARNISH INSPECTOR, [employer]GARDO) 04/04/2020 Comments No Sex and Gender Information Value Date Recorded Sex Assigned at Female 05/25/2018 1:50 PM CDT Legal Sex Female 2:42 PM APPLICATIONS CHEMIST Gender Identity Female 05/25/2018 1:50 PM CDT Sexual Orientation Straight 05/25/2018 1: 50 PM CDT documented as of this encounter Plan of Treatment Upcoming Encounters Date Type Department Care Team (Late st Contact Info) Description 06/23/2025 10:30 AM CDT Lab Department of Infusion Therapy in [address] [phone] Teresa Roy P.A.-C., M.S. [address] [place] [phone] 06/25/2025 2:00 PM CDT Office Visit Division of Hematology in [place], [place] [address] [place] [phone] Teresa Roy P.A.-C., M.S. [address] [place] [address] documented as of this encounter Visit Diagnoses Not on filedocumented in this encounter Additional Health Concerns Assessment Noted Time PHQ-9 Depression Total Score: 3 01/19/20 11 2:00 PM CDT documented as of this encounter Care Teams Conservation Technician Relationship Specialty Start Date End Date Elsewhere, Pcp PCP - General Machine Overhauler 09/26/19 documented as of this encounter
[2025-06-08] MEDS: 0.9 % SODIUM CHLORIDE 500 ML 500 ML IV (12:59)
[2025-06-08 13:03] LABS: Lactate* 0.9 mmol/L (0.5-1.9)
[2025-06-08 13:05] LABS: Hematocrit* 24.2 % (33.0-51.0); Immature Granulocytes Pct Auto 1.5 %; Mean Corpuscular HGB Conc 31 gm/dL (32-36); Mean Corpuscular Hemoglobin 30 pg (26-34); Mean Corpuscular Volume 95 fL (80-100); RDW Coefficient of Variation % 18.5 % (11.5-15.5); Red Blood Count* 2.54 m/uL (4.00-5.20); White Blood Count* 2.62 K/uL (4.50-11.00)
[2025-06-08 13:25] LABS: Immature Granulocytes Abs Auto 0.00 K/uL (0.00-0.30); Lymphocytes Absolute Auto 1.00 K/uL (0.90-2.90)
[2025-06-08 13:26] LABS: Hemoglobin* 7.5 gm/dL (12.0-16.0); Slide Review Reflex No
[2025-06-08 14:02] LABS: Albumin* 3.5 g/dL (3.3-5.0); Chloride* 101 mmol/L (96-114); Potassium* 4.3 mmol/L (3.6-5.1); Sodium* 134 mmol/L (135-149)
[2025-06-08 14:05] LABS: Alanine Aminotransferase* 12 U/L (4-35); Aspartate Amino Transferase* 34 U/L (12-35); Blood Urea Nitrogen* 33 mg/dL (7-30); Creatinine* 1.1 mg/dL (0.5-1.5); Estimated Glomerular Filt Rate 50 ml/min
[2025-06-08 14:06] LABS: Alkaline Phosphatase* 50 U/L (40-150); Anion Gap 3 mEq/L (7-15); Bilirubin Total* 0.9 mg/dL (0.1-1.5); Calcium* 8.3 mg/dL (8.4-10.6); Carbon Dioxide* 30 mmol/L (20-32); Glucose* 85 mg/dL (60-115); Total Protein* 5.7 g/dL (6.0-8.3)
[2025-06-08 14:32] LABS: Ionized Calcium* 1.10 mmol/L (1.11-1.30)
--- NOTE | 2025-06-08 15:27 | CRLHL7_ITS ---
For Patients: As a result of the Cures Act, medical imaging exams and procedure reports are released immediately into your electronic medical record. You may view this report before your referring provider. If you have questions, please contact your health care provider. INDICATION: Possible pneumonia. COMPARISON: Chest x-ray dated [address] scan dated 02 June 2023. Technique : Noncontrast chest CT scan. Findings : Right-sided Port-A-Cath. No mediastinal or hilar adenopathy. No axillary adenopathy. Atherosclerotic vascular calcifications. The lungs show a 4 mm pulmonary nodule along the right minor fissure which is unchanged. Minimal bibasilar atelectasis. No pneumothorax. No focal abnormalities identified in the visualized portions of the liver, spleen, pancreas, adrenal glands, and kidneys. Degenerative changes of the spine. Impression : 1. No acute abnormalities of the chest identified. Dictated by Dominick Morfin MD @ 06/08/2025 5:42:56 PM Please note that all CT scans at this facility use dose modulation, iterative reconstruction, and/or weight-based dosing when appropriate to reduce radiation dose to as low as reasonably achievable. Dictated by: Dominick Morfin MD @ 06/08/2025 17:43:10 (Electronically Signed)
[2025-06-08 16:01] LABS: Procalcitonin* 0.20 ng/mL (<0.50)
[2025-06-08] MEDS: CALCIUM GLUC 1,000MG/50 ML 1,000 MG/50 ML BAG 100 MG IVPB (16:24)
== END 2025-06-08 21:47 | disposition short-term general hospital (02) ==
PROVIDERS: Family Medicine; Emergency Provider Emergency Medicine; PCP Internal Medicine
DX: R53.1 Weakness (principal); D64.9 Anemia, unspecified; D61.818 Other pancytopenia
CPT/HCPCS: 36415; 36430; 71045; 71250; 80053; 81001; 82330; 83605; 83735; 84145; 84484; 85025; 86140; 86850; 86900; 86901; 86922; 93005; 94761; 96365; 99285; 99291; J0613; J7030; P9016

== ENCOUNTER 2025-06-08 21:05 | Outpatient (CLI) | payer MEDICARE, OTHER, SELFPAY | END 2025-06-08 21:06 | disposition home or self-care (01) | LOC: AMB 06-10 15:04 | PROVIDERS: PCP Internal Medicine; Visit Provider Family Medicine | DX: R53.1 Weakness (principal); D64.9 Anemia, unspecified | CPT/HCPCS: A0425; A0429 ==

== ENCOUNTER 2025-07-03 14:05 | Outpatient (CLI) | payer MEDICARE, OTHER, SELFPAY | END 2025-07-03 14:06 | disposition home or self-care (01) | LOC: AMB 07-29 07:58 | PROVIDERS: Visit Provider Emergency Medicine | DX: I46.9 Cardiac arrest, cause unspecified (principal) ==